=== PATIENT | female | born 1965 | race African-American/Black ===

== ENCOUNTER 2018-05-22 18:25 | Inpatient (IN) | payer OTHER ==
[2018-05-22] MEDS ORDERED: hydrALAZINE 20 MG/ML VIAL SLOW IVP SCH (19:15)
[2018-05-22] MEDS ORDERED: Ondansetron HCl/PF 4 MG/2 ML Vial IVP PRN (19:25)
[2018-05-22] MEDS ORDERED: PROVENTIL INHALER 6.7 G (200 INHALATIONS) INH PRN (19:29)
[2018-05-22] MEDS ORDERED: Sodium Bicarbonate 150 MEQ in Dextrose 5% in Water 1,000 ML IV SCH (19:30)
[2018-05-22] MEDS ORDERED: Carvedilol 6.25 MG TAB PO SCH (19:45)
[2018-05-22 20:06] LABS: Hemoglobin 4.9 g/dL (12.0-16.0); Mean Corpuscular HGB CONC 33.1 g/dL (32.0-36.0); Mean Corpuscular Hemoglobin 30.1 pg (27.0-31.0); Mean Corpuscular Volume 90.9 fL (78.0-98.0); Mean Platelet Volume 8.3 fL (7.4-10.4); Platelet Count 201 thou/uL (130-400); RBC Distribution Width 12.1 % (11.5-14.5); Red Blood Cell (RBC) Count 1.63 mill/uL (4.20-5.40); White Blood Cell (WBC) Count 13.4 thou/uL (4.8-10.8)
[2018-05-22] MEDS ORDERED: cloNIDine 0.1 MG TAB ONE (20:11)
[2018-05-22 20:16] LABS: Anion Gap 23 mmol/L (10-20); Calc. Creatinine Clearance 0 mL/min (70-130); Calcium 8.2 mg/dL (7.8-10.44); Carbon Dioxide 11 mmol/L (22-29); Chloride 111 mmol/L (98-107); Estimated GFR-MDRD 5; Glucose 93 mg/dL (70-105); Potassium 4.5 mmol/L (3.5-5.1); Sodium 140 mmol/L (136-145)
[2018-05-22 20:21] LABS: #Basophils 0.1 thou/uL (0.0-0.2); #Eosinphils 0.1 thou/uL (0.0-0.7); #Lymphocytes 2.4 thou/uL (1.20-3.40); #Monocytes 0.7 thou/uL (0.11-0.59); #Neutrophils 10.2 thou/uL (1.40-6.50); %Basophils 0.4 % (0.0-1.0); %Eosinophils 0.4 % (0.0-10.0); %Lymphocytes 17.6 % (21.0-51.0); %Monocytes 5.3 % (0.0-10.0); %Neutrophils 76.3 % (42.0-75.0); Anisocytosis SLIGHT = 6-15 cells (100X) (0-5/hpf); MDiff Complete? YES; PLT Morphology Comment Appears Adequate
[2018-05-22 20:24] LABS: CKMB 2.3 ng/mL (0-6.6)
[2018-05-22 20:27] LABS: BUN (Urea Nitrogen) 153 mg/dL (9.8-20.1)
[2018-05-22 20:32] LABS: Troponin I 0.303 ng/mL (< 0.028)
[2018-05-22] MEDS ORDERED: Dextrose 5% in Water 1,000 ML IV PRN (23:16)
[2018-05-22] MEDS ORDERED: HumaLOG 300 UNITS/3 ML VIAL SC PRN (23:16)
[2018-05-22] MEDS ORDERED: Dextrose 50% Abboject 50 ML SYRINGE SLOW IVP PRN (23:16)
--- NOTE | 2018-05-22 23:48 | HP ---
PRIMARY CARE PHYSICIAN: Dr. Ynes Jauregui. CODE STATUS: FULL CODE. TIME OF EVALUATION: 7:10 p.m. CHIEF COMPLAINT: Shortness of breath and severe weakness. HISTORY OF PRESENT ILLNESS: A 53 years old female patient with past medical history of chronic anemi a, also history of hypertension, diabetes who came to the hospital after having severe generalized we akness, associated with shortness of breath, no clear triggers, no alleviating factors. Symptoms hav e been present for few weeks now getting very severe today, patient also feels dry. REVIEW OF SYSTEMS: Constitutional: Generalized weakness, dysuria, no fever, no chills. Respiratory : No cough, sputum production or shortness of breath. Cardiovascular: No chest pain, palpitation. Gastrointestinal: The patient had nausea. No vomiting, diarrhea or abdominal pain. YARN DUMPER: No dizzi ness, headache or feeling lightheaded. Genitourinary: No burning with urination. Extremities: No leg swelling. All other systems were reviewed and negative except for the findings mentioned above. PAST MEDICAL HISTORY: As mentioned in the HPI. PAST SURGICAL HISTORY: Positive for cardiac stents x4, hysterectomy, cholecystectomy. PSYCHIATRIC HISTORY: Includes anxiety. FAMILY HISTORY: Father had malignant hypertension. KNOWN ALLERGIES: No known drug allergies. REPORTED MEDICATIONS: Amlodipine, ProAir, ramipril, carvedilol, hydralazine, atorvastatin, Zetia, as pirin, prednisone, levofloxacin, and clonidine. Medications were reconciled by myself. PHYSICAL EXAMINATION: VITAL SIGNS: On presentation, blood pressure 189/103, heart rate was 90, respiratory rate was 24, te mperature 98, oxygen saturation 100. GENERAL APPEARANCE: The patient is alert, oriented, not in any acute distress. HEENT: Eyes: Normal conjunctiva, dry oral mucosa, anicteric. NECK: No JVD. RESPIRATORY: Bilateral air entry. No rales, no wheezing. Symmetric expansion. CARDIOVASCULAR: Normal rate, regular rhythm. No murmurs, no gallop. No edema. ABDOMEN: Soft, normal bowel sounds. MUSCULOSKELETAL: Baseline range of motion and strength. No tenderness. SKIN: Pale, warm and intact. No redness. Peripheral pulses are present. Capillary refill seems to be intact. NEUROLOGIC: Baseline sensory. No evidence of any new focal weakness. Baseline speech. Cranial ner ves seem to be intact. PSYCHIATRIC: The patient is in good mood, no anxiety, oriented, optimal judgment. EKG was reviewed by myself, no acute specific findings were noted, normal sinus rhythm, no evidence o f any acute ischemic event. LABORATORY DATA: Reviewed. The patient has a white count of 13.4; hemoglobin 4 this is after one ID BC hemoglobin was 2; MCV 90; platelet count 201,000. Sodium 140, potassium 4.5, chloride 111, carbon dioxide was 11, anion gap 23, BUN 153, creatinine 9.6, GFR 5, glucose 93, calcium 9.2, troponi n 0.3. ASSESSMENT AND PLAN: The patient will be placed in the hospital with the following medical problems. 1. Severe anemia. The patient presented with hemoglobin 2.2 to [facility], the patient had received one PRBC and repeat hemoglobin here inhouse is 4.9. The patient will receive more blood tr ansfusion, we will monitor hemoglobin, we will adjust the treatment as needed, seems to be chronic. 2. Acute kidney injury that is severe, creatinine 9.62, the previous creatinine that we have on [address] for this patient it has been three years now is 1.0, we will consult Nephrology, will give hydrati on, patient also have severe metabolic acidosis, might need to put the patient on bicarbonate drip, C O2 was 11, we will follow Nephrology recommendations. 3. Severe anion gap metabolic acidosis likely secondary to acute kidney injury. We will treat under lying condition. The patient reported having a scant amount of urine. 4. Non ST elevation myocardial infarction, likely non ST elevation myocardial infarction type 2, tro ponin 0.3, will trend troponins, this is likely secondary to severe anemia. The patient had hemoglob in 2.2, also may be secondary to uncontrolled high blood pressure, patient presented with systolic of 200. We will trend troponins, we will treat underlying conditions. 5. Controlled diabetes type 2, reconcile home medications, place the patient on sliding scale. 6. Deep venous thrombosis prophylaxis.
[2018-05-22 23:52] LABS: Troponin I 0.413 ng/mL (< 0.028)
[2018-05-23] MEDS: cloNIDine 0.1 MG TAB PO SCH ×3 (00:16→16:00)
[2018-05-23] MEDS: hydrALAZINE 25 MG TAB PO SCH ×3 (00:16→16:01)
--- NOTE | 2018-05-23 01:31 | CON ---
DATE OF CONSULTATION: 05/22/2018 CONSULTING PHYSICIAN: Dr. Dinero from ER. REASON FOR CONSULTATION: Acute kidney injury. REASON FOR ADMISSION: Nausea, vomiting, not feeling well. HISTORY OF PRESENT ILLNESS: A 53-year-old female with history of hyperlipidemia, hypertension, diabe leonid, chronic kidney disease, came to the hospital with not feeling well and was found to have severel y anemic and elevated creatinine and Nephrology was consulted. The patient denies having any kidney problems in the past. The patient does have stuttering and she is a poor historian and no family mem bers are available. She denies any chest pain, fever or chills. No skin rash. PAST MEDICAL HISTORY: Positive for type 2 diabetes, hypertension, hyperlipidemia, coronary artery di sease, and possible seizure disorder. HOME MEDICATIONS: List not available. ALLERGIES: No known drug allergies. PAST SURGICAL HISTORY: Tubal ligation, hysterectomy. SOCIAL HISTORY: She used to smoke in the past. No alcohol or illicit drug abuse reported. FAMILY HISTORY: Positive for heart disease. REVIEW OF SYSTEMS: The following complete review of systems was negative, unless otherwise mentioned in the HPI or below: Constitutional: Weight loss or gain, ability to conduct usual activities. Ski n: Rash, itching. Eyes: Double vision, pain. ENT/Mouth: Nose bleeding, neck stiffness, pain, tend erness. Cardiovascular: Palpitations, dyspnea on exertion, orthopnea. Respiratory: Shortness of b reath, wheezing, cough, hemoptysis, fever or night sweats. Gastrointestinal: Poor appetite, abdomin al pain, heartburn, nausea, vomiting, constipation, or diarrhea. Genitourinary: Urgency, frequency, dysuria, nocturia. Musculoskeletal: Pain, swelling. Neurologic/Psychiatric: Anxiety, depression. Allergy/Immunologic: Skin rash, bleeding tendency. PHYSICAL EXAMINATION: GENERAL: This is a well-built female in no apparent distress. VITAL SIGNS: Temperature 98.1, pulse 80, respiratory rate 18, blood pressure 190/112. HEENT: Atraumatic, normocephalic. Oral mucosa is moist. NECK: Supple, no masses. CARDIOVASCULAR: S1, S2 heard. Rate and rhythm regular. RESPIRATORY: Clear. GASTROINTESTINAL: Abdomen is soft. MUSCULOSKELETAL: edema. DERMATOLOGIC: No skin rash. NEUROLOGIC: Alert, awake. PSYCHIATRIC: Mood and affect normal. LABORATORY DATA: Hemoglobin is 4.9, WBC is 13.4. Potassium is 4.5, BUN is 153, and creatinine is 9. 6. ASSESSMENT AND PLAN: 1. Acute kidney injury on chronic kidney disease versus chronic kidney disease. The plan is to hydr ate her and monitor renal function. Old labs not available from 2014 . Recommend doing a renal ultrasound. 2. Edema, controlled. 3. Hypertension, stable. 4. Anemia. Agree with transfusion and rule out any bleed. 5. Metabolic acidosis, supplement bicarbonate. No acute indication for dialysis. Continue hydration and we will follow. Avoid nephrotoxins. Thank you for the consult.
[2018-05-23 05:38] LABS: #Basophils 0.1 thou/uL (0.0-0.2); #Lymphocytes 1.8 thou/uL (1.20-3.40); #Monocytes 0.9 thou/uL (0.11-0.59); #Neutrophils 6.6 thou/uL (1.40-6.50); %Basophils 1.2 % (0.0-1.0); %Eosinophils 0.4 % (0.0-10.0); %Lymphocytes 19.3 % (21.0-51.0); %Monocytes 9.5 % (0.0-10.0); %Neutrophils 69.5 % (42.0-75.0); Hemoglobin 7.5 g/dL (12.0-16.0); Mean Corpuscular HGB CONC 34.1 g/dL (32.0-36.0); Mean Corpuscular Hemoglobin 30.7 pg (27.0-31.0); Mean Platelet Volume 8.6 fL (7.4-10.4); Platelet Count 145 thou/uL (130-400); RBC Distribution Width 11.9 % (11.5-14.5); Red Blood Cell (RBC) Count 2.43 mill/uL (4.20-5.40); White Blood Cell (WBC) Count 9.5 thou/uL (4.8-10.8)
[2018-05-23 05:47] LABS: Anion Gap 17 mmol/L (10-20); Calc. Creatinine Clearance 7 mL/min (70-130); Calcium 7.9 mg/dL (7.8-10.44); Carbon Dioxide 18 mmol/L (22-29); Chloride 106 mmol/L (98-107); Estimated GFR-MDRD 6; Glucose 139 mg/dL (70-105); Potassium 3.7 mmol/L (3.5-5.1); Sodium 137 mmol/L (136-145)
[2018-05-23 05:58] LABS: BUN (Urea Nitrogen) 138 mg/dL (9.8-20.1)
[2018-05-23] MEDS: cloNIDine 0.1 MG TAB PO PRN (06:22)
--- NOTE | 2018-05-23 08:30 | RAD ---
AP VIEW CHEST: Date: 05/23/18 INDICATION: Chest congestion. COMPARISON: Prior exam dated 05/22/18. FINDINGS: The heart size is upper limits of normal. No confluent air space opacity, pleural effusion, or pneumo thorax is evident. No acute osseous abnormality is evident. IMPRESSION: No definite acute cardiopulmonary abnormality. POS: [facility]
[2018-05-23] MEDS: Atorvastatin Calcium 40 MG TAB PO SCH (08:41)
[2018-05-23] MEDS: Amlodipine 10 MG TAB PO SCH (08:41)
[2018-05-23] MEDS: Carvedilol 6.25 MG TAB PO SCH ×2 (08:42→17:25)
[2018-05-23] MEDS: Ezetimibe 10 MG TAB PO SCH (08:42)
[2018-05-23] MEDS: Acetaminophen 325 MG TAB PO PRN (08:42)
[2018-05-23] MEDS: Sodium Bicarbonate 100 MEQ in Dextrose 5% in Water 1,000 ML IV SCH ×2 (09:58→21:33)
--- NOTE | 2018-05-23 11:02 | PDOC.PN ---
- Subjective Encounter Start Date: 05/23/18 Encounter Start Time: 10:00 Subjective: awake, not fully oriented but follows verbal stimuli -: no bleeding per rectum or hematemesis, says she had hysterectomy in 2010 -: no chest pain or sob - Objective Resuscitation Status: Resuscitation Status FULL:Full Resuscitation MAR Reviewed: Yes Vital Signs & Weight: Vital Signs (12 hours) Temp Pulse Pulse Resp BP BP BP 05/23/18 08:41 73 05/23/18 08:38 98.1 F 73 18 172/91 H 05/23/18 07:50 05/23/18 06:58 81 162/89 H 05/23/18 06:22 189/105 H 05/23/18 04:05 98.1 F 87 87 15 175/90 H 175/90 H 05/23/18 01:58 98.3 F 82 16 163/92 H 05/23/18 01:42 98.9 F 81 16 160/91 H 05/23/18 01:23 98.1 F 81 19 159/89 H 05/23/18 00:16 82 05/23/18 00:15 82 05/22/18 23:50 05/22/18 23:35 98.3 F 82 15 158/87 H 05/22/18 23:20 97.9 F 12 169/93 H Pulse Ox 05/23/18 08:41 05/23/18 08:38 98 05/23/18 07:50 100 05/23/18 06:58 05/23/18 06:22 05/23/18 04:05 100 05/23/18 01:58 100 05/23/18 01:42 100 05/23/18 01:23 99 05/23/18 00:16 05/23/18 00:15 05/22/18 23:50 100 05/22/18 23:35 100 05/22/18 23:20 100 Weight Admit Weight 128 lb 11.2 oz Weight 128 lb 11.2 oz I&O: 05/22/18 05/23/18 05/24/18 06:59 06:59 06:59 Intake Total 2006 Output Total 600 Balance 1406 Result Diagrams: 05/23/18 05:05 05/23/18 05:05 Additional Labs: Accuchecks 05/23/18 06:04 POC Glucose 143 H Phys Exam - Physical Examination HEENT: PERRLA, moist MMs Neck: no JVD, supple Respiratory: no wheezing, no rales Cardiovascular: RRR, no significant murmur Gastrointestinal: soft, non-tender, positive bowel sounds Musculoskeletal: pulses present, edema present Neurological: non-focal, moves all 4 limbs Dx/Plan (1) Acute renal failure Status: Acute Qualifiers: Acute renal failure type: unspecified Qualified Code(s): N17.9 - Acute kidney failure, unspecified (2) Metabolic acidosis Code(s): E87.2 - ACIDOSIS Status: Acute (3) Severe anemia Code(s): D64.9 - ANEMIA, UNSPECIFIED Status: Acute Comment: Hb 2.2g now 7.5g after 4 u prbc's (4) Demand ischemia of myocardium Code(s): I24.8 - OTHER FORMS OF ACUTE ISCHEMIC HEART DISEASE Status: Acute (5) CAD (coronary artery disease) Code(s): I25.10 - ATHSCL HEART DISEASE OF [place] CORONARY ARTERY W/O ANG PCTRS Status: Chronic Qualifiers: Coronary Disease-Associated Artery/Lesion type: [place] artery [place] vs. transplanted heart: [place] heart Associated angina: without angina Qualified Code(s): I25.10 - Atherosclerotic heart disease of [place] coronary artery without angina pectoris Comment: prior h/o 4 stents placed by (6) HTN (hypertension) Code(s): I10 - ESSENTIAL (PRIMARY) HYPERTENSION Status: Chronic Qualifiers: Hypertension type: essential hypertension Qualified Code(s): I10 - Essential (primary) hypertension (7) Dyslipidemia Code(s): E78.5 - HYPERLIPIDEMIA, UNSPECIFIED Status: Chronic (8) COPD (chronic obstructive pulmonary disease) Status: Suspected - Plan echo, ct stone protocol, h/h q6h, GI consult, guaic -: iv hydration with bicarb, watch for overload -: might end up on HD, had urine output of 600ml since admission -: is on norvasc, coreg, lipitor, clonidine and hydralazine -: prognosis guarded, unclear etiology for severe anemia * . Had hysterectomy for severe menometrorrhagia in 2010 requiring 6u prbc then. She does not recall previous Hb levels. PT to mobilize as tolerated. Review of Systems - Medications/Allergies Allergies/Adverse Reactions: Allergies Allergy/AdvReac Type Severity Reaction Status Date / Time No Known Allergies Allergy Verified 05/22/18 22:53 Medications: Current Medications Acetaminophen (Tylenol) 650 mg PO Q4H PRN PRN Reason: Headache/Fever or Pain Last Admin: 05/23/18 08:42 Dose: 650 mg Albuterol Sulfate (Proventil Hfa) 3 puff INH PRN PRN PRN Reason: Wheezing Amlodipine Besylate (Norvasc) 10 mg PO DAILY [facility] Last Admin: 05/23/18 08:41 Dose: 10 mg Atorvastatin Calcium (Lipitor) 40 mg PO DAILY [facility] Last Admin: 05/23/18 08:41 Dose: 40 mg Carvedilol (Coreg) 6.25 mg PO BID-[facility] Last Admin: 05/23/18 08:42 Dose: 6.25 mg Clonidine (Catapres) 0.1 mg PO Q4H PRN PRN Reason: BP>180/100 Last Admin: 05/23/18 06:22 Dose: 0.1 mg Clonidine (Catapres) 0.1 mg PO TID [facility] Last Admin: 05/23/18 08:42 Dose: 0.1 mg Dextrose/Water (Dextrose 50%) 25 gm SLOW IVP PRN PRN PRN Reason: Hypoglycemia Ezetimibe (Zetia) 10 mg PO DAILY [facility] Last Admin: 05/23/18 08:42 Dose: 10 mg Glucagon (Glucagon) 1 mg IM PRN PRN PRN Reason: Hypoglycemia Hydralazine HCl (Apresoline) 50 mg PO TID [facility] Last Admin: 05/23/18 08:41 Dose: 50 mg Dextrose/Water (D5w) 1,000 mls @ 0 mls/hr IV .Q0M PRN PRN Reason: Hypoglycemia Sodium Bicarbonate 100 meq/ (Dextrose/Water) 1,100 mls @ 100 mls/hr IV .Q11H [facility] Last Admin: 05/23/18 09:58 Dose: 1,100 mls Insulin Human Lispro (Humalog) 0 units SC .MILD SLIDING SCALE PRN PRN Reason: Mild Correctional Scale Ondansetron HCl (Zofran) 4 mg IVP Q6H PRN PRN Reason: Nausea/Vomiting
[2018-05-23 12:19] LABS: Hemoglobin 7.8 g/dL (12.0-16.0)
--- NOTE | 2018-05-23 14:09 | CT ---
CT OF THE ABDOMEN AND PELVIS WITHOUT IV CONTRAST: Date: 05/23/18 HISTORY: Renal failure and severe anemia. COMPARISON: CT abdomen and pelvis dated 08/31/14. FINDINGS: There are small bilateral pleural effusions and bibasilar atelectasis. Unopacified liver and spleen are unremarkable. The gallbladder is surgically absent. There is nonspecific perinephric stranding. There is a stable cyst within the right kidney. Unopacified pancreas and spleen are unremarkable. No hydronephrosis is grossly evident. The unopacified large and small bowel are grossly unremarkable. There is a small amount of fluid seen within the lower pelvis. There is worsening atherosclerotic calcification noted involving the abdominopelvic vasculature. There is nonspecific stranding within the subcutaneous tissues of the abdomen and pelvis. There is scattered degenerative and osteoarthritic change. IMPRESSION: 1. Small bilateral pleural effusions, ascites and mild anasarca. 2. Stable right renal cyst. No hydronephrosis demonstrated. 3. Nonspecific mild perinephric stranding. 4. Worsening atherosclerotic disease of the abdominopelvic vasculature. POS: [place]
[2018-05-23] MEDS ORDERED: Bisacodyl 10 MG SUPP PR SCH (15:00)
[2018-05-23 18:10] LABS: Hemoglobin 7.5 g/dL (12.0-16.0)
--- NOTE | 2018-05-23 20:27 | PRG ---
DATE OF SERVICE: 05/23/2018 SUBJECTIVE: Patient was seen and examined at bedside and overnight events noted. Patient denies any shortness of breath or chest pain or palpitation. No history of nausea or vomiting or diarrhea or f ever or chills or cramps. OBJECTIVE: GENERAL: This is a well-built female in no apparent distress. VITAL SIGNS: Temperature 98.5, pulse 84, respiratory rate 14, blood pressure 112/63. HEENT: Atraumatic, normocephalic. Oral mucosa is moist. NECK: Supple CARDIOVASCULAR: S1, S2 heard. Rate and rhythm regular. RESPIRATORY: Clear to auscultation. GASTROINTESTINAL: Abdomen is soft. MUSCULOSKELETAL: No tenderness, no edema. DERMATOLOGIC: No skin rash. NEUROLOGIC: Alert, awake, and oriented x3. No focal neurologic deficits. Moving all the extremitie s. PSYCHIATRIC: Mood and affect normal. LABORATORY DATA: Hemoglobin is 7.8, potassium is 3.7, BUN is , creatinine is 8.8. ASSESSMENT AND PLAN: 1. Acute kidney injury on chronic kidney disease, stage 3. Renal function with slight improvement. We will continue hydration. TTP is also a possibility. discussion with Dr. Branch and albaro chino is to check for hemolytic anemia. I will check LDH, haptoglobin, and Fabienne test. 2. Edema, controlled. 3. Hypertension, stable. 4. Anemia, status post transfusion and we will monitor. The patient and family concerned about HIV status. Also, we will check HIV. We will follow.
[2018-05-23 22:12] LABS: Bilirubin Negative (Negative); Blood, Urine Negative (Negative); Clarity CLEAR (Clear); Glucose, Urine (Dipstick) Negative (Negative); Leukocyte Negative (Negative); Nitrite Negative (Negative); Protein, Urine (Dipstick) 100 mg/dL (Neg-Trace); Specific Gravity, Urine 1.009 (1.002-1.036); Urobilinogen 0.2 mg/dL (0.2-1.0); pH, Urine 6.5 (5.0-9.0)
[2018-05-23 22:14] LABS: Bacteria/HPF None Seen HPF (None Seen); Hyaline Casts/LPF 0-3 HYALINE CAST LPF (0-3 Hyaline); Pathc Cast-AUWi Flag 0.14 (0-2.49); Squamous Epithelial 0-3 HPF (0-3); WBC/HPF 0-3 HPF (0-3)
[2018-05-23 23:07] LABS: Hemoglobin 8.8 g/dL (12.0-16.0)
[2018-05-23 23:16] LABS: Creatinine, Urine 47.14 mg/dL (47-110)
--- NOTE | 2018-05-24 00:59 | CON ---
DATE OF CONSULTATION: 05/23/2018 GASTROENTEROLOGY CONSULTATION CHIEF COMPLAINT: Weakness and shortness of breath. HISTORY OF PRESENT ILLNESS: Ms. Peacock is a 53-year-old woman who came to the emergency room with w eakness and shortness of breath. She was found to have a hemoglobin of 2.2 in [place] and received a unit of blood and was transferred to [place] at which point, repeat CBC showed a hemoglobin of 4.9. She received 3 more units of transfusion and her hemoglobin has improved to 7.8. She reports nausea for the last 6 months and loss of appetite. She has lost 40 pounds over the last 6 months. She has chronic back pain and takes naproxen daily and takes ibuprofen intermittently around once per week. She states that she has a bowel movement once per month at most. She has had no visible blood in th e stool, but then had not had a bowel movement for over a month. She does feel better after transfus ion, but still feels weak. She had an upper endoscopy in 10/[address] Wick that was unremarkable. Biopsies from the stomach were negative for H. pylori. She had colonoscopy in 2014 with multiple h yperplastic polyps removed. She had repeat colonoscopy in 10/2015, again with multiple hyperplastic polyps removed. She was found to have acute renal failure. Her baseline creatinine is not really kn own. She had not seen a doctor in close to a year. PAST MEDICAL HISTORY: Diabetes mellitus, hypertension and coronary artery disease. It has been a ye ar since her last coronary stent. PAST SURGICAL HISTORY: Cholecystectomy, hysterectomy, coronary stents. FAMILY HISTORY: She thinks her father might have had colon cancer. There was a remote history of tu berculosis according to the office chart and the patient. SOCIAL HISTORY: Last smoked marijuana in the last month. No other smoking, no alcohol and no histor y of IV drugs. ALLERGIES: No known drug allergies. MEDICATIONS PRIOR TO ADMISSION: Hydralazine, clonidine, ramipril, pantoprazole, naproxen, hydrocodon e with acetaminophen 10/325, gabapentin , Plavix, carvedilol, baclofen, atorvastatin, aspirin, a mlodipine, albuterol. REVIEW OF SYSTEMS: Negative x10 systems reviewed except as stated in the history of present illness. PHYSICAL EXAMINATION: VITAL SIGNS: Temperature 98.1, pulse 73, blood pressure 172/91. GENERAL: She is in no acute distress. She is awake and alert. HEENT: Eyes have no scleral icterus. Oropharynx is clear without lesions. NECK: No cervical or supraclavicular lymphadenopathy. LUNGS: Clear to auscultation bilaterally. HEART: Regular rate and rhythm with a 2/6 systolic murmur at the apex. ABDOMEN: Soft, nontender, nondistended. Bowel sounds are present. EXTREMITIES: No lower extremity edema. LABORATORY DATA: INR 1.0, PTT 29.6. Hemoglobin in [place] was 2.2. After 1 unit, hemoglobin went up to 4.9 here and then after 3 more units, hemoglobin went up to 7.8. Most recent LFTs were from [facility] outside facility in [place]. Her creatinine was 10.0. Her bilirubin was 0.5, alkaline phosphat ase 35, AST 14, ALT 41, albumin 2.7. White blood cell count 12.96. White blood cell count repeat to day is 9.5. Platelets 145,000. Repeat creatinine after transfusion and fluids is 8.8. BNP was 1900 . Urine was positive for cannabinoids and opioids. IMAGING: She had a CT scan of the abdomen and pelvis without contrast that showed some anasarca and mild ascites in the pelvis. Atherosclerotic disease of the abdomen vasculature was also noted. IMPRESSION: 1. Severe normocytic anemia. This is likely multifactorial. She has been on aspirin and naproxen a nd ibuprofen and Plavix and certainly could have a peptic ulcer with bleeding. There is no acute ble eding now and rectal exam reveals brown stool in the rectal vault. She has also been on a proton pum p inhibitor daily already as an outpatient and the anemia is likely also significantly worsened by th e renal failure. Noncontrast CT did not show any signs of retroperitoneal bleeding. 2. Chronic nausea and loss of appetite with a 40-pound weight loss over the last 6 months per the cheryl ortiz. 3. Elevated troponin and likely high output heart failure from the severe anemia. Symptomatically, she has improved after transfusion. 4. Acute versus acute on chronic renal failure. 5. Coronary artery disease on aspirin and Plavix with multiple stents placed in the past. RECOMMENDATIONS: 1. Proton pump inhibitor. 2. She will require EGD to evaluate the chronic nausea and loss of appetite and evaluate for peptic ulcers or other bleeding source in the stomach. She does have a colonoscopy in 2016 that only showed hyperplastic polyps and she should not require repeat colonoscopy at this time. 3. Check iron studies, B12, folate and reticulocyte count. 4. Await hepatitis panel. Would transfuse 1 more unit of blood.
[2018-05-24] MEDS: Sodium Bicarbonate 100 MEQ in Dextrose 5% in Water 1,000 ML IV SCH ×2 (03:40→17:59)
[2018-05-24 06:17] LABS: Iron 24 ug/dL (50-170); Iron Binding Capacity, Total 278 mcg/dL (265-497)
[2018-05-24 06:34] LABS: Hep B Surf Ag Non-Reactive S/CO (NonReactive)
[2018-05-24 06:35] LABS: HBSAg Index 0.24 S/CO (0-0.99); Hep C IgG Ab Non-Reactive (NonReactive)
[2018-05-24 06:36] LABS: Hep A IgM AB Non-Reactive (NonReactive); Hep A IgM S/CO 0.07 S/CO (0-0.79); Hep C Index 0.03 S/CO (0-0.79)
[2018-05-24 06:39] LABS: HBCM Index 0.06 S/CO (0-0.79); Hepatitis B Core IGM Abs Non-Reactive (NonReactive)
[2018-05-24] MEDS: Amlodipine 10 MG TAB PO SCH (07:41)
[2018-05-24 07:42] LABS: Ferritin 36.87 ng/mL (10-291)
[2018-05-24] MEDS: Carvedilol 6.25 MG TAB PO SCH ×2 (07:42→17:58)
[2018-05-24] MEDS: hydrALAZINE 25 MG TAB PO SCH ×3 (07:42→20:30)
[2018-05-24] MEDS: Atorvastatin Calcium 40 MG TAB PO SCH (07:42)
[2018-05-24] MEDS: Ezetimibe 10 MG TAB PO SCH (07:42)
[2018-05-24 07:47] LABS: Folate (Folic Acid) 10.5 ng/mL (7.0-31.4)
[2018-05-24 07:49] LABS: Albumin 2.7 g/dL (3.5-5.0); Anion Gap 15 mmol/L (10-20); Calc. Creatinine Clearance 8 mL/min (70-130); Calcium 8.2 mg/dL (7.8-10.44); Carbon Dioxide 24 mmol/L (22-29); Chloride 100 mmol/L (98-107); Estimated GFR-MDRD 6; Glucose 110 mg/dL (70-105); Phosphorus 4.7 mg/dL (2.3-4.7); Potassium 3.5 mmol/L (3.5-5.1); Sodium 135 mmol/L (136-145)
[2018-05-24 08:01] LABS: BUN (Urea Nitrogen) 115 mg/dL (9.8-20.1); BUN/Creatinine Ratio 13.82
[2018-05-24] MEDS ORDERED: Pantoprazole 40 MG VIAL IVP SCH (09:00)
--- NOTE | 2018-05-24 11:02 | PDOC.PN ---
- Subjective Encounter Start Date: 05/24/18 Encounter Start Time: 09:30 Subjective: no sob or chest pain -: is npo for egd -: no johnny bleeding, weakness or nausea/vomiting - Objective Resuscitation Status: Resuscitation Status FULL:Full Resuscitation MAR Reviewed: Yes Vital Signs & Weight: Vital Signs (12 hours) Temp Pulse Resp BP BP Pulse Ox 05/24/18 07:42 77 180/100 H 05/24/18 07:41 77 180/100 H 05/24/18 07:10 98.8 F 77 18 180/100 H 96 05/24/18 04:00 98.5 F 75 16 170/99 H 95 05/24/18 00:00 80 135/92 H Weight Admit Weight 128 lb 11.2 oz Weight 137 lb I&O: 05/23/18 05/24/18 05/25/18 06:59 06:59 06:59 Intake Total 2005 1290 Output Total 600 1100 Balance 1406 190 Result Diagrams: 05/23/18 22:56 05/24/18 05:19 Additional Labs: Accuchecks 05/24/18 05/23/18 05/23/18 05:19 20:26 16:45 POC Glucose 123 H 109 178 H 05/23/18 11:10 POC Glucose 142 H Phys Exam - Physical Examination HEENT: PERRLA, moist MMs Neck: no JVD, supple Respiratory: no wheezing, no rales Cardiovascular: RRR, no significant murmur Gastrointestinal: soft, non-tender, no distention, positive bowel sounds Musculoskeletal: no edema, pulses present Neurological: non-focal, moves all 4 limbs Dx/Plan (1) Acute renal failure Status: Acute Qualifiers: Acute renal failure type: unspecified Qualified Code(s): N17.9 - Acute kidney failure, unspecified (2) Metabolic acidosis Code(s): E87.2 - ACIDOSIS Status: Acute Comment: resolving (3) Severe anemia Code(s): D64.9 - ANEMIA, UNSPECIFIED Status: Acute Comment: initial Hb 2.2g , s/p 4 u prbc's (4) Demand ischemia of myocardium Code(s): I24.8 - OTHER FORMS OF ACUTE ISCHEMIC HEART DISEASE Status: Acute (5) CAD (coronary artery disease) Code(s): I25.10 - ATHSCL HEART DISEASE OF [place] CORONARY ARTERY W/O ANG PCTRS Status: Chronic Qualifiers: Coronary Disease-Associated Artery/Lesion type: [place] artery [place] vs. transplanted heart: [place] heart Associated angina: without angina Qualified Code(s): I25.10 - Atherosclerotic heart disease of [place] coronary artery without angina pectoris Comment: prior h/o 4 stents placed by (6) HTN (hypertension) Code(s): I10 - ESSENTIAL (PRIMARY) HYPERTENSION Status: Chronic Qualifiers: Hypertension type: essential hypertension Qualified Code(s): I10 - Essential (primary) hypertension (7) Dyslipidemia Code(s): E78.5 - HYPERLIPIDEMIA, UNSPECIFIED Status: Chronic (8) COPD (chronic obstructive pulmonary disease) Status: Suspected - Plan for EGD today -: h/h stable, not much improvement with creatinine but hco3 is closing -: urine output of 1100ml/last 24hrs, occult blood was +ve -: htn labile, would prefer to be higher for renal perfusion -: on coreg, hydralazine, lipitor and zetia * . PT/OT to mobilize as tolerated. Likely will need to start HD, still making urine, watch for vol overload is on D5W with 100meq hco3 @100mls/hr, may dc hco3 in fluid if ok with . Review of Systems - Medications/Allergies Allergies/Adverse Reactions: Allergies Allergy/AdvReac Type Severity Reaction Status Date / Time No Known Allergies Allergy Verified 05/22/18 22:53 Medications: Current Medications Acetaminophen (Tylenol) 650 mg PO Q4H PRN PRN Reason: Headache/Fever or Pain Last Admin: 05/23/18 08:42 Dose: 650 mg Albuterol Sulfate (Proventil Hfa) 3 puff INH PRN PRN PRN Reason: Wheezing Amlodipine Besylate (Norvasc) 10 mg PO DAILY [facility] Last Admin: 05/24/18 07:41 Dose: 10 mg Atorvastatin Calcium (Lipitor) 40 mg PO DAILY [facility] Last Admin: 05/24/18 07:42 Dose: 40 mg Carvedilol (Coreg) 6.25 mg PO BID-[facility] Last Admin: 05/24/18 07:42 Dose: 6.25 mg Clonidine (Catapres) 0.1 mg PO Q4H PRN PRN Reason: BP>180/100 Last Admin: 05/23/18 06:22 Dose: 0.1 mg Dextrose/Water (Dextrose 50%) 25 gm SLOW IVP PRN PRN PRN Reason: Hypoglycemia Ezetimibe (Zetia) 10 mg PO DAILY [facility] Last Admin: 05/24/18 07:42 Dose: 10 mg Ferrous Gluconate (Fergon) 324 mg PO QAM-WM [facility] Glucagon (Glucagon) 1 mg IM PRN PRN PRN Reason: Hypoglycemia Hydralazine HCl (Apresoline) 25 mg PO TID [facility] Last Admin: 05/24/18 07:42 Dose: 25 mg Dextrose/Water (D5w) 1,000 mls @ 0 mls/hr IV .Q0M PRN PRN Reason: Hypoglycemia Sodium Bicarbonate 100 meq/ (Dextrose/Water) 1,100 mls @ 100 mls/hr IV .Q11H [facility] Last Admin: 05/24/18 03:40 Dose: 1,100 mls Insulin Human Lispro (Humalog) 0 units SC .MILD SLIDING SCALE PRN PRN Reason: Mild Correctional Scale Ondansetron HCl (Zofran) 4 mg IVP Q6H PRN PRN Reason: Nausea/Vomiting Pantoprazole Sodium (Protonix) 40 mg IVP Q12HR [facility] Last Admin: 05/24/18 07:41 Dose: 40 mg Sodium Chloride (Flush - Normal Saline) 10 ml IVF Q12HR [facility] Sodium Chloride (Flush - Normal Saline) 10 ml IVF PRN PRN PRN Reason: Saline Flush
--- NOTE | 2018-05-24 11:17 | OP ---
DATE OF PROCEDURE: 05/24/2018 SURGEON: Dr. Tuan Calvillo PREOPERATIVE DIAGNOSIS: Anemia secondary to gastrointestinal blood loss. OPERATIVE NOTE: After informed consent was obtained, the patient placed in the left lateral decubitu s position. Anesthesia was administered per the Anesthesia Department. Forward-viewing endoscope wa s inserted into esophagus under direct visualization with ease and passed to the second portion of th e duodenum with ease. Second portion of the duodenum was normal. Random biopsies were taken from th e second portion of the duodenum. Duodenal bulb was normal. The pylorus, antrum, body, fundus, and cardia were normal except for some mild erosive gastritis in the antrum. Biopsies were taken. Retro flexion in the stomach was normal. The esophagus was normal throughout. ASSESSMENT: 1. Mild erosive antritis - status post biopsy. 2. Otherwise, normal esophagogastroduodenoscopy - anemia, most likely secondary to anemia of chronic disease. RECOMMENDATIONS: 1. Await histopathology. 2. PPI. 3. Trial of iron.
[2018-05-24] MEDS ORDERED: PROPOFOL 200 MG/20 ML VIAL ONE (13:25)
--- NOTE | 2018-05-24 18:58 | PRG ---
DATE OF SERVICE: 05/24/2018 SUBJECTIVE: Patient was seen and examined at bedside and overnight events noted. Patient denies any shortness of breath or chest pain or palpitation. No history of nausea or vomitin g or diarrhea or fever or chills or cramps. OBJECTIVE: GENERAL: This is a well-built female, in no apparent distress. VITAL SIGNS: Temperature 98.7, pulse 74, respiratory rate 18, blood pressure 174/94. HEENT: Atraumatic, normocephalic. Oral mucosa is moist. NECK: Supple. CARDIOVASCULAR: S1 and S2 heard. Rate and rhythm regular. RESPIRATORY: Clear to auscultation. GASTROINTESTINAL: Abdomen is soft. MUSCULOSKELETAL: No tenderness. No edema. DERMATOLOGIC: No skin rash. NEUROLOGIC: Alert and awake and oriented x3. No focal neurologic deficits. Moving all the extremit ies. PSYCHIATRIC: Mood and affect normal. LABORATORY DATA: Potassium is 3.5, BUN 115, creatinine is 8.3. ASSESSMENT AND PLAN: 1. Acute kidney injury on chronic kidney disease. Renal function with slow improvement. 2. Edema, controlled. 3. Hypertension, stable. 4. Anemia, status post transfusion. 5. Proteinuria. Immunologic workup pending. We will follow.
[2018-05-24] MEDS: Acetaminophen 325 MG TAB PO PRN (19:43)
[2018-05-25] MEDS: Sodium Bicarbonate 100 MEQ in Dextrose 5% in Water 1,000 ML IV SCH (00:07)
[2018-05-25 05:37] LABS: Albumin 2.7 g/dL (3.5-5.0); Anion Gap 13 mmol/L (10-20); BUN (Urea Nitrogen) 111 mg/dL (9.8-20.1); BUN/Creatinine Ratio 14.21; Calc. Creatinine Clearance 8 mL/min (70-130); Calcium 8.1 mg/dL (7.8-10.44); Carbon Dioxide 25 mmol/L (22-29); Chloride 100 mmol/L (98-107); Estimated GFR-MDRD 7; Glucose 88 mg/dL (70-105); Phosphorus 5.1 mg/dL (2.3-4.7); Potassium 3.4 mmol/L (3.5-5.1); Sodium 135 mmol/L (136-145)
[2018-05-25 05:44] LABS: #Eosinphils 0.2 thou/uL (0.0-0.7); #Neutrophils 7.9 thou/uL (1.40-6.50); %Basophils 0.2 % (0.0-1.0); %Eosinophils 2.1 % (0.0-10.0); %Lymphocytes 17.9 % (21.0-51.0); %Monocytes 8.5 % (0.0-10.0); %Neutrophils 71.3 % (42.0-75.0); Hemoglobin 8.4 g/dL (12.0-16.0); Mean Corpuscular HGB CONC 34.3 g/dL (32.0-36.0); Mean Corpuscular Hemoglobin 30.9 pg (27.0-31.0); Mean Corpuscular Volume 90.2 fL (78.0-98.0); Mean Platelet Volume 8.2 fL (7.4-10.4); Platelet Count 167 thou/uL (130-400); RBC Distribution Width 12.3 % (11.5-14.5); Red Blood Cell (RBC) Count 2.71 mill/uL (4.20-5.40); White Blood Cell (WBC) Count 11.1 thou/uL (4.8-10.8)
[2018-05-25 05:55] LABS: HIV (1/2) Antibody/Antigen Non-Reactive (NonReactive); HIV 1/2 INDEX 0.17 S/CO (<1.00)
[2018-05-25] MEDS: cloNIDine 0.1 MG TAB PO PRN (06:08)
[2018-05-25] MEDS ORDERED: hydrALAZINE 25 MG TAB PO SCH (07:18)
[2018-05-25] MEDS: Carvedilol 6.25 MG TAB PO SCH ×2 (09:40→17:33)
[2018-05-25] MEDS: NIFEdipine XL 60 MG TAB PO SCH (09:40)
[2018-05-25] MEDS: hydrALAZINE 25 MG TAB PO SCH ×3 (09:41→20:48)
[2018-05-25] MEDS: Atorvastatin Calcium 40 MG TAB PO SCH (09:41)
[2018-05-25] MEDS: Ezetimibe 10 MG TAB PO SCH (09:41)
[2018-05-25] MEDS: Ferrous Gluconate 324 MG TAB PO SCH (09:41)
[2018-05-25] MEDS: Lactated Ringer's 1,000 ML IV SCH ×2 (09:59→23:41)
--- NOTE | 2018-05-25 11:26 | PDOC.PN ---
- Subjective Encounter Start Date: 05/25/18 Encounter Start Time: 10:45 Subjective: no sob or chest pain -: no diarrhea or abd pain -: is amb to restroom but is a bit shaky and weak - Objective Resuscitation Status: Resuscitation Status FULL:Full Resuscitation MAR Reviewed: Yes Vital Signs & Weight: Vital Signs (12 hours) Temp Pulse Resp BP BP Pulse Ox 05/25/18 09:41 75 05/25/18 09:40 75 05/25/18 07:10 97.7 F 75 18 167/98 H 97 05/25/18 06:50 167/98 H 05/25/18 06:08 196/105 H 05/25/18 04:40 98.6 F 79 16 175/105 H Weight Admit Weight 128 lb 11.2 oz Weight 137 lb I&O: 05/24/18 05/25/18 05/26/18 06:59 06:59 06:59 Intake Total 1290 480 900 Output Total 1100 600 Balance 190 480 300 Result Diagrams: 05/25/18 04:55 05/25/18 04:55 Additional Labs: Accuchecks 05/25/18 05/25/18 05/24/18 11:05 06:03 20:34 POC Glucose 146 H 102 149 H 05/24/18 05/24/18 16:54 13:37 POC Glucose 141 H 131 H Phys Exam - Physical Examination HEENT: PERRLA, moist MMs Neck: no JVD, supple Respiratory: no wheezing, no rales Cardiovascular: RRR, no significant murmur Gastrointestinal: soft, non-tender, positive bowel sounds Musculoskeletal: no edema, pulses present Neurological: non-focal, moves all 4 limbs Psychiatric: normal affect, A&O x 3 Dx/Plan (1) Acute renal failure Status: Acute Qualifiers: Acute renal failure type: unspecified Qualified Code(s): N17.9 - Acute kidney failure, unspecified (2) Metabolic acidosis Code(s): E87.2 - ACIDOSIS Status: Acute Comment: resolving (3) Severe anemia Code(s): D64.9 - ANEMIA, UNSPECIFIED Status: Acute Comment: initial Hb 2.2g , s/p 4 u prbc's (4) Demand ischemia of myocardium Code(s): I24.8 - OTHER FORMS OF ACUTE ISCHEMIC HEART DISEASE Status: Acute (5) CAD (coronary artery disease) Code(s): I25.10 - ATHSCL HEART DISEASE OF [place] CORONARY ARTERY W/O ANG PCTRS Status: Chronic Qualifiers: Coronary Disease-Associated Artery/Lesion type: [place] artery [place] vs. transplanted heart: [place] heart Associated angina: without angina Qualified Code(s): I25.10 - Atherosclerotic heart disease of [place] coronary artery without angina pectoris Comment: prior h/o 4 stents placed by (6) HTN (hypertension) Code(s): I10 - ESSENTIAL (PRIMARY) HYPERTENSION Status: Chronic Qualifiers: Hypertension type: essential hypertension Qualified Code(s): I10 - Essential (primary) hypertension (7) Dyslipidemia Code(s): E78.5 - HYPERLIPIDEMIA, UNSPECIFIED Status: Chronic (8) COPD (chronic obstructive pulmonary disease) Status: Suspected - Plan creatinine around 7.8 down from 9.6 on admit -: very slow improvement in renal function, no vol overload with fluid resusci -: egd showed mild erosive gastritis, on protonix -: increase coreg to 12.5 bid, hydralazine to 50mg tid -: change norvasc to procardia xl, dc iv hco3 * . ARF mgmt per nephrology adv Review of Systems - Medications/Allergies Allergies/Adverse Reactions: Allergies Allergy/AdvReac Type Severity Reaction Status Date / Time No Known Allergies Allergy Verified 05/22/18 22:53 Medications: Current Medications Acetaminophen (Tylenol) 650 mg PO Q4H PRN PRN Reason: Headache/Fever or Pain Last Admin: 05/24/18 19:43 Dose: 650 mg Albuterol Sulfate (Proventil Hfa) 3 puff INH PRN PRN PRN Reason: Wheezing Atorvastatin Calcium (Lipitor) 40 mg PO DAILY [facility] Last Admin: 05/25/18 09:41 Dose: 40 mg Carvedilol (Coreg) 12.5 mg PO BID-WM [facility] Last Admin: 05/25/18 09:40 Dose: 12.5 mg Clonidine (Catapres) 0.1 mg PO Q4H PRN PRN Reason: BP>180/100 Last Admin: 05/25/18 06:08 Dose: 0.1 mg Dextrose/Water (Dextrose 50%) 25 gm SLOW IVP PRN PRN PRN Reason: Hypoglycemia Ezetimibe (Zetia) 10 mg PO DAILY [facility] Last Admin: 05/25/18 09:41 Dose: 10 mg Ferrous Gluconate (Fergon) 324 mg PO QAM-WM [facility] Last Admin: 05/25/18 09:41 Dose: 324 mg Glucagon (Glucagon) 1 mg IM PRN PRN PRN Reason: Hypoglycemia Hydralazine HCl (Apresoline) 50 mg PO TID [facility] Last Admin: 05/25/18 09:41 Dose: 50 mg Dextrose/Water (D5w) 1,000 mls @ 0 mls/hr IV .Q0M PRN PRN Reason: Hypoglycemia Lactated Ringer's (Lactated Ringer's) 1,000 mls @ 75 mls/hr IV .[id number] [facility] Last Admin: 05/25/18 09:59 Dose: 1,000 mls Insulin Human Lispro (Humalog) 0 units SC .MILD SLIDING SCALE PRN PRN Reason: Mild Correctional Scale Nifedipine (Procardia Xl) 60 mg PO DAILY [facility] Last Admin: 05/25/18 09:40 Dose: 60 mg Ondansetron HCl (Zofran) 4 mg IVP Q6H PRN PRN Reason: Nausea/Vomiting Pantoprazole Sodium (Protonix) 40 mg PO DAILY [facility] Last Admin: 05/25/18 09:41 Dose: 40 mg Sodium Chloride (Flush - Normal Saline) 10 ml IVF Q12HR [facility] Last Admin: 05/25/18 09:40 Dose: 10 ml Sodium Chloride (Flush - Normal Saline) 10 ml IVF PRN PRN PRN Reason: Saline Flush
--- NOTE | 2018-05-25 14:13 | PQF ---
CLINICAL DOCUMENTATION IMPROVEMENT CLARIFICATION FORM: ICD-10 Updated PLEASE DO AN ADDENDUM TO THE PROGRESS NOTE WITH ANY DOCUMENTATION UPDATES OR ADDITIONS AND CARRY THROUGH TO DC SUMMARY. THANK YOU. DATE: 05/25 ATTN: DR. Liborio HORTON Please exercise your independent, professional judgment in responding to the clarification form. Clinical indicators are provided on the bottom of this form for your review. Please check appropriate box(s): MD TYPE: [ ] NSTEMI (W/CAD) [ ] MD Type II [ x ] Demand Ischemia [ ] Other diagnosis [ ] Unable to determine CLINICAL INDICATORS - SIGNS / SYMPTOMS / LABS TROPONIN I: 0.303, 0.413 (ON ADMIT, 05/22) PHYSICIAN H&P DOCUMENTATION 05/22 (JO): PAST SURGICAL HX: POSITIVE FOR CARDIAC STENTS X4. ASSESSMENT & PLAN: 1) SEVERE ANEMIA. PT PRESENT WITH HEMOGLOBIN 2.2 TO [facility], REC'D 1U PRBC & REPEAT HEMOGLOBIN HERE INHOUSE IS 4.9.; 4) NSTEMI, LIKELY NSTEMI TYPE 2, THIS IS LIKELY 2/2 SEVERE ANEMIA PN 05/23 - 3 (CLIFFORD): DX/PLAN: 3) SEVERE ANEMIA, ACUTE, HB 2.2 NOW 7.5 AFTER 4U PRBC'S; 4) DEMAND ISCHEMIA OF THE MYOCARDIUM, ACUTE; 5) CAD W/PRIOR H/ O 4 STENTS RISKS: SEVERE ANEMIA ON PRESENTATION CAD W/STENTS HTN DM II TREATMENTS: ECHO CARDIAC ENZYMES X2 (05/22) TRANSFUSION 4U PRBC (05/22 - 05/23) TELEMETRY MONITORING GI CONSULT THANK YOU! Ann (This form is maintained as a part of the permanent medical record) 2014 [employer]. All Rights Reserved Ann Tim, RN, BSN [email or web address] Office: [phone] [facility]
--- NOTE | 2018-05-25 14:23 | PQF ---
CLINICAL DOCUMENTATION IMPROVEMENT CLARIFICATION FORM: ICD-10 Updated PLEASE DO AN ADDENDUM TO THE PROGRESS NOTE WITH ANY DOCUMENTATION UPDATES OR ADDITIONS AND CARRY THROUGH TO DC SUMMARY. THANK YOU. Date: 05/25 ATTN: DR. Liborio HORTON Please exercise your independent, professional judgment in responding to the clarification form. Clinical indicators are provided on the bottom of this form for your review. Please check appropriate box(s): [ ] Protein Calorie Malnutrition: [ ] Mild [ ] Moderate [ ] Severe [ ] Other Malnutrition (please specify) __ [ ] Underweight without malnutrition [ ] Cachexia [ ] Other diagnosis [ x] Unable to determine CLINICAL INDICATORS - SIGNS / SYMPTOMS / LABS BMI: 20.8 BEE FARMER ASSESSMENT 05/23: SUBJ ASSESSMENT: PT REPORTS FEELING POORLY FOR THE LAST YEAR, "CAN'T EAT" DESPITE FEELING HUNGRY. SHE STATES THAT WHEN FOOD IS PUT IN FRONT OF HER, SHE MAY BE ABLE TO TAKE A FEW BITES BUT THEN LOSES HER APPETITE AND/OR BECOME NAUSEOUS. REPORTS USUAL BODY WEIGHT AROUND 160 LBS A YEAR AGO. OBJECTIVE ASSESSMENT: -19.6% WEIGHT CHANGE IN 1 YEAR NUTRITION DIAGNOSIS: MALNUTRITION EVIDENCED BY LIMITED PO INTAKE X1 YEAR, 19.6% WEIGHT LOSS IN 1 YEAR RISK FACTORS: DECREASED PO INTAKE X1 YEAR DM II CKD TREATMENT: BEE FARMER ASSESSMENT NUTRITIONAL SUPPLEMENT (SUPLENA TID) Moderate Malnutrition (in acute illness) Energy Intake: <75% of estimated energy requirement for > 7 days Weight Loss: 1-2%/1 week; 5%/ 1 month; 7.5%/3 months Other: mild body fat loss; mild muscle mass loss; mild fluid accumulation; Severe Malnutrition (in acute illness) Energy Intake: < 50% of estimated energy requirement for > 5 days Weight Loss: >1-2%/1 week; >5%/1 month; >7.5%/3 months Other: moderate body fat loss; moderate muscle mass loss; moderate- severe fluid accumulation; measurably reduced bail attacher strength Moderate Malnutrition (in chronic illness) Energy Intake: <75% of estimated energy requirement for >1 month Weight Loss: 5%/1 month; 7.5%/3 months; 10%/6 months; 20%/1 year Other: mild body fat loss; mild muscle mass loss; mild fluid accumulation Severe Malnutrition (in chronic illness) Energy Intake: <75% of estimated energy requirement for >1 month Weight Loss: >5%/1 month; >7.5%/3 months; >10%/6 months; >20%/1 year Other: severe body fat loss; severe muscle mass loss; severe fluid accumulation; measurably reduced bail attacher strength THANK YOU! Ann (This form is maintained as a part of the permanent medical record) 2014 [employer]. All Rights Reserved Ann Tim RN, BSN [email or web address] Office: [phone] [facility]ENTER[facility]
--- NOTE | 2018-05-25 14:55 | PQF ---
CLINICAL DOCUMENTATION IMPROVEMENT CLARIFICATION FORM: ICD-10 Updated PLEASE DO AN ADDENDUM TO THE PROGRESS NOTE WITH ANY DOCUMENTATION UPDATES OR ADDITIONS AND CARRY THROUGH TO DC SUMMARY. THANK YOU. DATE: 05/25 ATTN: DR. Liborio HORTON Please exercise your independent, professional judgment in responding to the clarification form. Clinical indicators are provided on the bottom of this form for your review. Please check appropriate box(s): [ x ] Acute Renal Failure (ARF) / Acute Kidney Failure (RAJEEV) (Please specify associated condition, if applicable) [ ] Acute Tubular Necrosis (ATN) [ x ] Other Etiology or underlying conditions related to the diagnosis of ARF / RAJEEV:Please ask nephrology for expert opinion ] Other diagnosis [ ] Unable to determine For continuity of documentation, please document condition throughout progress notes and discharge summary. Thank You. CLINICAL INDICATORS - SIGNS / SYMPTOMS / LABS BUN: 153 CR: 9.62 GFR: 5 (05/22) 138 8.80 6 (05/23) 115 8.32 6 (05/24) 111 7.81 7 (05/25) H&P DOCUMENTATION 05/22 (JO): ASSESSMENT & PLAN: 1) SEVERE ANEMIA W/ HEMOGLOBIN 2.2 AT [facility], TRANSFUSED 1U PRBC, REPEAT HEMOGLOBIN HERE INHOUSE 4.9; 2) ACUTE KIDNEY INJURY THAT IS SEVERE, CR 9.62, THE PREVIOUS CR THAT WE HAVE ON RECORD HAS BEEN 3 YRS NOW IS 1.0; 3) SEVERE ANION GAP METABOLIC ACIDOSIS LIKELY 2/2 RAJEEV. THE PATIENT REPORTED HAVING A SCANT AMOUNT OF URINE. NEPHROLOGY CONSULT 05/22: ASSESSMENT & PLAN: 1) ACUTE KIDNEY INJURY ON CKD VS CKD. THE PLAN IS TO HYDRATE HER & MONITOR RENAL FUNCTION NEPHROLOGY PN 05/23: RAJEEV ON CKD 3, RENAL FUNCTION W/SLIGHT IMPROVEMENT NEPHROLOGY PN 05/24: RAJEEV ON CKD. RENAL FUNCTION W/SLOW IMPROVEMENT; PROTEINURIA PN 05/23 (CLIFFORD): 1) ACUTE RENAL FAILURE (NOTE: HAD URINE OUTPUT OF 600 ML SINCE ADMISSION) PN 05/24 (CLIFFORD): PLAN: NOT MUCH IMPROVEMENT W/CR BUT HCO3 IS CLOSING; URINE OUTPUT OF 1100 ML/LAST WR HRS, HTN LABILE, WOULD PERFER TO BE HIGHER FOR RENAL PERFUSION; LIKELY WILL NEED TO START HD, STILL MAKING URINE PN 05/25 (CLIFFORD): PLAN: VERY SLOW IMPROVEMENT IN RENAL FUNCTION RISK FACTORS: SEVERE ANEMIA ON ADMIT USE OF NSAIDS DAILY (GI CONSULT 05/23) CKD 3 TREATMENTS: TRANSFUSION 4U PRBC'S (05/22 - 05/23) NEPHROLOGY CONSULT BICARB GTT (05/22 - 05/24) THANK YOU! Ann (This form is maintained as a part of the permanent medical record) 2014 [employer]. All Rights Reserved Ann Tim RN, BSN [email or web address] Office: [phone] [facility]
[2018-05-25 15:53] LABS: ANA Symphony (Qualitative) Negative (Negative); ANA Symphony (Quantitative) Less than 0.07 Ratio (<0.7 Negative); EliA Vaculitis New Method **** NEW METHOD ****; Glomerular Basemt Membrane Ab Less than 1.9 EliAU/mL (<7 Negative); dsDNA IgG Antibody Less than 0.5 IU/mL (<10 Negative)
--- NOTE | 2018-05-25 18:21 | PRG ---
DATE OF SERVICE 05/25/2018 SUBJECTIVE: Patient was seen and examined at bedside and overnight events noted. Patient denies any shortness of breath or chest pain or palpitation. No history of nausea or vomiting or diarrhea or f ever or chills or cramps. OBJECTIVE: GENERAL: This is a well-built female in no apparent distress. VITAL SIGNS: Temperature 98.3, pulse 70, respiratory rate 18, blood pressure 169/78. HEENT: Atraumatic, normocephalic. Oral mucosa is moist. NECK: Supple. CARDIOVASCULAR: S1, S2 heard. Rate and rhythm regular. RESPIRATORY: Clear to auscultation. GASTROINTESTINAL: Abdomen is soft. MUSCULOSKELETAL: No tenderness. No edema. DERMATOLOGIC: No skin rash. NEUROLOGIC: Alert and awake and oriented x3. No focal neurologic deficits. Moving all the extremiti es. PSYCHIATRIC: Mood and affect normal. LABORATORY DATA: Potassium 3.4, BUN 111, creatinine 7.8. ASSESSMENT AND PLAN: 1. Acute kidney injury on chronic kidney disease stage 3. Renal function with slow improvement. Av oid nephrotoxins and we will follow. 2. Edema, controlled. 3. Proteinuria. 4. Hypertension. 5. Anemia, status post-transfusion, chronic anemia. 6. Immunology workup negative. No acute indication for dialysis. We will follow.
--- NOTE | 2018-05-25 19:39 | PRG ---
DATE OF SERVICE: 05/25/2018 SUBJECTIVE: Ms. Peacock has no abdominal pain or nausea. She is tolerating her diet. She has had n o melena or hematochezia. OBJECTIVE: ABDOMEN: Soft, nontender, nondistended. Bowel sounds are present. Her hemoglobin is stable. IMPRESSION: Severe normocytic anemia likely secondary to acute/chronic renal failure and chronic dise ase. RECOMMENDATIONS: Biopsies from the duodenum and stomach were normal. I will sign off for now. Plea se call if GI can be of assistance.
[2018-05-25] MEDS: Artificial Tears 18 DROP/0.9 ML EA EYE PRN (22:19)
[2018-05-26 05:31] LABS: #Eosinphils 0.3 thou/uL (0.0-0.7); #Lymphocytes 1.4 thou/uL (1.20-3.40); #Neutrophils 8.4 thou/uL (1.40-6.50); %Basophils 0.1 % (0.0-1.0); %Eosinophils 2.4 % (0.0-10.0); %Lymphocytes 12.4 % (21.0-51.0); %Monocytes 8.8 % (0.0-10.0); %Neutrophils 76.3 % (42.0-75.0); Hemoglobin 8.8 g/dL (12.0-16.0); Mean Corpuscular HGB CONC 33.5 g/dL (32.0-36.0); Mean Corpuscular Hemoglobin 30.5 pg (27.0-31.0); Mean Corpuscular Volume 91.2 fL (78.0-98.0); Mean Platelet Volume 8.1 fL (7.4-10.4); Platelet Count 196 thou/uL (130-400); RBC Distribution Width 12.2 % (11.5-14.5); Red Blood Cell (RBC) Count 2.89 mill/uL (4.20-5.40)
[2018-05-26 05:46] LABS: Albumin 2.8 g/dL (3.5-5.0); Anion Gap 15 mmol/L (10-20); BUN (Urea Nitrogen) 94 mg/dL (9.8-20.1); BUN/Creatinine Ratio 11.82; Calc. Creatinine Clearance 8 mL/min (70-130); Calcium 8.4 mg/dL (7.8-10.44); Carbon Dioxide 22 mmol/L (22-29); Chloride 100 mmol/L (98-107); Estimated GFR-MDRD 6; Glucose 93 mg/dL (70-105); Phosphorus 5.4 mg/dL (2.3-4.7); Potassium 3.5 mmol/L (3.5-5.1); Sodium 133 mmol/L (136-145)
--- NOTE | 2018-05-26 07:40 | ULT ---
RENAL ULTRASOUND: CLINICAL HISTORY: Renal cyst with a history of renal failure and anemia. FINDINGS: As was depicted on the preceding CT exam 05/23/18, there is evidence of a right renal cyst, which by s onographic imaging corresponds to prior CT hypodensity, and measures approximately 2.4 cm in diameter . There is no overt hydronephrosis involving the kidneys. Each kidney demonstrates echogenicity which may be on the basis of chronic, medical renal disease. There is free fluid of the pelvis of indeterminate etiology and there is also minimal right perinephr ic fluid. IMPRESSION: 1. Right renal cyst. 2. No hydronephrosis. 3. Free fluid of the abdomen and pelvis. Correlate clinically. 4. Increased echogenicity of the kidneys which may be on the basis of medical renal disease. POS: [place]
[2018-05-26] MEDS: hydrALAZINE 25 MG TAB PO SCH ×3 (08:24→21:07)
[2018-05-26] MEDS: NIFEdipine XL 60 MG TAB PO SCH (08:24)
[2018-05-26] MEDS: Ferrous Gluconate 324 MG TAB PO SCH (08:24)
[2018-05-26] MEDS: Acetaminophen 325 MG TAB PO PRN (08:24)
[2018-05-26] MEDS: Ezetimibe 10 MG TAB PO SCH (08:24)
[2018-05-26] MEDS: Atorvastatin Calcium 40 MG TAB PO SCH (08:24)
[2018-05-26] MEDS: Carvedilol 6.25 MG TAB PO SCH ×2 (08:25→17:41)
[2018-05-26] MEDS ORDERED: Heparin 10,000 UNITS/ 10 ML VIAL ONE (09:00)
[2018-05-26 09:48] LABS: INR-International Normal Ratio 1.1; PTT 30.6 SEC (22.9-36.1)
[2018-05-26 09:51] LABS: BHCG - Serum Negative (NEGATIVE); Pregs Control Background? CLEAR/WHITE (CLR/WHITE); Pregs Control Bar Appear? YES (CONTROL BAR)
[2018-05-26 10:04] LABS: CKMB 0.6 ng/mL (0-6.6); Troponin I 0.192 ng/mL (< 0.028)
[2018-05-26] MEDS ORDERED: Naloxone HCl 0.4 mg/ml Vial ONE ×2 (10:46→10:56)
[2018-05-26] MEDS ORDERED: Naloxone HCl 0.4 mg/ml Vial IV PRN (11:09)
--- NOTE | 2018-05-26 11:49 | MRI ---
MRI BRAIN WITHOUT CONTRAST: Date: 05/26/18 HISTORY: Stroke. FINDINGS: No restricted diffusion is seen. No evidence of infarct, hemorrhage, midline shift, or abnormal extra -axial fluid collections are seen. Multiple foci of T2 prolongation in the periventricular white óscar er are consistent with chronic small vessel ischemic disease. There is mild mucosal disease in the pa ranasal sinuses. There is a small amount of fluid in the mastoid air cells. IMPRESSION: 1. No evidence of acute intracranial process. 2. Chronic small vessel ischemic disease. POS: [facility]
[2018-05-26 12:17] LABS: Acetaminophen Less than 6.0 mcg/mL (10.0-30.0); Alcohol Less than 10 mg/dL (Less than 10); Salicylate Less than 8.0 mg/dL (15.0-30.0)
--- NOTE | 2018-05-26 12:29 | PDOC.PN ---
- Subjective Encounter Start Date: 05/26/18 Encounter Start Time: 11:00 Subjective: herbert doe was called this am around 9.15am for unresponsiveness -: awake but does not respond to verbal stimuli initially -: is moving all extremities although sluggishly - Objective Resuscitation Status: Resuscitation Status FULL:Full Resuscitation MAR Reviewed: Yes Vital Signs & Weight: Vital Signs (12 hours) Temp Pulse Resp BP Pulse Ox 05/26/18 07:00 98.8 F 86 17 154/81 H 95 05/26/18 04:00 98.5 F 83 16 159/88 H 95 Weight Admit Weight 128 lb 11.2 oz Weight 136 lb 4.8 oz I&O: 05/25/18 05/26/18 05/27/18 06:59 06:59 06:59 Intake Total 480 3810 Output Total 700 Balance 480 3110 Result Diagrams: 05/26/18 04:49 05/26/18 04:49 Additional Labs: Accuchecks 05/26/18 05/26/18 05/25/18 09:24 05:53 20:37 POC Glucose 132 H 115 H 136 H 05/25/18 16:17 POC Glucose 130 H Phys Exam - Physical Examination HEENT: sclera anicteric pupils are 3 mm and sluggish, dry mucosa, no food or meds in mouth Neck: no JVD, supple Respiratory: no wheezing, no rales Cardiovascular: RRR, no significant murmur Gastrointestinal: soft, non-tender, positive bowel sounds Musculoskeletal: no edema, pulses present Neurological: non-focal, moves all 4 limbs encephalopathic, hyperreflexia++, down going plantars, no clonus Dx/Plan (1) Acute metabolic encephalopathy Code(s): G93.41 - METABOLIC ENCEPHALOPATHY Status: Acute (2) Overdose Code(s): T50.901A - POISONING BY UNSP DRUG/MEDS/BIOL SUBST, ACCIDENTAL, INIT Status: Acute Comment: suspected hydrocodone OD (3) Acute renal failure Status: Acute Qualifiers: Acute renal failure type: unspecified Qualified Code(s): N17.9 - Acute kidney failure, unspecified (4) Metabolic acidosis Code(s): E87.2 - ACIDOSIS Status: Acute Comment: resolving (5) Severe anemia Code(s): D64.9 - ANEMIA, UNSPECIFIED Status: Acute Comment: initial Hb 2.2g , s/p 4 u prbc's (6) Demand ischemia of myocardium Code(s): I24.8 - OTHER FORMS OF ACUTE ISCHEMIC HEART DISEASE Status: Acute (7) CAD (coronary artery disease) Code(s): I25.10 - ATHSCL HEART DISEASE OF [place] CORONARY ARTERY W/O ANG PCTRS Status: Chronic Qualifiers: Coronary Disease-Associated Artery/Lesion type: [place] artery [place] vs. transplanted heart: [place] heart Associated angina: without angina Qualified Code(s): I25.10 - Atherosclerotic heart disease of [place] coronary artery without angina pectoris Comment: prior h/o 4 stents placed by (8) HTN (hypertension) Code(s): I10 - ESSENTIAL (PRIMARY) HYPERTENSION Status: Chronic Qualifiers: Hypertension type: essential hypertension Qualified Code(s): I10 - Essential (primary) hypertension (9) Dyslipidemia Code(s): E78.5 - HYPERLIPIDEMIA, UNSPECIFIED Status: Chronic (10) COPD (chronic obstructive pulmonary disease) Status: Suspected - Plan MRI results noted no cva -: had response to narcan x2 doses with patient becoming more awake and respon -: -ding to verbal stimuli a bit, she is seen moving all extremities -: d/w , ng tube, suction out stomach contents, give 50g act charcoal -: d/w Vasudev, will start HD today * . Hydrocodone and tylenol have minimal clearance with HD Again its unclear how many tabs did pt swallow, she is still encephalopathic/ groggy At baseline pt has stuttering speech. Floor of mouth was swept with my fingers, no obvious meds or food stuck in oropharynx. Not sure if she is postictal, ?hyperreflexia sec to uremia. Will update son later today. May use ng tube for htn meds, no suction needed after initial stomach content evacuation. Likely has hypertensive nephrosclerosis, autoimmune disease is r/o with labs. Will f/u. Had MRA done without gadolinium using hydrogen ion dispersion, will f/u results. Review of Systems - Medications/Allergies Allergies/Adverse Reactions: Allergies Allergy/AdvReac Type Severity Reaction Status Date / Time No Known Allergies Allergy Verified 05/22/18 22:53 Medications: Current Medications Acetaminophen (Tylenol) 650 mg PO Q4H PRN PRN Reason: Headache/Fever or Pain Last Admin: 05/26/18 08:24 Dose: 650 mg Albuterol Sulfate (Proventil Hfa) 3 puff INH PRN PRN PRN Reason: Wheezing Artificial Tears (Tears Naturale) 1 drop EA EYE PRN PRN PRN Reason: DRY EYES Last Admin: 05/25/18 22:19 Dose: 1 drop Atorvastatin Calcium (Lipitor) 40 mg PO DAILY [facility] Last Admin: 05/26/18 08:24 Dose: 40 mg Carvedilol (Coreg) 12.5 mg PO BID-[facility] Last Admin: 05/26/18 08:25 Dose: 12.5 mg Charcoal (Actidose-Aqua) 50 gm PO ONE STA Stop: 05/26/18 12:26 Clonidine (Catapres) 0.1 mg PO Q4H PRN PRN Reason: BP>180/100 Last Admin: 05/25/18 06:08 Dose: 0.1 mg Dextrose/Water (Dextrose 50%) 25 gm SLOW IVP PRN PRN PRN Reason: Hypoglycemia Ezetimibe (Zetia) 10 mg PO DAILY [facility] Last Admin: 05/26/18 08:24 Dose: 10 mg Ferrous Gluconate (Fergon) 324 mg PO QAM-[facility] Last Admin: 05/26/18 08:24 Dose: 324 mg Glucagon (Glucagon) 1 mg IM PRN PRN PRN Reason: Hypoglycemia Hydralazine HCl (Apresoline) 50 mg PO TID [facility] Last Admin: 05/26/18 08:24 Dose: 50 mg Dextrose/Water (D5w) 1,000 mls @ 0 mls/hr IV .Q0M PRN PRN Reason: Hypoglycemia Lactated Ringer's (Lactated Ringer's) 1,000 mls @ 75 mls/hr IV .[id number] [facility] Last Admin: 05/25/18 23:41 Dose: 1,000 mls Naloxone HCl 2 mg/Miscellaneous Medication 1 each/ Sodium Chloride 505 mls @ 0 mls/hr IV INF PRN; Protocol PRN Reason: OVER SEDATION Insulin Human Lispro (Humalog) 0 units SC .MILD SLIDING SCALE PRN PRN Reason: Mild Correctional Scale Naloxone HCl (Narcan) 0.4 mg IV PRN PRN PRN Reason: respiratory depression Nifedipine (Procardia Xl) 60 mg PO DAILY [facility] Last Admin: 05/26/18 08:24 Dose: 60 mg Ondansetron HCl (Zofran) 4 mg IVP Q6H PRN PRN Reason: Nausea/Vomiting Pantoprazole Sodium (Protonix) 40 mg PO DAILY [facility] Last Admin: 05/26/18 08:24 Dose: 40 mg Sodium Chloride (Flush - Normal Saline) 10 ml IVF Q12HR [facility] Last Admin: 05/26/18 08:25 Dose: Not Given Sodium Chloride (Flush - Normal Saline) 10 ml IVF PRN PRN PRN Reason: Saline Flush
[2018-05-26] MEDS: Naloxone HCl 2 MG, Admixture Fee 1 EACH in Sodium Chloride 0.9% 500 ML IV PRN ×3 (12:41→22:30)
--- NOTE | 2018-05-26 13:19 | MRI ---
MR ANGIOGRAM OF REJI: Date: 05/26/18 HISTORY: Code Green. COMPARISON: None. TECHNIQUE: MR angiogram of the [place] is performed in the axial plane. Three-dimensional reformatted i mages are submitted for interpretation. FINDINGS: There is symmetric flow-related signal in the distal cervical and intracranial internal carotid arter ies. Anterior Circulation: Symmetric flow-related signal in the A1 and M1 segments. Proximal A2 segments and proximal MCA branches have appropriate flow-related signal. Posterior Circulation: Both distal cervical and intracranial vertebral arteries have appropriate thelma w-related signal. The left and right PICA artery origins are unremarkable. Both PICA arteries supply a normal appearing basilar artery. There is appropriate flow-related signal. The left and right P1 se gments have symmetric flow-related signal. IMPRESSION: Unremarkable MR angiogram of the [place]. POS: [place]
--- NOTE | 2018-05-26 14:06 | OP ---
DATE OF OPERATION: 05/26/2018 PREOPERATIVE DIAGNOSES: End-stage renal disease. Self-medication home medication overdose this morn ing. NG tube for activated charcoal, severe anemia, corrected with transfusions, noncompliance on me dications. PROCEDURE: Placement of right femoral vein Trialysis catheter. Ultrasound directed placement of lef t IJ triple lumen catheter. SURGEON: Dr. Balaji Estevez. ANESTHESIA: 1% Xylocaine. FINDINGS: The right femoral vein dialysis catheter would not thread all the way in, but seemed to block ve good flow. It was sutured with approximately 4 inches of the catheter out. PROCEDURE: At the patient bedside, the patient's right groin was prepared with ChloraPrep, draped in routine fashion. 1% Xylocaine infiltrated into skin and subcutaneous tissue. Trocar catheter cannu lated the femoral vein. J-wire threaded. Trocar catheter removed. Skin incised and enlarged sharpl y. Smaller and medium sized dilators placed over the J-wire into the femoral vein removed. Distal p ort of the triple-lumen placed, but it would not thread all the way in, thus it was sutured at a poin t where it had good blood flow and sterile dressing was applied. Each port aspirated blood and flush ed with saline solution and Dialysis called. Left side of the neck prepared with ChloraPrep, draped in routine fashion. Local anesthetic infiltra rm into skin and subcutaneous tissue. Sterile technique used to cannulate the left internal jugular vein using ultrasound guidance and J-wire threaded. Trocar catheter removed. Skin incised and enla rged sharply. Seldinger technique used to place a triple lumen catheter securing it with 3-0 silk brice tures. Sterile dressing applied. J-wire removed. Each port aspirated blood and flushed with saline solution. X-ray called for and noted the line to be in good position.
[2018-05-26] MEDS: Lactated Ringer's 1,000 ML IV SCH (14:32)
--- NOTE | 2018-05-26 14:34 | HP ---
Jyoti Peacock is a 53-year-old black female with diabetes, hypertension, coronary artery disease, admitted on 05/23/2018, noted to have a hemoglobin of 2, transfused blood. Dr. Silvino Tong saw he r in consultation. She was admitted for dyspnea, malaise. Dr. Tuan Calvillo on 05/24/2018 performed EG D noting mild erosive enteritis. No esophagogastroduodenoscopy otherwise. Patient's hemoglobin is n ow 8.8. She has a GFR of 6. I have been asked by Dr. Toussaint to place a cuffed tunnel dialysis cath eter and a fistula. The patient is noted to have chronic kidney disease since records have been avai lable at this facility. Patient this morning, took an abundance of her home medications and has had NG tube placed for activated charcoal, has been given Narcan and mental status has improved. It is s uspected that she took narcotic analgesics. ALLERGIES: None known. TOBACCO: None. ALCOHOL: None. OUTPATIENT MEDICATIONS: Hydralazine 50 t.i.d., clonidine 0.2 mg at bedtime, ramipril 7 mg daily, Pro tonix 40 mg daily, naproxen 375 mg daily, hydrocodone 10/325 as needed for pain, gabapentin 400 mg da juan miguel, ezetimibe 40 mg daily, Plavix 75 mg daily, Coreg 25 mg b.i.d., baclofen 20 mg daily, atorvastati n 80 mg daily, aspirin 81 mg daily, amlodipine 10 mg daily, Albuterol inhalers as needed. PAST SURGICAL HISTORY: I performed laparoscopic cholecystectomy last year for cholecystitis and chol elithiasis, ectopic , hysterectomy, cardiac catheterization in 2009. Cardiac stents placed. Dr. Dos Santos saw her on 09/13/2014. She was noted during his evaluation, information 2009, myocard ial infarction, life flighted to [facility] and had a stent placed for total occlusi on per her records, but Dr. Dos Santos reviewed the true records and found that she had a 50% lesion in the obtuse marginal branch, but no other significant coronary artery disease. She had a hyperdynami c LV with ejection fraction of greater than 70% on March 2010. It was felt that she had severe hype rtension with LVH, hypercholesterolemia as well as renal insufficiency. She is seen again in 2011 in [place], possibly had a cardiac event and she was transferred life flight to [facility]. DC wa s ruled out. Lexiscan testing was negative for ischemia. The patient had Lexiscan repeated again. Cardiolite revealed mild inferior lateral ischemia, proximal distal inferior wall hypokinesis, decrea sed myocardial thickening, catheterization was repeated. Cardiac clearance obtained, and laparoscopi c cholecystectomy subsequently performed after a period of time to have better control of her blood p ressure. She did well after the operation. In this hospitalization, the patient also underwent abdo shalini pelvic CAT scan on 05/23/2018. She was found to have mild anasarca, mild ascites, stable right renal cyst. No other remarkable findings. PHYSICAL EXAMINATION: VITAL SIGNS: 5 feet 8 inches, 136 pounds, 28 BMI. The patient has an NG tube in place. GENERAL: S he is conversive and appropriately oriented, 98 degrees, 86, 154/81. Head, Eyes, Ears, Nose, and Throat: Unremarkable. LUNGS: Clear to auscultation. CARDIAC: Regular rate and rhythm without murmur or gallop. ABDOMEN: Soft, nontender. EXTREMITIES: Unremarkable. The patient has IVs in both mid forearms. ASSESSMENT AND PLAN: 1. End-stage renal disease, chronic kidney disease. Plan placement of a trialysis catheter today to enable dialysis today in the morning and plan placement of a cuffed tunnel hemodialysis catheter rob orrow. In addition, we will obtain ultrasound and vein mapping in both arms. I have removed her IVs . We will plan placement of central line. In addition, left IJ. We will protect her veins and plan a primary AV fistula tomorrow, left or right arm pending vein mapping. 2. Hypertension. 3. Diabetes mellitus. 4. Severe hypertension. 5. No history of coronary stents, followed by Dr. Dos Santos. Problems have been mainly related to se jaja hypertension.
[2018-05-26 15:09] LABS: Amphetamine Not Detected (NotDetected); Barbiturates Screen Not Detected (NotDetected); Benzodiazepine Screen Not Detected (NotDetected); Cocaine Metabolite Screen Not Detected (NotDetected); Medtox Control Line Valid? VALID (VALID); Medtox Reader # READER 1; Methadone Not Detected (NotDetected); Methamphetamine Not Detected (NotDetected); Opiate Screen Not Detected (NotDetected); Oxycodone Screen Not Detected (NotDetected); Phencyclidine (PCP) Not Detected (NotDetected); THC/Cannabinoid Screen Not Detected (NotDetected); Tricyclic Screen Not Detected (NotDetected)
[2018-05-26] MEDS ORDERED: Tuberculin PPD 0.1 ML VIAL I-DERMAL SCH (17:00)
--- NOTE | 2018-05-26 17:09 | RAD ---
CHEST ONE VIEW: 05/26/18 HISTORY: Chest congestion. Central line placement. COMPARISON: 05/23/18. FINDINGS: Nasogastric tube extends beyond the diaphragm. Distal tip is not seen. Left sided internal jugular ce ntral venous catheter terminates in the right atrium. No pneumothorax. Enlarged cardiac silhouette. The pulmonary vessels are slightly prominent. Patchy reticulonodular opa cities. No consolidation in the right lung. There is obscuration of the left hemidiaphragm and descen ding thoracic aorta. Left lower lobe infiltrate is suspected. IMPRESSION: 1. Left lower lobe infiltrate. 2. Cardiomegaly with pulmonary vascular predominance and reticulonodular opacities. Correlate fo r volume overload. 3. Left sided central venous catheter with the distal tip projecting over the right atrium. No pneumothorax. POS: [facility]
--- NOTE | 2018-05-26 18:03 | PRG ---
DATE OF SERVICE: 05/26/2018 SUBJECTIVE: Patient was seen and examined at bedside and overnight events noted. Patient denies any shortness of breath or chest pain or palpitation. No history of nausea or vomiting or diarrhea or f ever or chills or cramps. The patient had an eventful morning. This morning, she had a stroke alert and she has had MRI and also is concerned to have a narcotic overdose and we treated. She was trans ferred to ICU and she is not responsive very well this morning. OBJECTIVE: GENERAL: This is a well-built -Portuguese female in moderate distress. VITAL SIGNS: Temperature 98, pulse , blood pressure 154/81. HEENT: Atraumatic, normocephalic. Oral mucosa is moist. NECK: Supple. CARDIOVASCULAR: S1, S2 heard. Rate and rhythm regular. RESPIRATORY: Clear. GASTROINTESTINAL: Abdomen is soft. MUSCULOSKELETAL: 1+ edema. DERMATOLOGIC: No skin rash. NEUROLOGIC: Alert and awake. Not really responsive. PSYCHIATRIC: Mood and affect normal. LABORATORY DATA: Hemoglobin is 8.8, potassium is 3.5, BUN 94 and creatinine 7.9. ASSESSMENT AND PLAN: 1. End-stage renal disease. Renal function not getting better. Renal ultrasound with chronic kidne y disease, most likely end-stage renal disease. We will plan to start on dialysis. Family and patie nt is agreeable. We will consult surgery for access placement and will consult case management for o utpatient dialysis. 2. Edema, controlled. 3. Proteinuria, most likely from hypertension. 4. Hypertension, getting better. 5. Anemia. We will add Epogen with dialysis. 6. We will start on dialysis. Follow case management for outpatient placement.
[2018-05-26 18:18] LABS: Acetaminophen Less than 6.0 mcg/mL (10.0-30.0)
--- NOTE | 2018-05-26 18:31 | ULT ---
VEIN MAPPING OF UPPER EXTREMITIES FOR DIALYSIS ACCESS: 05/26/18 HISTORY: End-stage renal disease. COMPARISON: None. TECHNIQUE: Calvillo scale, color flow, doppler imaging and spectral waveform analysis performed of the upper extremi ty arterial venous system. RIGHT UPPER EXTREMITY BRACHIAL ARTERY: 5.1 mm RADIAL ARTERY: 2.9 mm ULNAR ARTERY: 1.7 mm CEPHALIC VEIN Proximal Humerus: 0.4 mm Mid Humerus: 0.4 mm Distal Humerus: 0.5 mm Antecubital Fossa: 1.2 mm Proximal Forearm: 1.1 mm Mid Forearm: 0.5 mm Distal Forearm: 0.6 mm BASILIC VEIN Proximal Humerus: 1.0 mm Mid Humerus: 1.5 mm Distal Humerus: 1.3 mm Antecubital Fossa: 1.8 mm Proximal Forearm: 1.4 mm Mid Forearm: 1.1 mm Distal Forearm: 1.0 mm LEFT UPPER EXTREMITY BRACHIAL ARTERY: 4.8 mm RADIAL ARTERY: 2.9 mm ULNAR ARTERY: 1.4 mm CEPHALIC VEIN Proximal Humerus: 0.6 mm Mid Humerus: 0.8 mm Distal Humerus: 1.0 mm Antecubital Fossa: 1.4 mm Proximal Forearm: 0.6 mm Mid Forearm: 0.7 mm Distal Forearm: 0.5 mm BASILIC VEIN Proximal Humerus: 1.6 mm Mid Humerus: 1.1 mm Distal Humerus: 0.8 mm Antecubital Fossa: 1.1 mm Proximal Forearm: 1.0 mm Mid Forearm: 0.5 mm Distal Forearm: 0.5 mm IMPRESSION: Venous mapping as above. POS: [facility]
[2018-05-26] MEDS ORDERED: hydrALAZINE 20 MG/ML VIAL SLOW IVP PRN (18:36)
[2018-05-26] MEDS ORDERED: Nitroglycerin 2% Ointment 1 INCH/1 GM Packet TOP SCH (18:45)
[2018-05-26] MEDS ORDERED: cloNIDine 0.2mg/24 Hour PATCH TD SCH (20:00)
[2018-05-26] MEDS: Nitroglycerin 2% Ointment 1 INCH/1 GM Packet TOP SCH (21:07)
[2018-05-27 01:16] LABS: #Eosinphils 0.1 thou/uL (0.0-0.7); #Neutrophils 8.8 thou/uL (1.40-6.50); %Basophils 0.3 % (0.0-1.0); %Eosinophils 1.3 % (0.0-10.0); %Lymphocytes 8.7 % (21.0-51.0); %Monocytes 9.4 % (0.0-10.0); %Neutrophils 80.4 % (42.0-75.0); Hemoglobin 8.4 g/dL (12.0-16.0); Mean Corpuscular HGB CONC 33.2 g/dL (32.0-36.0); Mean Corpuscular Hemoglobin 30.6 pg (27.0-31.0); Mean Corpuscular Volume 91.9 fL (78.0-98.0); Mean Platelet Volume 7.5 fL (7.4-10.4); Platelet Count 198 thou/uL (130-400); RBC Distribution Width 12.4 % (11.5-14.5); Red Blood Cell (RBC) Count 2.75 mill/uL (4.20-5.40)
[2018-05-27 01:30] LABS: Acetaminophen Less than 6.0 mcg/mL (10.0-30.0)
[2018-05-27 01:38] LABS: Albumin 2.6 g/dL (3.5-5.0); Anion Gap 15 mmol/L (10-20); BUN (Urea Nitrogen) 57 mg/dL (9.8-20.1); BUN/Creatinine Ratio 10.54; Calc. Creatinine Clearance 12 mL/min (70-130); Carbon Dioxide 22 mmol/L (22-29); Chloride 106 mmol/L (98-107); Estimated GFR-MDRD 10; Glucose 94 mg/dL (70-105); Phosphorus 4.2 mg/dL (2.3-4.7); Potassium 3.5 mmol/L (3.5-5.1); Sodium 139 mmol/L (136-145)
--- NOTE | 2018-05-27 02:40 | CON ---
DATE OF CONSULTATION: 05/26/2018 HISTORY OF PRESENT ILLNESS: Ms. Peacock is a 53-year-old female that has been here for several days. Apparently, this morning she became unresponsive. She was transferred to the IMU and then transferred to the Critical Care Unit after a brain MRA. She apparently received Narcan for unresponsiveness and pinpoint [id number] and awaken. She apparently had opiates in her purse and the bottle was empty and it is felt that she took a large quantity of these. She has been transferred to the unit and NG tube was placed to suction and she was placed on a Narcan drip. She is much more alert. Her drug screen; however, done at 1300 hours was negative. PAST MEDICAL HISTORY: 1. Diabetes. 2. Hypertension. 3. Coronary artery disease. PAST SURGICAL HISTORY: 1. Coronary stenting. 2. History of cholecystectomy. 3. History of hysterectomy. FAMILY HISTORY: Family history of cancer and tuberculosis. SOCIAL HISTORY: She smokes marijuana. She is not a smoker of tobacco or a drinker. ALLERGIES: She has no drug allergies. REVIEW OF SYSTEMS: Ten-point review of system completed, unreliable. PHYSICAL EXAMINATION: GENERAL: She is afebrile, VITALS: heart rate 88, blood pressure is 169/70, she is 97% on room air. HEENT: Pupils are equal, but small. Sclerae is anicteric. NECK: Supple. LUNGS: Clear. HEART: Regular rhythm. ABDOMEN: Soft and nontender. EXTREMITIES: Without clubbing, cyanosis or edema. IMPRESSION: Transient encephalopathy of unclear etiology. Electrolytes are unremarkable. CBC is unremarkable and unchanged compared to yesterday. MRA showed nothing. MRI of her brain showed small vessel ischemic changes. With her response to Narcan, it would appear that she had an opiate ingestion, but then a negative drug screen, makes that questionable. Drug screens are not perfect just like any test and medicine there is not an absolute 100% positive predictive value or negative predictive value. We will continue to treat her for an inadvertent self-inflicted opiate overdose. She eventually did tell one of the nurses that she took pills out of her purse. She appears to be stable throughout the afternoon. Critical care time was 30 minutes. [facility]USGhazal
[2018-05-27] MEDS: Nitroglycerin 2% Ointment 1 INCH/1 GM Packet TOP SCH ×2 (05:29→12:04)
[2018-05-27] MEDS: Carvedilol 6.25 MG TAB PO SCH ×2 (08:00→16:16)
[2018-05-27] MEDS: Ferrous Gluconate 324 MG TAB PO SCH (08:00)
[2018-05-27] MEDS: cloNIDine 0.1 MG TAB PO PRN (08:01)
[2018-05-27] MEDS: hydrALAZINE 25 MG TAB PO SCH ×3 (08:01→21:47)
[2018-05-27] MEDS: NIFEdipine XL 60 MG TAB PO SCH (08:01)
[2018-05-27 08:02] LABS: Acetaminophen Less than 6.0 mcg/mL (10.0-30.0)
[2018-05-27] MEDS ORDERED: Epoetin (NON-ESRD) 10,000 UNITS/ML VIAL IVP SCH (09:00)
[2018-05-27] MEDS: Atorvastatin Calcium 40 MG TAB PO SCH (10:13)
[2018-05-27] MEDS: Ezetimibe 10 MG TAB PO SCH (10:14)
--- NOTE | 2018-05-27 10:47 | PRG ---
DATE OF SERVICE: 05/27/2018 Ms. Peacock is much more alert today. PHYSICAL EXAMINATION: VITAL SIGNS: Blood pressure 164/92, heart rate 88, respiratory rate 16, oximetry 99. She is off Steven can drip last night. LUNGS: Lungs are clear. HEART: Regular rhythm. ABDOMEN: Soft. LABORATORY DATA: White count is 11, hemoglobin 8.4, platelets 198. Creatinine is down to 5.4. Potassium is 3.5. Intake and output is positive 678. She had 950 mL of urine out apparently. She is tentatively on the schedule for a dialysis catheter. She appears to be medically stable. It appears that her renal function is improving. We will continue to follow her while she is in the ICU .
[2018-05-27 12:17] LABS: Acetaminophen Less than 6.0 mcg/mL (10.0-30.0)
--- NOTE | 2018-05-27 13:14 | PDOC.PN ---
- Subjective Encounter Start Date: 05/27/18 Encounter Start Time: 11:50 Subjective: awake, moves all extremities -: can see well, follows verbal stimuli -: is npo for likely fistula/HD access today - Objective Resuscitation Status: Resuscitation Status FULL:Full Resuscitation MAR Reviewed: Yes Vital Signs & Weight: Vital Signs (12 hours) Temp Pulse BP Pulse Ox 05/27/18 11:00 98 05/27/18 08:01 94 170/91 H 05/27/18 08:00 99.4 F 170/91 H 05/27/18 05:28 94 170/91 H 05/27/18 04:00 99.0 F Weight Admit Weight 128 lb 11.2 oz Weight 145 lb 11.609 oz Most Recent Monitor Data Heart Rate from ECG 88 NIBP 164/92 NIBP BP-Mean 107 Respiration from ECG 16 SpO2 99 I&O: 05/26/18 05/27/18 05/28/18 06:59 06:59 06:59 Intake Total 3810 2813 50 Output Total 700 2135 350 Balance 3110 678 -300 Result Diagrams: 05/27/18 01:05 05/27/18 01:05 Additional Labs: Accuchecks 05/27/18 05/27/18 05/26/18 08:15 00:59 17:26 POC Glucose 95 100 105 Phys Exam - Physical Examination HEENT: moist MMs pupils are 1mm but reacting with no visual disturbances Neck: no JVD, supple Respiratory: no wheezing, no rales Cardiovascular: RRR, no significant murmur Gastrointestinal: soft, non-tender, positive bowel sounds Musculoskeletal: no edema, pulses present femoral trialysis cath+ Neurological: non-focal, moves all 4 limbs Psychiatric: A&O x 3 Dx/Plan (1) Acute metabolic encephalopathy Code(s): G93.41 - METABOLIC ENCEPHALOPATHY Status: Resolved (2) Overdose Code(s): T50.901A - POISONING BY UNSP DRUG/MEDS/BIOL SUBST, ACCIDENTAL, INIT Status: Suspected Comment: suspected hydrocodone OD (3) Acute renal failure Status: Acute Qualifiers: Acute renal failure type: unspecified Qualified Code(s): N17.9 - Acute kidney failure, unspecified (4) Metabolic acidosis Code(s): E87.2 - ACIDOSIS Status: Acute Comment: resolving (5) Severe anemia Code(s): D64.9 - ANEMIA, UNSPECIFIED Status: Acute Comment: initial Hb 2.2g , s/p 4 u prbc's (6) Demand ischemia of myocardium Code(s): I24.8 - OTHER FORMS OF ACUTE ISCHEMIC HEART DISEASE Status: Acute (7) CAD (coronary artery disease) Code(s): I25.10 - ATHSCL HEART DISEASE OF [place] CORONARY ARTERY W/O ANG PCTRS Status: Chronic Qualifiers: Coronary Disease-Associated Artery/Lesion type: [place] artery [place] vs. transplanted heart: [place] heart Associated angina: without angina Qualified Code(s): I25.10 - Atherosclerotic heart disease of [place] coronary artery without angina pectoris Comment: prior h/o 4 stents placed by (8) HTN (hypertension) Code(s): I10 - ESSENTIAL (PRIMARY) HYPERTENSION Status: Chronic Qualifiers: Hypertension type: essential hypertension Qualified Code(s): I10 - Essential (primary) hypertension (9) Dyslipidemia Code(s): E78.5 - HYPERLIPIDEMIA, UNSPECIFIED Status: Chronic (10) COPD (chronic obstructive pulmonary disease) Status: Chronic - Plan will add aspirin to current meds -: on procardia, coreg, hydralazine, clonidine prn -: htn is stable with sbp around 130-160's at times -: may tx to telemetry -: PT to ambulate as tolerated, will need placement * . Review of Systems - Medications/Allergies Allergies/Adverse Reactions: Allergies Allergy/AdvReac Type Severity Reaction Status Date / Time No Known Allergies Allergy Verified 05/22/18 22:53 Medications: Current Medications Acetaminophen (Tylenol) 650 mg PO Q4H PRN PRN Reason: Headache/Fever or Pain Last Admin: 05/26/18 08:24 Dose: 650 mg Albuterol Sulfate (Proventil Hfa) 3 puff INH PRN PRN PRN Reason: Wheezing Artificial Tears (Tears Naturale) 1 drop EA EYE PRN PRN PRN Reason: DRY EYES Last Admin: 05/25/18 22:19 Dose: 1 drop Atorvastatin Calcium (Lipitor) 40 mg PO DAILY [facility] Last Admin: 05/27/18 10:13 Dose: 40 mg Carvedilol (Coreg) 12.5 mg PO BID-[facility] Last Admin: 05/27/18 08:00 Dose: 12.5 mg Clonidine (Catapres) 0.1 mg PO Q4H PRN PRN Reason: BP>180/100 Last Admin: 05/27/18 08:01 Dose: 0.1 mg Clonidine (Ktpgnydb-Rpu-2) 0.2 mg TD Th@2000 [facility] Last Admin: 05/26/18 20:15 Dose: 0.2 mg Dextrose/Water (Dextrose 50%) 25 gm SLOW IVP PRN PRN PRN Reason: Hypoglycemia Ezetimibe (Zetia) 10 mg PO DAILY [facility] Last Admin: 05/27/18 10:14 Dose: 10 mg Epoetin Alex (Procrit) 10,000 units IVP MoWeFr@0900 [facility] Last Admin: 05/27/18 12:02 Dose: 10,000 units Ferrous Gluconate (Fergon) 324 mg PO QAM-[facility] Last Admin: 05/27/18 08:00 Dose: Not Given Glucagon (Glucagon) 1 mg IM PRN PRN PRN Reason: Hypoglycemia Hydralazine HCl (Apresoline) 50 mg PO TID [facility] Last Admin: 05/27/18 08:01 Dose: 50 mg Hydralazine HCl (Apresoline) 20 mg SLOW IVP Q6H PRN PRN Reason: SBP Greater Than 170 Last Admin: 05/27/18 05:28 Dose: 20 mg Dextrose/Water (D5w) 1,000 mls @ 0 mls/hr IV .Q0M PRN PRN Reason: Hypoglycemia Naloxone HCl 2 mg/Miscellaneous Medication 1 each/ Sodium Chloride 505 mls @ 0 mls/hr IV INF PRN; Protocol PRN Reason: OVER SEDATION Last Admin: 05/26/18 22:30 Dose: 505 mls Insulin Human Lispro (Humalog) 0 units SC .MILD SLIDING SCALE PRN PRN Reason: Mild Correctional Scale Naloxone HCl (Narcan) 0.4 mg IV PRN PRN PRN Reason: respiratory depression Nifedipine (Procardia Xl) 60 mg PO DAILY [facility] Last Admin: 05/27/18 08:01 Dose: 60 mg Nitroglycerin (Nitro-Bid 2% Ointment) 1 inch TOP Q6HR [facility] Last Admin: 05/27/18 12:04 Dose: 1 inch Ondansetron HCl (Zofran) 4 mg IVP Q6H PRN PRN Reason: Nausea/Vomiting Pantoprazole Sodium (Protonix) 40 mg PO DAILY [facility] Last Admin: 05/27/18 10:13 Dose: 40 mg Sodium Chloride (Flush - Normal Saline) 10 ml IVF Q12HR [facility] Last Admin: 05/27/18 12:02 Dose: 10 ml Sodium Chloride (Flush - Normal Saline) 10 ml IVF PRN PRN PRN Reason: Saline Flush Tuberculin PPD (Aplisol) 0.1 ml I-DERMAL ONE [facility] Stop: 05/29/18 17:01 Last Admin: 05/26/18 21:11 Dose: 0.1 each
[2018-05-27] MEDS ORDERED: Lidocaine 2% PF Inj 2 ML VIAL ONE (16:57)
[2018-05-27] MEDS ORDERED: Heparin 10,000 UNITS/1 ML VIAL ONE (16:57)
[2018-05-27] MEDS ORDERED: Bupivacaine HCl 0.5%/Epinephrine 1:200,000/PF 30 ml Vial ONE (16:57)
[2018-05-27] MEDS ORDERED: Sodium Chloride 0.9% 30 ML ONE (16:57)
[2018-05-27 17:14] LABS: Cytoplasmic (C-ANCA) <1:20 titer (Neg:<1:20); Myeloperoxidase AutoAbs <9.0 U/mL (0.0-9.0); Perinuclear (P-ANCA) <1:20 titer (Neg:<1:20); Proteinase-3 AutoAbs Less than 3.5 U/mL (0.0-3.5)
--- NOTE | 2018-05-27 17:23 | PRG ---
DATE OF SERVICE: 05/27/2018 SUBJECTIVE: Patient was seen and examined at bedside and overnight events noted. Patient denies any shortness of breath or chest pain or palpitation. No history of nausea or vomiting or diarrhea or f ever or chills or cramps. OBJECTIVE: GENERAL: This is a well-built female in no apparent distress. VITAL SIGNS: Temperature 98.6, pulse 97, respiratory rate 18, blood pressure 153/85. HEENT: Atraumatic, normocephalic. Oral mucosa is moist. NECK: Supple. CARDIOVASCULAR: S1, S2 heard. Rate and rhythm regular. RESPIRATORY: Clear to auscultation. GASTROINTESTINAL: Abdomen is soft. MUSCULOSKELETAL: No tenderness. No edema. DERMATOLOGIC: No skin rash. NEUROLOGIC: Confused. PSYCHIATRIC: Mood and affect normal. LABORATORY DATA: Potassium is 3.5, BUN 57, creatinine is 5.4. ASSESSMENT AND PLAN: 1. End-stage renal disease on hemodialysis. Plan is to continue dialysis. 2. Edema, controlled. 3. Proteinuria. 4. Hypertension. Plan is to continue on dialysis as tolerated.
[2018-05-27] MEDS ORDERED: Fentanyl 100 MCG/2 ML VIAL ONE ×2 (17:55→18:27)
[2018-05-27] MEDS ORDERED: Propofol 500 MG/50 ML VIAL ONE (17:55)
[2018-05-27] MEDS ORDERED: Midazolam HCl 2 mg/2 ml Vial ONE (17:55)
[2018-05-27] MEDS ORDERED: HYDROmorphone 2 MG/ML VIAL SLOW IVP PRN (18:27)
[2018-05-27] MEDS ORDERED: Ondansetron HCl/PF 4 MG/2 ML Vial IVP PRN (18:27)
[2018-05-27] MEDS ORDERED: Ondansetron HCl/PF 4 MG/2 ML Vial ONE (18:28)
--- NOTE | 2018-05-27 18:48 | RAD ---
FRONTAL RADIOGRAPH CHEST 05/27/18 COMPARISON: 05/26/18 HISTORY: Evaluate central line placement. FINDINGS: Stable left sided vascular catheter distal tip overlying the region of the right atrium. New dialysis catheter present on the right, distal tip overlying the region of the SVC. No pneumothorax or pleura l fluid. No focal consolidation or alveolar edema. IMPRESSION: Central venous catheters as above. POS: CANDI
--- NOTE | 2018-05-28 01:13 | OP ---
DATE: 05/27/2018 PREOPERATIVE DIAGNOSIS: End-stage renal disease. POSTOPERATIVE DIAGNOSIS: End-stage renal disease. PROCEDURE: Right IJ cuffed tunnel hemodialysis catheter, fluoroscopy and ultrasound use. SURGEON: Balaji Estevez M.D. ANESTHESIA: TIVA. Local 0.5% Marcaine with epinephrine 30 mL mixed with 2% Xylocaine, 10 mL PROCEDURE PERFORMED: The patient was taken to the operating room where under intravenous sedation, n placido and chest were prepared with ChloraPrep, draped in routine fashion. Local anesthetic infiltrated into skin and subcutaneous tissue about the operative site. Ultrasound guidance was used to cannula te the right internal jugular vein with the trocar catheter. Right internal jugular vein removed ___ __ trocar catheter, enlarged the skin entrance site sharply and making a stab incision over the right chest through which a cuffed tunneled precurved angiodynamics. Cuffed tunnel hemodialysis catheter was passed using the tunneling device, placing the cuff beneath the skin exit site bringing the kira ter up to the neck incision. Smaller medium-sized dilator was placed over the J-wire into the logistics intern al jugular vein and removed. Dilator and pull-away sheath placed over the J-wire in the superior juan carlos a cava. Dilator and J-wire removed. Catheter was placed with pull-away sheath. Pull-away sheath wa s removed. Platysma was approximated with 4-0 Monocryl, skin with subdermal 4-0 Monocryl. Fluorosco pic images revealed good catheter placement. Each port aspirated blood and flushed with saline solut ion and heparinized saline solution 1000 units heparin per mL indicated volume of the port. Sterile dressings applied.
[2018-05-28 05:06] VITALS: BMI 23.7
[2018-05-28] MEDS: cloNIDine 0.1 MG TAB PO PRN (06:04)
[2018-05-28 08:42] LABS: Hemoglobin 5.6 g/dL (12.0-16.0); Mean Corpuscular HGB CONC 32.7 g/dL (32.0-36.0); Mean Corpuscular Hemoglobin 30.8 pg (27.0-31.0); Mean Corpuscular Volume 94.2 fL (78.0-98.0); RBC Distribution Width 12.5 % (11.5-14.5); Red Blood Cell (RBC) Count 1.81 mill/uL (4.20-5.40); White Blood Cell (WBC) Count 10.4 thou/uL (4.8-10.8)
[2018-05-28 08:55] LABS: Albumin 2.2 g/dL (3.5-5.0); Anion Gap 10 mmol/L (10-20); BUN (Urea Nitrogen) 79 mg/dL (9.8-20.1); BUN/Creatinine Ratio 15.93; Calc. Creatinine Clearance 15 mL/min (70-130); Carbon Dioxide 26 mmol/L (22-29); Cardiac Risk 2.7 (Less than 4.5); Chloride 106 mmol/L (98-107); Cholesterol 73 mg/dl (< 200 Desired); Estimated GFR-MDRD 11; Glucose 108 mg/dL (70-105); HDL Cholesterol 27 mg/dL (>60 Neg Risk); LDL Cholesterol, Calculated 33 mg/dL; Phosphorus 4.2 mg/dL (2.3-4.7); Sodium 138 mmol/L (136-145); Triglycerides 63 mg/dL (Less than 150)
[2018-05-28] MEDS ORDERED: Aspirin 325 MG TAB PO SCH (09:00)
[2018-05-28] MEDS: hydrALAZINE 25 MG TAB PO SCH ×3 (09:37→20:53)
[2018-05-28] MEDS: Ezetimibe 10 MG TAB PO SCH (09:37)
[2018-05-28] MEDS: NIFEdipine XL 60 MG TAB PO SCH (09:37)
[2018-05-28] MEDS: Ferrous Gluconate 324 MG TAB PO SCH (09:37)
[2018-05-28] MEDS: Atorvastatin Calcium 40 MG TAB PO SCH (09:38)
[2018-05-28] MEDS: Carvedilol 6.25 MG TAB PO SCH ×2 (09:38→18:55)
[2018-05-28 09:46] LABS: #Eosinphils 0.2 thou/uL (0.0-0.7); #Lymphocytes 1.2 thou/uL (1.20-3.40); #Monocytes 0.8 thou/uL (0.11-0.59); #Neutrophils 8.3 thou/uL (1.40-6.50); %Basophils 0.3 % (0.0-1.0); %Eosinophils 1.5 % (0.0-10.0); %Lymphocytes 11.2 % (21.0-51.0); %Monocytes 7.3 % (0.0-10.0); %Neutrophils 79.8 % (42.0-75.0); Hypochromia SLIGHT = 6-15 cells (100X) (0-5/hpf); Lymphocytes 10 % (21-51); MDiff Complete? YES; Mean Platelet Volume 7.5 fL (7.4-10.4); Microcytosis MODERATE=15-30 cells (100X) (0-5/hpf); Monocytes 12 % (0-10); Neutrophil 78 % (42-75); PLT Morphology Comment Appears Adequate; Platelet Count 153 thou/uL (130-400)
[2018-05-28] MEDS: Acetaminophen 325 MG TAB PO PRN ×2 (10:08→20:52)
--- NOTE | 2018-05-28 11:32 | PDOC.PN ---
- Subjective Encounter Start Date: 05/28/18 Encounter Start Time: 10:15 Subjective: no abd pain or bleeding per rectum -: is awake, wanting to work with PT -: moves all extremities, ate her breakfast this am - Objective Resuscitation Status: Resuscitation Status FULL:Full Resuscitation MAR Reviewed: Yes Vital Signs & Weight: Vital Signs (12 hours) Temp Pulse Resp BP BP Pulse Ox 05/28/18 09:38 162/93 H 05/28/18 09:37 103 H 162/93 H 05/28/18 07:49 98.4 F 99 16 162/93 H 97 05/28/18 06:04 186/99 H 05/28/18 04:00 99.0 F 99 19 186/92 H 98 05/28/18 00:00 99.7 F H 114 H 19 177/93 H 99 Weight Admit Weight 128 lb 11.2 oz Weight 156 lb Most Recent Monitor Data Heart Rate from ECG 99 NIBP 153/85 NIBP BP-Mean 117 Respiration from ECG 24 SpO2 98 I&O: 05/27/18 05/28/18 05/29/18 06:59 06:59 06:59 Intake Total 2813 560 Output Total 2135 1300 Balance 678 -740 Result Diagrams: 05/28/18 08:00 05/28/18 08:00 Additional Labs: Accuchecks 05/28/18 05/28/18 05/27/18 10:39 05:58 22:03 POC Glucose 112 H 102 129 H 05/27/18 14:59 POC Glucose 117 H Phys Exam - Physical Examination HEENT: PERRLA, moist MMs Neck: no JVD, supple Respiratory: no wheezing, no rales Cardiovascular: RRR, no significant murmur Gastrointestinal: soft, non-tender, positive bowel sounds Musculoskeletal: no edema, pulses present Neurological: non-focal, moves all 4 limbs Psychiatric: normal affect, A&O x 3 Dx/Plan (1) Acute blood loss anemia Code(s): D62 - ACUTE POSTHEMORRHAGIC ANEMIA Status: Suspected (2) Severe anemia Code(s): D64.9 - ANEMIA, UNSPECIFIED Status: Acute Comment: initial Hb 2.2g , s/p 4 u prbc's (3) Metabolic acidosis Code(s): E87.2 - ACIDOSIS Status: Acute Comment: resolving (4) Acute renal failure Status: Acute Qualifiers: Acute renal failure type: unspecified Qualified Code(s): N17.9 - Acute kidney failure, unspecified (5) Acute metabolic encephalopathy Code(s): G93.41 - METABOLIC ENCEPHALOPATHY Status: Resolved (6) Overdose Code(s): T50.901A - POISONING BY UNSP DRUG/MEDS/BIOL SUBST, ACCIDENTAL, INIT Status: Resolved Comment: suspected hydrocodone OD (7) Demand ischemia of myocardium Code(s): I24.8 - OTHER FORMS OF ACUTE ISCHEMIC HEART DISEASE Status: Acute (8) CAD (coronary artery disease) Code(s): I25.10 - ATHSCL HEART DISEASE OF [place] CORONARY ARTERY W/O ANG PCTRS Status: Chronic Qualifiers: Coronary Disease-Associated Artery/Lesion type: [place] artery [place] vs. transplanted heart: [place] heart Associated angina: without angina Qualified Code(s): I25.10 - Atherosclerotic heart disease of [place] coronary artery without angina pectoris Comment: prior h/o 4 stents placed by (9) HTN (hypertension) Code(s): I10 - ESSENTIAL (PRIMARY) HYPERTENSION Status: Chronic Qualifiers: Hypertension type: essential hypertension Qualified Code(s): I10 - Essential (primary) hypertension (10) Dyslipidemia Code(s): E78.5 - HYPERLIPIDEMIA, UNSPECIFIED Status: Chronic (11) COPD (chronic obstructive pulmonary disease) Status: Chronic - Plan 2 u prbc today -: recurrent drop in Hb from 2.2g to 8g to 5g today -: has recieved total 4 u plus 2 that's ordered now (prbc) -: d/w ?colonoscopy, will get bleeding scan -: hemeonc consult, unlikely to be TTP * . on asp, lipitor, coreg, procardia, hydralazine, zetia. Had right IJ cuffed tunnel cath for HD placed yesterday by D/w , no HD today. Review of Systems - Medications/Allergies Allergies/Adverse Reactions: Allergies Allergy/AdvReac Type Severity Reaction Status Date / Time No Known Allergies Allergy Verified 05/22/18 22:53 Medications: Current Medications Acetaminophen (Tylenol) 650 mg PO Q4H PRN PRN Reason: Headache/Fever or Pain Last Admin: 05/28/18 10:08 Dose: 650 mg Albuterol Sulfate (Proventil Hfa) 3 puff INH PRN PRN PRN Reason: Wheezing Artificial Tears (Tears Naturale) 1 drop EA EYE PRN PRN PRN Reason: DRY EYES Last Admin: 05/25/18 22:19 Dose: 1 drop Aspirin (Aspirin) 325 mg PO DAILY [facility] Last Admin: 05/28/18 09:37 Dose: 325 mg Atorvastatin Calcium (Lipitor) 40 mg PO DAILY [facility] Last Admin: 05/28/18 09:38 Dose: 40 mg Carvedilol (Coreg) 12.5 mg PO BID-[facility] Last Admin: 05/28/18 09:38 Dose: 12.5 mg Clonidine (Catapres) 0.1 mg PO Q4H PRN PRN Reason: BP>180/100 Last Admin: 05/28/18 06:04 Dose: 0.1 mg Dextrose/Water (Dextrose 50%) 25 gm SLOW IVP PRN PRN PRN Reason: Hypoglycemia Ezetimibe (Zetia) 10 mg PO DAILY [facility] Last Admin: 05/28/18 09:37 Dose: 10 mg Epoetin Alex (Procrit) 10,000 units IVP MoWeFr@0900 [facility] Last Admin: 05/27/18 12:02 Dose: 10,000 units Ferrous Gluconate (Fergon) 324 mg PO QA-[facility] Last Admin: 05/28/18 09:37 Dose: 324 mg Glucagon (Glucagon) 1 mg IM PRN PRN PRN Reason: Hypoglycemia Hydralazine HCl (Apresoline) 50 mg PO TID [facility] Last Admin: 05/28/18 09:37 Dose: 50 mg Hydralazine HCl (Apresoline) 20 mg SLOW IVP Q6H PRN PRN Reason: SBP Greater Than 170 Last Admin: 05/27/18 05:28 Dose: 20 mg Dextrose/Water (D5w) 1,000 mls @ 0 mls/hr IV .Q0M PRN PRN Reason: Hypoglycemia Insulin Human Lispro (Humalog) 0 units SC .MILD SLIDING SCALE PRN PRN Reason: Mild Correctional Scale Naloxone HCl (Narcan) 0.4 mg IV PRN PRN PRN Reason: respiratory depression Nifedipine (Procardia Xl) 60 mg PO DAILY [facility] Last Admin: 05/28/18 09:37 Dose: 60 mg Ondansetron HCl (Zofran) 4 mg IVP Q6H PRN PRN Reason: Nausea/Vomiting Pantoprazole Sodium (Protonix) 40 mg PO DAILY [facility] Last Admin: 05/28/18 09:38 Dose: 40 mg Sodium Chloride (Flush - Normal Saline) 10 ml IVF Q12HR [facility] Last Admin: 05/28/18 09:39 Dose: 10 ml Sodium Chloride (Flush - Normal Saline) 10 ml IVF PRN PRN PRN Reason: Saline Flush Tuberculin PPD (Aplisol) 0.1 ml I-DERMAL ONE [facility] Stop: 05/29/18 17:01 Last Admin: 05/26/18 21:11 Dose: 0.1 each
--- NOTE | 2018-05-28 13:49 | PRG ---
DATE OF SERVICE: 05/28/2018. SUBJECTIVE: Patient was seen and examined at bedside and overnight events noted. Patient denies any shortness of breath or chest pain or palpitation. No history of nausea or vomiting or diarrhea or f ever or chills or cramps. OBJECTIVE: GENERAL: This is a well-built female in no apparent distress. VITAL SIGNS: Temperature 98.4, pulse , respiratory 16, blood pressure 162/93. HEENT: Atraumatic, normocephalic. Oral mucosa is moist. NECK: Supple. CARDIOVASCULAR: S1, S2 heard. Rate and rhythm regular. RESPIRATORY: Clear to auscultation. GASTROINTESTINAL: Abdomen is soft. MUSCULOSKELETAL: No tenderness, no edema. DERMATOLOGIC: No skin rash. NEUROLOGIC: Alert and awake and oriented x3. No focal neurologic deficits. Moving all the extremit ies. PSYCHIATRIC: Mood and affect normal. LABORATORY DATA: Potassium is 4.0, BUN is 79, creatinine 4.9. ASSESSMENT AND PLAN: 1. End-stage renal disease on hemodialysis. Continue on dialysis. 2. Edema, controlled. 3. Proteinuria. 4. Hypertension. 5. Anemia, rule out bleed. 6. We will continue on dialysis as tolerated.
--- NOTE | 2018-05-28 14:51 | PRG ---
DATE OF SERVICE: 05/28/2018. SUBJECTIVE: She is in fairly good spirits. She wants to get up and walk. OBJECTIVE: VITAL SIGNS: Temperature is 99.4, pulse 89, blood pressure 160/93, O2 sat 98%. HEENT: Unremarkable. NECK: She has a tunneled dialysis catheter into her right IJ. LUNGS: Fairly clear anteriorly. CARDIOVASCULAR: S1, S2, slightly tachycardic. ABDOMEN: Soft. EXTREMITIES: Diffuse trace edema bilaterally. LABORATORY DATA: White blood cell count 10.4, hemoglobin 5.6, hematocrit 17, platelet count 153. So dium 138, potassium 4, chloride 106, CO2 26, BUN 79, creatinine 4.9, glucose 108. ASSESSMENT: 1. Acute on chronic renal failure. 2. Status post respiratory failure. PLAN: Continue care per Nephrology. Her pulmonary status seems stable at this time. She is getting transfusion today. Pulmonary will sign off the case. Please recall if further assistance needed.
--- NOTE | 2018-05-28 15:28 | EKG ---
Test Reason : Blood Pressure : / mmHG Vent. Rate : 089 BPM Atrial Rate : 089 BPM P-R Int : 130 ms QRS Dur : 098 ms QT Int : 380 ms P-R-T Axes : 062 020 090 degrees QTc Int : 462 ms Normal sinus rhythm Possible Left atrial enlargement Left ventricular hypertrophy with repolarization abnormality Abnormal ECG Confirmed by SANTY TAYLOR, JESUS ([id number]), multimedia editor DARRYL CHENG ([id number]) on 05/28/2018 3:27:45 PM Referred By: Confirmed By:JESUS MADERA MD
--- NOTE | 2018-05-28 15:50 | NM ---
RADIONUCLIDE TAGGED RED BLOOD CELLS SCAN 05/28/18 HISTORY: Anemia. FINDINGS: Anterior planar images of the abdomen show uptake over the left upper quadrant as early as 7 minute s. Increasing uptake swirls about the upper abdomen. As of 52 minutes, it does not reliably extend to the right lower quadrant or colon. IMPRESSION: Enteric hemorrhage upper abdomen, left upper quadrant favored. Probable proximal small bowel. Findings were called to Dr. Branch at 1540 hours. Code CR POS: [place]
[2018-05-28 16:33] VITALS: TEMP 99
[2018-05-28] MEDS: Artificial Tears 18 DROP/0.9 ML EA EYE PRN (18:55)
[2018-05-28 18:57] VITALS: BP 162/90
--- NOTE | 2018-05-29 21:12 | DIS ---
DATE OF ADMISSION: 05/22/2018 DATE OF DISCHARGE: 05/28/2018 DISCHARGE DISPOSITION: To [facility] for higher level of care for small bowel bleed. PRIMARY DISCHARGE DIAGNOSES: Suspected small bowel bleeding, acute blood anemia , acute renal failure with metabolic acidosis, demand ischemia, coronary artery disease, hypertension, dyslipidemia and chronic obstructive pulmonary disease. PROCEDURES DONE DURING HOSPITALIZATION: Abdominal and pelvic CAT scan stone protocol done on the day of admission showed no evidence of obstructive uropathy. There are small bilateral pleural effusions with ascites and mild anasarca. Chest x-ray done showed no acute cardiopulmonary abnormalities. Echo with 2D Doppler done showed an EF of 55%-60% with moderate concentric LVH, moderate mitral regurgitation and severe tricuspid regurgitation. Upper endoscopy done by Dr. Calvillo on 05/24/2018 showed mild erosive antritis status post biopsy of this area. Otherwise, normal esophagogastroduodenoscopy. Biopsy of the duodenum second portion was unremarkable. No evidence of celiac sprue. Stomach antrum biopsy was unremarkable and had carpus type mucosa and no H. pylori type organisms were identified. MRI brain done on 05/26/2018 showed no evidence of acute intracranial process. There are chronic small vessel ischemic changes seen. MR angiogram of the brain was unremarkable. Renal ultrasound done on 05/25/2018 showed right renal cyst, no hydronephrosis. There is free fluid of the abdomen and pelvis, increased echogenicity of the kidneys which may be on the basis of medical renal disease. On 05/26/2018, patient had a right femoral vein Trialysis catheter placed and left IJ triple lumen catheter placed by Dr. Estevez. On 05/27/2018, patient had a right IJ cuffed tunnel hemodialysis catheter by Dr. Estevez. Nuclear bleeding scan done on 05/28/2018 showed enteric hemorrhage in the upper abdomen, left upper quadrant favored probable proximal small bowel. Hemoglobin was 2.2 grams at [facility] prior to transfer here. Discharge hemoglobin was 5.6 grams prior to getting 2 units of transfusion. Hematocrit was 17, MCV is 94. Haptoglobin was 141 mg per deciliter. Discharge BUN and creatinine is 79 and 4.96. Admitting creatinine was 9.62. Admitting BUN was 153. Discharge serum bicarbonate is 26. Admitting bicarbonate was 11. Total cholesterol 73, triglycerides 63, LDL 33, HDL 27. Serum test was negative. TSH 1.14 , albumin 2.8. Vitamin B12 469. Folic acid 10.50. Serum iron 24, TIBC 278. Ferritin was 36. BNP 1901 on the day of admission. Urine tox screen was negative, this was on 05/26/2018. Urine creatinine was 47.14. Urine random total protein was 71. DARBY screen negative. Anti-double stranded DNA IgG antibody was less than 0.5. Glomerular basement membrane antibody less than 1.9 and ANCA less than 120. Hepatitis panel was nonreactive. HIV 1 and 2 nonreactive. Stool occult blood on 05/23/2018 was positive. INPATIENT CONSULTS: Dr. Toussaint for Nephrology, Dr. Bobo for Pulmonology, Dr. Estevez for Vascular Surgery, Dr. Silvino Tong for Gastroenterology. BRIEF COURSE DURING HOSPITALIZATION: Patient initially was transferred from [facility] after patient arrived there with generalized weakness and shortness of breath. Her hemoglobin was found to be 2.2 grams at [facility]. She was given 2 units of packed cell transfusion and subsequent 2 units were given here. The patient also had creatinine of 9.62 with BUN of 150 and serum bicarbonate of 11 on admission. She was admitted to telemetry and has had aggressive hydration done. She has had consultation with pump rebuilder, Dr. Silvino Tong. Upper endoscopy was done which revealed gastritis, but no obvious bleeding pathology. She has had consultation with Dr. Toussaint for Nephrology. The patient has had slow improvement in her creatinine, but on 05/26/2018, patient had an episode of global aphasia and was more lethargic than her usual. She also had pinpoint pupils and hyperreflexia. She had a bottle of hydrocodone next to her and was suspected to have had overdosed. She responded well to Narcan clinically. She was on a Narcan drip and placed in ICU for 8 hours and was closely monitored for another extra 8 hours. The patient was responding well and was moving all extremities. She has had brain MRI and MR angiogram done when this happened, which did not reveal any acute infarct or bleed. She was later downgraded to stroke unit and was closely monitored with telemetry. On 05/28/2018, patient's hemoglobin dropped to 5 grams after being stable around 8 grams after her admission and transfusion of 4 units of packed cells. This was concerning and I spoke to Dr. Richards for Gastroenterology who was relationship counselor. We obtained a bleeding nuclear scan which showed findings of small bowel bleed in the left upper quadrant. A decision was made to transfer her to a higher level for possible enteroscopy/ embolization by Interventional Radiology as the services are not available here. I did speak to Dr. Hartman, pump rebuilder at [facility] who has accepted the patient. She will be shortly discharged there once a bed becomes available. Please note, patient had a 2-hour session of hemodialysis done on when she developed global aphasia and more altered mentation and was suspected to have hydrocodone overdose. Her discharge creatinine is 4 and patient has been making 1300 mL of urine in the last 24 hours prior to discharge. She has dialysis access if needed. A total of 35 minutes was spent on discharge plan. Please see a [id number] documentation on [facility] for the day of discharge. MTDD
--- NOTE | 2018-05-30 14:04 | PRG ---
DATE OF SERVICE: 05/28/2018 SUBJECTIVE: Ms. Jyoti Peacock is a 53-year-old -[place] female hospitalized with severe anemia and also renal failure. She has been seen by Dr. Toussaint in consultation and she is now on he modialysis. The patient has had blood transfusion. The patient has been seen by Dr. Silvino Tong i n consultation. She had an EGD done by Dr. Tuan Calvillo, which was negative for any pathology on 05/25. The EGD showed mild erosive antral gastritis, otherwise, no other pathology seen. The patien t appears weak and somewhat lethargic. The patient had been transfused and her blood count actually came to a little bit more than 8. The last hemoglobin on 05/27/2018 was 8.4, hematocrit 25.2. Her b lood count dropped to 5.6 today, hematocrit dropped to 17. The patient has no history of overt GI bl eeding. The patient has had no hematemesis or any coffee-ground vomiting. She also has had no hemat ochezia or any melena. She tells me she has had no stool since this past Wednesday. The patient was s ent for a GI bleeding scan by Dr. Branch this afternoon because of drop in blood count with ____ _ bleeding. The tagged RBC scan showed a bleeding site at the small bowel. on the left upper quadrant, tracking down in the loop indicative of small bowel bleeding. The patient had an EGD I sherrell moise 4 days ago. I did review the scan with radiologist and I could really see the active bleeding a t the left upper quadrant. I did do rectal exam after reviewing the bleeding scan. Rectal exam show ed some scanty pellet-like stools and no blood seen; however, the scan showed little darkish stool. PHYSICAL EXAMINATION: GENERAL: She appears weak and lethargic. VITAL SIGNS: Her temperature is 99 degrees Fahrenheit, pulse is 105, blood pressure 115/91. CARDIOVASCULAR SYSTEM: First and second heart sounds normal. LUNGS: Clear to auscultation. ABDOMEN: Soft and nontender. RECTAL: No active bleeding and showed some scant pellet-like stools and the stool looks little darki sh. CLINICAL IMPRESSION: Anemia with drop in blood count bleeding; however, the GI bleeding scan s hows active bleeding in the small bowel. I did talk to Dr. Branch and made recommendation for h er to be transferred to a tertiary care center for enteroscopy. I did talk to the patient's 2 sister s in the room. I explained them over the tagged RBC scan findings and informed that most likely she may be transferred out today. In the meantime, we would transfuse her and bring her blood count arou nd at least 9 grams.
== END 2018-05-28 22:33 | disposition short-term general hospital (02) | DRG 682 ==
LOC: ERS 18:25 → 2NO 19:05 → IMCU/EMU 05-26 10:37 → CCU 05-26 11:54 → 2SE 05-27 19:11
PROVIDERS: ADMIT Hospitalist; ATTEND Hospitalist
PROC: 30233N1 Transfusion of Nonautologous Red Blood Cells into Peripheral Vein, Percutaneous Approach (ICD-10-PCS; principal; 2018-05-22)
PROC: 5A1D70Z Performance of Urinary Filtration, Intermittent, Less than 6 Hours Per Day (ICD-10-PCS; 2018-05-22)
PROC: 0DB68ZX Excision of Stomach, Via Natural or Artificial Opening Endoscopic, Diagnostic (ICD-10-PCS; 2018-05-24)
PROC: 06HM33Z Insertion of Infusion Device into Right Femoral Vein, Percutaneous Approach (ICD-10-PCS; 2018-05-26)
PROC: B54BZZA Ultrasonography of Right Lower Extremity Veins, Guidance (ICD-10-PCS; 2018-05-26)
DX: N17.9 Acute kidney failure, unspecified (principal); G93.41 Metabolic encephalopathy; E87.2 Acidosis; I24.8 Other forms of acute ischemic heart disease; K92.2 Gastrointestinal hemorrhage, unspecified; R47.01 Aphasia; D62 Acute posthemorrhagic anemia; I12.0 Hypertensive chronic kidney disease with stage 5 chronic kidney disease or end stage renal disease; N18.6 End stage renal disease; N18.3 Chronic kidney disease, stage 3 (moderate); D63.1 Anemia in chronic kidney disease; E11.22 Type 2 diabetes mellitus with diabetic chronic kidney disease; I25.10 Atherosclerotic heart disease of native coronary artery without angina pectoris; Z95.5 Presence of coronary angioplasty implant and graft; Z79.899 Other long term (current) drug therapy; Z79.891 Long term (current) use of opiate analgesic; Z79.02 Long term (current) use of antithrombotics/antiplatelets; Z79.82 Long term (current) use of aspirin; F41.9 Anxiety disorder, unspecified; T40.2X1A Poisoning by other opioids, accidental (unintentional), initial encounter; Y92.239 Unspecified place in hospital as the place of occurrence of the external cause; F12.90 Cannabis use, unspecified, uncomplicated; G40.909 Epilepsy, unspecified, not intractable, without status epilepticus; E78.5 Hyperlipidemia, unspecified; J44.9 Chronic obstructive pulmonary disease, unspecified
CPT/HCPCS: 36415; 36416; 36430; 70544; 70551; 71045; 74176; 76770; 78278; 80048; 80061; 80069; 80074; 80306; 80307; 81003; 81015; 82274; 82550; 82553; 82570; 82607; 82728; 82746; 83010; 83516; 83520; 83540; 83550; 83615; 83880; 84156; 84443; 84484; 84703; 85025; 85060; 85610; 85730; 86038; 86225; 86256; 86580; 86850; 86880; 86900; 86901; 87389; 88305; 88312; 93005; 93306; 93970; 94760; 96365; 96366; 96374; 96375; A4216; A9604; C1752; C1769; C9113; G0365; J0360; J0670; J0885; J1642; J1644; J2250; J2310; J2405; J2704; J3010; J7050; J7070; P9016

== ENCOUNTER 2018-08-02 07:46 | Day surgery (SDC) | payer OTHER ==
[2018-08-01 10:35] VITALS: BMI 19.4
--- NOTE | 2018-08-01 12:32 | HP ---
HISTORY OF PRESENT ILLNESS: Jyoti Peacock is a 53-year-old black female, dialyzes at [facility] (formerly [facility]), Wednesday, Wednesday, and Wednesday, either 5 o'clock in the morning or 1130 hours day dependent. She is followed by Dr. Toussaint. She is followed by Dr. Robert Dos Santos. The patient lives alone but her family lives nearby. The patient had a hemodialysis catheter placed, right IJ during the hospitalization to initiate dialysis in April 2018. She had ultrasound vein mapping performed at that time revealing right cephalic vein, 4 mm, 4 mm, 5 mm, 1.2 mm, antecubital fossa, basilic vein, right, 1 mm, 1.5 mm, 1.3, and 1.8 mm antecubital fossa. Left cephalic vein 0.6 mm, 0.8 mm, 1 mm, 1.4 mm antecubital fossa, basilic vein 1.6, 1.1, 0.8, and 1.1 antecubital fossa. The patient reports to my office today to discuss peritoneal dialysis. She is initially referred to the [facility] for peritoneal dialysis. During that visit, they had a venogram bilateral suggesting that cephalic vein in the left forearm appears to be adequate size to support a fistula. The right forearm cephalic vein was very small. This is in agreement with ultrasound vein mapping, although ultrasound vein mapping at [facility] earlier revealed suboptimal veins. Discussion for placement of peritoneal dialysis was held and the patient demanded general anesthesia and placement of a PD catheter was deferred. I have since discussed this with Reba at the [facility] in [place]. Plan is for laparoscopic peritoneal dialysis catheter placement and follow up with the [place] peritoneal dialysis nurse, Reba, 3 to 7 days postoperatively to instruct training and to flush the catheter, early initiation of dialysis, 10 to 14 days after surgery can be performed, low volume and progress to regular volume. At the time of that operation under general anesthesia, also would explore her left arm for formation of her primary fissure realizing veins may be suboptimal. Would avoid placement of prosthetic graft in this patient with plans for peritoneal dialysis. ALLERGIES: NONE. TOBACCO: None. ALCOHOL: None. MEDICATIONS: Hydralazine, clonidine, ramipril, Protonix, hydrocodone, gabapentin, Plavix, baclofen, atorvastatin, and aspirin. PAST MEDICAL HISTORY: Hypertension, hypertensive cardiac disease with normal cardiac catheterization in 2015, normal stress test recently. Echocardiogram, hyperdynamic LV with ejection fraction greater than 70%. The patient reports having had stents in the past, but have talked with Dr. Dos Santos and she has not had a stent. She was sent to [place] on one occasion from [place], but was found to have a negative cardiac stress test and a normal cardiac catheterization. Diabetes mellitus. PAST SURGICAL HISTORY: Placement of hemodialysis catheter, laparoscopic cholecystectomy, hysterectomy. PHYSICAL EXAMINATION: VITAL SIGNS: 129 pounds, 5 feet 8 inches, 120/80, 88, 99 degrees. HEAD, EARS, EYES, NOSE, AND THROAT: Unremarkable. LUNGS: Clear to auscultation. CARDIAC: Regular rhythm without murmur or gallop. ABDOMEN: Soft, nontender, and nondistended. No hernia is evident. EXTREMITIES: Unremarkable. No ankle edema. Right IJ cuffed tunneled dialysis catheter exiting the right chest. ASSESSMENT AND PLAN: 1. End-stage renal disease, on maintenance hemodialysis, Wednesday, Wednesday, and Wednesday, at [facility] (formerly [facility]). Would plan laparoscopic placement of peritoneal dialysis catheter and formation of left arm fistula. Risks of infection, bleeding, reoperation, malfunction of PD catheter and/or fistula with eventual revisions discussed. Questions answered. 2. Hypertension. 3. Diabetes. 4. History of hysterectomy. 5. History of cardiac catheterizations that have been normal and chemical stress test negative for any ischemia. Job ID: [id number]
[2018-08-02] MEDS ORDERED: Ketorolac Tromethamine 30 MG/ML VIAL ONE (11:23)
[2018-08-02 12:01] LABS: #Basophils 0.1 thou/uL (0.0-0.2); #Eosinphils 0.2 thou/uL (0.0-0.7); #Lymphocytes 1.2 thou/uL (1.20-3.40); #Monocytes 0.8 thou/uL (0.11-0.59); #Neutrophils 4.7 thou/uL (1.40-6.50); %Basophils 0.9 % (0.0-1.0); %Eosinophils 2.3 % (0.0-10.0); %Lymphocytes 17.6 % (21.0-51.0); %Monocytes 11.1 % (0.0-10.0); %Neutrophils 68.2 % (42.0-75.0); Hemoglobin 10.2 g/dL (12.0-16.0); Mean Corpuscular HGB CONC 31.4 g/dL (32.0-36.0); Mean Corpuscular Hemoglobin 28.6 pg (27.0-31.0); Mean Corpuscular Volume 91.3 fL (78.0-98.0); Mean Platelet Volume 6.9 fL (7.4-10.4); Platelet Count 373 thou/uL (130-400); RBC Distribution Width 14.3 % (11.5-14.5); Red Blood Cell (RBC) Count 3.55 mill/uL (4.20-5.40); White Blood Cell (WBC) Count 6.9 thou/uL (4.8-10.8)
[2018-08-02 12:20] LABS: Anion Gap 15 mmol/L (10-20); BUN (Urea Nitrogen) 65 mg/dL (9.8-20.1); Calc. Creatinine Clearance 10 mL/min (70-130); Calcium 9.5 mg/dL (7.8-10.44); Carbon Dioxide 26 mmol/L (22-29); Chloride 109 mmol/L (98-107); Estimated GFR-MDRD 8; Glucose 89 mg/dL (70-105); Potassium 4.6 mmol/L (3.5-5.1); Sodium 145 mmol/L (136-145)
[2018-08-02] MEDS ORDERED: Fentanyl 100 MCG/2 ML VIAL ONE ×2 (14:45→17:16)
[2018-08-02] MEDS ORDERED: CEFAZOLIN 2 GM/50 ML BAG ONE (14:49)
[2018-08-02] MEDS ORDERED: Bupivacaine HCl 0.5%/Epinephrine 1:200,000/PF 30 ml Vial ONE (14:50)
[2018-08-02] MEDS ORDERED: Bupivacaine/Epinephrine 0.25% 30 ML VIAL ONE (14:50)
[2018-08-02] MEDS ORDERED: Heparin 5,000 UNITS/ML VIAL ONE (14:51)
[2018-08-02] MEDS ORDERED: Lidocaine 2% PF 5 ML VIAL ONE (14:53)
[2018-08-02] MEDS ORDERED: Heparin 0 ML ONE (15:22)
[2018-08-02] MEDS ORDERED: Heparin 10,000 UNITS/1 ML VIAL ONE (15:22)
[2018-08-02] MEDS ORDERED: Protamine Sulfate 50 MG/5 ML VIAL ONE (16:22)
[2018-08-02] MEDS ORDERED: Promethazine HCl 25 MG/ML VIAL IM PRN (16:46)
[2018-08-02] MEDS ORDERED: Promethazine HCl 25 MG/ML VIAL SLOW IVP PRN (16:46)
[2018-08-02] MEDS ORDERED: Ondansetron HCl/PF 4 MG/2 ML Vial IVP PRN (16:46)
[2018-08-02] MEDS ORDERED: Heparin 10,000 UNITS/ 10 ML VIAL ONE (18:15)
[2018-08-02] MEDS ORDERED: HYDROcodone/Acetaminophen 5/325 mg Tablet ONE (18:27)
--- NOTE | 2018-08-03 07:45 | OP ---
DATE OF PROCEDURE: 08/02/2018 PREOPERATIVE DIAGNOSIS: End-stage renal disease, desires peritoneal dialysis. POSTOPERATIVE DIAGNOSES: End-stage renal disease, desires peritoneal dialysis with stenotic cephalic vein, left upper arm, inadequate for a fistula, adhesions in pelvis and omentum. DESCRIPTION OF PROCEDURE: The patient was taken to the operating room, where under general anesthesia, abdomen and left upper extremity were prepared with ChloraPrep and draped in routine fashion. Bilateral subcostal incision made laterally, and pneumoperitoneum to 15 mmHg was obtained through the Veress needle, replaced with a 5 port, and the laparoscope inserted. Contralateral 5 port was placed under laparoscopic visualization. There were omental adhesions in the pelvis. These were taken down with LigaSure, freeing the omentum. Exit site in the left lower quadrant chosen. Stab incision made and just above this, at the umbilical level, an incision was made. An 8 mm port placed under laparoscopic visualization directed caudally through the subcutaneous tissue, rectus sheath, and abdominal cavity inferiorly/caudally. PD catheter with double-cuffed pigtail placed through this 8 mm port into the pelvis laparoscopically visualizing, placing the internal cuff and the rectus sheath, removed 8 mm port using the [place] dissector placed through the planned exit site, left lower quadrant directed through the counter incision. The catheter was grasped, brought out through the exit site and an external cuff placed beneath the skin. Subcutaneous tissue was approximated with 3-0 Monocryl, skin with subdermal 4-0 Monocryl. Catheter flushed with saline solution and heparinized saline solution with 1000 units of heparin per mL indicating volume of the port. Laparoscopic omentopexy performed pulling the omentum up into the upper abdomen, secured into the anterior abdominal wall with transabdominal fixation suture using a GraNee needle. Good hemostasis was noted. Irrigant and pneumoperitoneum evacuated, all instruments removed, and all skin incisions were approximated with interrupted subdermal 4-0 Monocryl, and Deepstep glue and sterile dressings applied. Incision was made in the left volar forearm just below the antecubital fossa longitudinally, carried down through skin and subcutaneous tissue, antecubital vein seemed to be of adequate size, but although on the smaller side, it was dissected free. The perforating branch was too small. Thus, the cephalic vein in forearm used, dissected free, stump clipped with 2 clips and divided, and the vein spatulated using coronary dilators. It was interrogated from 2 mm to 3.5 mm cephalic outflow noting some stenosis at the antecubital area. It, however, accommodated the dilators. I then flushed with heparinized saline solution and no leak. The vein from the stenosis had split, thus it was inadequate for a fistula, and clips were applied, and subcutaneous tissue was approximated with 3-0 Monocryl, skin with subdermal 4-0 Monocryl, and Deepstep glue. Local anesthetic was infiltrated in the skin and subcutaneous tissue about the operative site and 0.25% Marcaine with epinephrine 60 mL mixed with 2% Xylocaine 10 mL local anesthetic used. The patient tolerated the procedure well. Job ID: [id number]
== END 2018-08-02 19:05 | disposition home or self-care (01) ==
LOC: SDC 07:46
PROVIDERS: ATTEND Specialist
PROC: 0WHG43Z Insertion of Infusion Device into Peritoneal Cavity, Percutaneous Endoscopic Approach (ICD-10-PCS; principal; 2018-08-02)
DX: I13.11 Hypertensive heart and chronic kidney disease without heart failure, with stage 5 chronic kidney disease, or end stage renal disease (principal); E11.22 Type 2 diabetes mellitus with diabetic chronic kidney disease; N18.6 End stage renal disease; I87.1 Compression of vein; N73.6 Female pelvic peritoneal adhesions (postinfective); M19.90 Unspecified osteoarthritis, unspecified site; F41.9 Anxiety disorder, unspecified; Z99.2 Dependence on renal dialysis; Z79.82 Long term (current) use of aspirin; Z79.899 Other long term (current) drug therapy
CPT/HCPCS: 36415; 80048; 85025; 96374; J0131; J0670; J1644; J1885; J2001; J2720; J3010; J3490

== ENCOUNTER 2019-02-15 13:36 | Inpatient (IN) | payer MEDICARE, MEDICAID ==
[2019-02-15] MEDS ORDERED: niCARdipine 20MG In NaCl 20 MG/200 ML BAG ONE (13:48)
[2019-02-15] MEDS ORDERED: Fosphenytoin Sodium 1,500 MG in Sodium Chloride 0.9% 50 ML IVPB SCH (14:30)
[2019-02-15] MEDS ORDERED: Labetalol HCl 100 MG/20 ML VIAL SLOW IVP PRN (15:02)
[2019-02-15] MEDS ORDERED: cloNIDine 0.1 MG TAB PO PRN (15:02)
[2019-02-15] MEDS ORDERED: Lorazepam 2 MG/ML VIAL SLOW IVP PRN ×2 (15:03→19:21)
[2019-02-15] MEDS ORDERED: Milk Of Magnesia 30 ML UDCUP PO PRN (15:05)
[2019-02-15] MEDS ORDERED: Dextrose 50% Abboject 50 ML SYRINGE SLOW IVP PRN (15:05)
[2019-02-15] MEDS ORDERED: Mag-Al 1200 mg/1200 mg/30 ML UDCUP PO PRN (15:05)
[2019-02-15] MEDS ORDERED: HumaLOG 300 UNITS/3 ML VIAL SC PRN ×2 (15:05)
[2019-02-15] MEDS ORDERED: Ondansetron PF 4 MG/2 ML Vial IVP PRN (15:05)
[2019-02-15] MEDS ORDERED: Dextrose 5% in Water 1,000 ML IV PRN (15:05)
[2019-02-15] MEDS ORDERED: Acetaminophen 325 MG/10.15 ML UDCUP PO PRN (15:05)
[2019-02-15] MEDS ORDERED: Acetaminophen 325 MG Suppository PR PRN (15:05)
[2019-02-15] MEDS ORDERED: Bisacodyl 5 MG TAB PO PRN (15:05)
[2019-02-15 16:17] LABS: Bilirubin Negative (Negative); Blood, Urine Trace (Negative); Clarity Clear (Clear); Glucose, Urine (Dipstick) Negative (Negative); Leukocyte Large (Negative); Nitrite Negative (Negative); Protein, Urine (Dipstick) 100 mg/dL (Neg-Trace); Urobilinogen 0.2 mg/dL (0.2-1.0)
[2019-02-15 16:28] LABS: RBC/HPF 0-3 HPF (0-3)
[2019-02-15 16:29] LABS: Bacteria/HPF None Seen HPF (None Seen); Hyaline Casts/LPF 0-3 HYALINE CAST LPF (0-3 Hyaline); Squamous Epithelial 0-3 HPF (0-3)
[2019-02-15 16:31] LABS: Troponin I 0.044 ng/mL (< 0.028)
--- NOTE | 2019-02-15 16:43 | MRI ---
BRAIN MRI WITHOUT IV CONTRAST: 02/15/19 HISTORY: Follow-up stroke alert. Seizures. Unresponsive. There is no focal mass or midline shift. There is some minimal chronic white matter ischemic change. No evidence for acute infarct. Very mild sinus mucosal congestive changes. Expected flow voids are pr esent. IMPRESSION: Very mild atrophy and chronic white matter ischemic change. No mass or bleed. No acute infarct. No ot her significant acute process. Depending upon concern, if patient's symptoms do not resolve, follow-up study with IV contrast might give additional information. POS: OFF
[2019-02-15] MEDS: hydrALAZINE 20 MG/ML VIAL SLOW IVP PRN (17:25)
--- NOTE | 2019-02-15 17:32 | HP ---
PRIMARY CARE PHYSICIAN: Out of town. CHIEF COMPLAINT: Altered mental status and seizure like activity. HISTORY OF PRESENTING ILLNESS: Ms. Peacock is a 53-year-old female with past medical history of end-stage renal disease, on peritoneal dialysis, as well as history of chronic anemia, hypertension, and diabetes, who was brought into the emergency room with as above mentioned complaint. History is mainly obtained by the chart, review and discussion with the ER physician. The patient is very altered and not able to provide any history and there are no family at the bedside. According to the ER physician, Ms. Peacock was transferred from [facility]. There, she was taken by EMS when the family found her on the floor having seizure-like activity. She was last seen normal around 2 o'clock in the afternoon today. She has noted history of seizure as per the records. She was given Ativan and Narcan. Her blood sugar was 128, temperature 99.2. She was brought here to our facility. In our emergency room, she was significantly hypertensive with systolic blood pressure as high as 220 and diastolic 110. She was started on Cardene drip. She was found to have some seizure-like activity in the emergency room as well with clenching of the teeth and some jerking movement of eye and upper body. She was ordered fosphenytoin loading dose. Her chair inspector Dr. Toussaint was consulted with regard to maintenance of peritoneal dialysis and she is now being admitted to CCU for hypertensive urgency and seizures. PAST MEDICAL HISTORY: 1. Diabetes mellitus type 2. 2. TX in 2009. 3. Hypertension. 4. Anemia. 5. Arthritis. 6. Cholelithiasis. PAST SURGICAL HISTORY: 1. Cardiac stents x4. 2. Hysterectomy. 3. Cholecystectomy. PSYCHIATRIC HISTORY: Anxiety. SOCIAL HISTORY: She abuses marijuana. She is a former tobacco abuser. ALLERGIES: NO KNOWN MEDICATION ALLERGIES. HOME MEDICATIONS: Unknown. Need to be reconciled. FAMILY HISTORY: Hypertension in father. REVIEW OF SYSTEMS: Unobtainable as the patient is quite obtunded and does not answer any questions. Her eyes are closed. LABORATORY DATA: Labs were done in [facility], which showed potassium 5.5, creatinine 7.9, troponin 0.030. WBCs of 15, otherwise within normal limits. Chest x-ray and CT of the head done in [facility] reportedly is within normal limit. Her urine drug screen was found to be positive for opioids only. PHYSICAL EXAMINATION: VITAL SIGNS: Upon presentation, blood pressure 207/131, now 178/104, pulse of 107, respirations 14, saturating 98% on room air, temperature 98.8. GENERAL: She is lethargic and somnolent, not responding to any verbal or tactile stimulus. She keeps her eyes closed and has been having jerky movements behind her eyelids and her teeth were clenched. She appears nontoxic and not in any acute distress. She opens her eyes to verbal stimulus, but does not answer questions. HEENT: Mucous membrane is moist and pink. No oropharyngeal exudate or erythema. Head is normocephalic and atraumatic. Pupils are equal and reactive to light and accommodation. NECK: Supple without any lymphadenopathy, JVD, or bruit. CHEST: Clear to auscultation without any wheezing, rales, or rhonchi. HEART: Rate and rhythm is tachycardic and regular without any significant murmurs. ABDOMEN: Soft, nontender, nondistended. Positive bowel sounds. PD catheter in left lower quadrant displaced and looks clean. EXTREMITIES: Free of any cyanosis, clubbing, or edema. NEUROLOGICAL: She has clonus in bilateral lower extremity. Neurological examination cannot be completed as the patient does not follow any commands. She was seen to be having these jerking movements of her face including face twitching, eye twitching, and twitching of her upper extremities. She keeps her teeth clenched tightly. She wakes up briefly when her name is called. SKIN: Free of any rashes or bruises. Feels warm and dry to touch. IMPRESSION AND PLAN: 1. Altered mental status. The patient possibly is having seizures. She has been loaded with fosphenytoin with improvement in her symptoms. We will put her on b.i.d. dosing of Keppra and obtain an EEG as well as MRI of the brain to rule out structural causes. We will request consultation with Neurology for further recommendations. She can also be having encephalopathy as part of hypertensive urgency. We will provide optimal control of her blood pressure and avoid significant lowering of the blood pressure too quickly. CVA is not suspected at this time. 2. Hypertensive urgency. Continue Cardene drip for now. Add p.r.n. medications and reconcile home medications. She will be in the CCU. 3. End-stage renal disease, on peritoneal dialysis. Her chair inspector Dr. Toussaint has been consulted. She will be on maintenance hemodialysis while she is here. 4. Diabetes mellitus. She is currently going to be n.p.o. until her mentation clears up. We will use insulin sliding scale with Accu-Cheks. 5. Deep venous thrombosis and gastrointestinal prophylaxis and p.r.n. medications. DISPOSITION: Ms. Peacock is currently being admitted to CCU for acute encephalopathy either due to seizures or hypertensive urgency or a combination of both. Further management will depend upon her clinical course. Job ID: [id number]
--- NOTE | 2019-02-15 17:38 | CON ---
DATE OF CONSULTATION: HISTORY OF PRESENT ILLNESS: A 53-year-old female. History is outlined, where she was found down at home. EMS arrived. En route, she was seizing. She was given Ativan and apparently Dilantin. She was previously hospitalized here in 2018 with intake of morphine and narcotics. She was placed on a Narcan drip for at that time, seen by Dr. Bobo. She was transferred to the ICU. I was called to see the patient after they felt she was having shallow respirations. MRI of the brain done shows evidence of mild atrophy. No bleed or infarct was seen. She is on a Cardene drip. Apparently, this is a new onset seizure activity. PAST MEDICAL HISTORY: Diabetes, hypertension, renal failure, chronic anemia, arthritis, cholecystitis, and coronary artery disease. PAST SURGICAL HISTORY: Cardiac stent, hysterectomy, and cholecystectomy. MEDICATIONS: Medicines well outlined in records and a long list brought to the hospital includes home medicine; 1. Hydralazine 50 three times a day. 2. Catapres 0.2. 3. Ramipril 5. 4. Protonix 40. 5. Zetia 10. 6. Atorvastatin 80. 7. Aspirin. 8. Amlodipine 10. 9. Albuterol. SOCIAL HISTORY: History of drug abuse and tobacco abuse. Toxicology screen not done today. PHYSICAL EXAMINATION: VITAL SIGNS: On examination; pulse is 100, blood pressure 164/51, O2 saturations 100%, and respirations 15. HEENT: Pupils are pinpoint. CHEST: Decreased breath sounds. No wheezing. CARDIAC: Normal S1 and S2. No gallops. ABDOMEN: No masses. LABORATORY DATA: Labs shows MRI of the brain negative. Creatinine was 7.9 and BUN 63. White count was 15, H and H unremarkable, and platelet count is 336. Toxicology screen from [facility] shows possibly opiates. IMPRESSION: Metabolic encephalopathy, new onset seizures, probably postictal with renal failure, hypertension, and coronary artery disease. PLAN: Continue antiseizure medication. Keppra is ordered. Await input from Neurology. Pulmonary/Critical Care will follow in the ICU. At this stage, she is breathing comfortably, saturations are okay. We will not give additional Narcan. Consultation note, 70 minutes, 50% direct patient care. Job ID: [id number]
[2019-02-15 18:35] LABS: Troponin I 0.059 ng/mL (< 0.028)
[2019-02-15] MEDS ORDERED: Famotidine/PF 20 mg/2ml Vial SLOW IVP SCH (21:00)
[2019-02-15] MEDS: Nitroglycerin 2% Ointment 1 INCH/1 GM Packet TOP SCH (21:03)
[2019-02-15 22:12] LABS: Troponin I 0.023 ng/mL (< 0.028)
[2019-02-16] MEDS: hydrALAZINE 20 MG/ML VIAL SLOW IVP PRN ×2 (02:45→10:55)
--- NOTE | 2019-02-16 04:28 | CON ---
DATE OF CONSULTATION: 02/15/2019 CONSULTING PHYSICIANS: Dr. Millan from ER and Dr. Hdz. REASON FOR CONSULT: End-stage renal disease evaluation. REASON FOR ADMISSION: Altered mentation and possible seizure. HISTORY OF PRESENT ILLNESS: A 53-year-old female with history of type 2 diabetes, hypertension, end-stage renal disease, and coronary artery disease came to the hospital with above complaints. The patient was found down at home and was later found seizing. She was taken to the hospital and she was loaded with Keppra and Cerebyx and seen in ICU. The patient is not able to give a history. She is most likely postictal and with altered mentation, and not able to give a history. The patient does peritoneal dialysis at home and very compliant with dialysis and is also on followup with the renal transplant team. PAST MEDICAL HISTORY: Positive for type 2 diabetes, coronary artery disease, hypertension, anemia, arthritis, and cholelithiasis. PAST SURGICAL HISTORY: Cardiac stent, hysterectomy, cholecystectomy. HOME MEDICATIONS: Dialyvite, carvedilol, calcitriol, Savella, , amlodipine, atorvastatin, aspirin, Protonix, ramipril, QAMARKER] ALLERGIES: NO KNOWN DRUG ALLERGIES. SOCIAL HISTORY: History of smoking and illicit drug abuse in the past. No alcohol use. FAMILY HISTORY: No history of kidney disease. Positive for hypertension. REVIEW OF SYSTEMS: Could not be obtained due to altered mentation. PHYSICAL EXAMINATION: GENERAL: This is a thin-built female who is confused. VITAL SIGNS: Temperature 97.7, pulse 94, respiratory rate 18, blood pressure 138/75. HEENT: Atraumatic, normocephalic. NECK: Supple. CVS: S1, S2 heard. RESPIRATORY: Clear. GI: Abdomen is soft. MUSCULOSKELETAL: 1+ edema. DERMATOLOGIC: No skin rash. NEUROLOGIC: Confused. LABORATORY DATA: Reviewed from outside hospital. Potassium is 5.1. ASSESSMENT AND PLAN: 1. End-stage renal disease. Plan is continue outpatient dialysis as tolerated. 2. Mild hyperkalemia. Limit potassium. 3. Hypertension. Titrate medications. Agree with Cardene drip and titrate. We will remove fluid with dialysis. 4. Slight edema. We will remove fluid. 5. Anemia, monitor. 6. Plan is to continue peritoneal dialysis as tolerated. We will follow. Job ID: [id number]
[2019-02-16] MEDS: Nitroglycerin 2% Ointment 1 INCH/1 GM Packet TOP SCH ×3 (05:03→21:07)
[2019-02-16 06:06] LABS: Hemoglobin 12.7 g/dL (12.0-16.0); Mean Corpuscular HGB CONC 31.6 g/dL (32.0-36.0); Mean Corpuscular Hemoglobin 29.4 pg (27.0-31.0); Mean Corpuscular Volume 92.9 fL (78.0-98.0); Mean Platelet Volume 7.3 fL (7.4-10.4); Platelet Count 334 thou/uL (130-400); RBC Distribution Width 15.4 % (11.5-14.5); Red Blood Cell (RBC) Count 4.33 mill/uL (4.20-5.40); White Blood Cell (WBC) Count 11.5 thou/uL (4.8-10.8)
[2019-02-16 06:08] LABS: Band 1 % (5-11); Eosinophils 4 % (0-10); Lymphocytes 10 % (21-51); MDiff Complete? YES; Monocytes 5 % (0-10); Neutrophil 80 % (42-75)
[2019-02-16 06:17] LABS: ALT (SGPT) 18 U/L (8-55); AST (SGOT) 31 U/L (5-34); Albumin 4.3 g/dL (3.5-5.0); Alkaline Phosphatase 79 U/L (40-150); Anion Gap 18 mmol/L (10-20); BUN (Urea Nitrogen) 58 mg/dL (9.8-20.1); Bilirubin, Total 0.4 mg/dL (0.2-1.2); Calc. Creatinine Clearance 8 mL/min (70-130); Calcium 9.5 mg/dL (7.8-10.44); Carbon Dioxide 21 mmol/L (22-29); Chloride 113 mmol/L (98-107); Estimated GFR-MDRD 7; Globulin 3.5 g/dL (2.4-3.5); Glucose 103 mg/dL (70-105); Potassium 4.9 mmol/L (3.5-5.1); Protein, Total 7.8 g/dL (6.0-8.3); Sodium 147 mmol/L (136-145)
[2019-02-16] MEDS ORDERED: Labetalol HCl 100 MG/20 ML VIAL SLOW IVP PRN (07:58)
[2019-02-16] MEDS: Labetalol HCl 100 MG/20 ML VIAL SLOW IVP PRN ×2 (08:19→15:14)
[2019-02-16] MEDS: niCARdipine HCl 50 MG in Sodium Chloride 0.9% 250 ML 230 ML IVPB SCH (10:18)
--- NOTE | 2019-02-16 11:47 | PRG ---
DATE OF SERVICE: 02/16/2019 SUBJECTIVE: The patient was seen and examined at bedside, nonverbal, does open eyes to verbal commands. OBJECTIVE: GENERAL: This is a well-built female, confused, now with altered mentation. VITAL SIGNS: Temperature 98.8, pulse 88, respiratory rate 18, blood pressure 164/102. NEUROLOGIC: Altered mentation. LABORATORY DATA: Hemoglobin 12.7. Potassium is 4.9, BUN is 58, creatinine is 7.2. ASSESSMENT AND PLAN: 1. End-stage renal disease. We will continue on peritoneal dialysis. 2. Mild hyperkalemia, better. 3. Hypertension, titrate medications, remove fluid with dialysis as tolerated. 4. Edema, controlled. 5. Anemia, monitor hemoglobin. 6. Altered mentation with poor prognosis. Follow with Neurology. 7. We will continue peritoneal dialysis as tolerated. Job ID: [id number]
--- NOTE | 2019-02-16 15:53 | PRG ---
DATE OF SERVICE: 02/16/2019 SUBJECTIVE: Ms. Peacock is still encephalopathic. She will open her eyes and she would not regularly follow commands. OBJECTIVE: VITAL SIGNS: Heart rate 117, blood pressure 174/108, respiratory rates in the teens. LUNGS: Clear. HEART: Regular rhythm. ABDOMEN: Soft and nontender. EXTREMITIES: Without clubbing, cyanosis, or edema. Moves all 4 extremities equally. LABORATORY DATA: White count 11.5, hemoglobin 12.7, platelets 334. Sodium 147, potassium 4.9, chloride 113, bicarb 21, BUN 67, creatinine 7.29. IMPRESSION: New onset seizures of unclear etiology. She has not been febrile, though meningitis seems to be unlikely. encephalitis also would seem to be less likely. If she does not clear, a lumbar puncture would not be unreasonable. Given her hypertension, posterior reversible encephalopathy is a consideration. Per the chief internal auditor, we will continue with peritoneal dialysis. Magnetic resonance imaging was done yesterday, which showed chronic white matter ischemic changes. There was no mention of anything that looks like posterior reversible encephalopathy. There was no contrast given with this MRI presumably because of her renal failure. She is protecting her airway adequately at this time. We will continue to follow. Job ID: [id number]
--- NOTE | 2019-02-16 17:49 | PDOC.PN ---
- Subjective Encounter Start Date: 02/16/19 Encounter Start Time: 12:15 Still encephalopathic. Nurse reports she has followed commands for her. She was able to sit up on the side of the bed briefly today. - Objective Vital Signs & Weight: Vital Signs (12 hours) Temp Pulse Pulse Pulse BP BP BP 02/16/19 15:37 99.7 F H 02/16/19 15:14 117 H 174/108 H 02/16/19 12:00 98.7 F 02/16/19 10:55 97 171/106 H 02/16/19 10:00 94 91 165/102 H 162/110 H 02/16/19 08:19 109 H 179/98 H 02/16/19 08:00 98.8 F Pulse Ox Pulse Ox Pulse Ox 02/16/19 15:37 02/16/19 15:14 02/16/19 12:00 02/16/19 10:55 02/16/19 10:00 92 L 100 02/16/19 08:19 02/16/19 08:00 99 Weight Weight 128 lb 1.417 oz Most Recent Monitor Data Heart Rate from ECG 108 NIBP 162/109 NIBP BP-Mean 126 Respiration from ECG 16 SpO2 99 I&O: 02/15/19 02/16/19 02/17/19 06:59 06:59 06:59 Intake Total 438 90.4 Output Total 502 402 Balance -64 -311.6 Result Diagrams: 02/16/19 05:41 02/16/19 05:41 Additional Labs: Accuchecks 02/16/19 02/16/19 02/16/19 15:46 09:59 04:19 POC Glucose 120 H 120 H 107 02/15/19 21:06 POC Glucose 117 H Phys Exam - Physical Examination Constitutional: NAD Respiratory: no wheezing, no rales, no rhonchi Cardiovascular: RRR, no significant murmur Gastrointestinal: soft, non-tender, no distention, positive bowel sounds Musculoskeletal: no edema Neurological: non-focal Deviation from normal: Globally encephalopathic. Dx/Plan (1) Seizure Code(s): R56.9 - UNSPECIFIED CONVULSIONS Status: Acute (2) Hypertensive encephalopathy syndrome Code(s): I67.4 - HYPERTENSIVE ENCEPHALOPATHY Status: Acute (3) CAD (coronary artery disease) Code(s): I25.10 - ATHSCL HEART DISEASE OF [place] CORONARY ARTERY W/O ANG PCTRS Status: Chronic Qualifiers: Comment: prior h/o 4 stents placed by (4) COPD (chronic obstructive pulmonary disease) Status: Chronic (5) Dyslipidemia Code(s): E78.5 - HYPERLIPIDEMIA, UNSPECIFIED Status: Chronic (6) HTN (hypertension) Code(s): I10 - ESSENTIAL (PRIMARY) HYPERTENSION Status: Chronic Qualifiers: (7) Acute metabolic encephalopathy Code(s): G93.41 - METABOLIC ENCEPHALOPATHY Status: Resolved (8) ESRD (end stage renal disease) on dialysis Code(s): N18.6 - END STAGE RENAL DISEASE; Z99.2 - DEPENDENCE ON RENAL DIALYSIS Status: Acute - Plan * On Cardene gtt with additional PRN's for BP. * Neuro consult pending. * Pulm CC consulted. * May have hypertensive encephalopathy or post-ictal state. * Son told nurse they were unaware of any history of seizures. * Loaded with KePrixelra. * Agree with Dr. Bobo that PRES is a possibility. * Continue PD per nephrology.
[2019-02-16] MEDS ORDERED: Famotidine/PF 20 mg/2ml Vial SLOW IVP SCH (21:00)
[2019-02-17] MEDS: Labetalol HCl 100 MG/20 ML VIAL SLOW IVP PRN ×2 (00:04→04:11)
[2019-02-17 05:02] LABS: Band 2 % (5-11); Eosinophils 2 % (0-10); Hemoglobin 13.7 g/dL (12.0-16.0); Lymphocytes 8 % (21-51); MDiff Complete? YES; Mean Corpuscular HGB CONC 31.2 g/dL (32.0-36.0); Mean Corpuscular Hemoglobin 29.4 pg (27.0-31.0); Mean Corpuscular Volume 94.2 fL (78.0-98.0); Mean Platelet Volume 7.3 fL (7.4-10.4); Monocytes 6 % (0-10); Neutrophil 82 % (42-75); Platelet Count 357 thou/uL (130-400); Platelet Morphology Comment Appears Adequate; Red Blood Cell (RBC) Count 4.67 mill/uL (4.20-5.40); White Blood Cell (WBC) Count 12.6 thou/uL (4.8-10.8)
[2019-02-17] MEDS: Nitroglycerin 2% Ointment 1 INCH/1 GM Packet TOP SCH ×3 (05:05→21:11)
[2019-02-17 05:18] LABS: ALT (SGPT) 18 U/L (8-55); AST (SGOT) 23 U/L (5-34); Albumin 4.5 g/dL (3.5-5.0); Alkaline Phosphatase 87 U/L (40-150); Anion Gap 20 mmol/L (10-20); BUN (Urea Nitrogen) 56 mg/dL (9.8-20.1); Bilirubin, Total 0.5 mg/dL (0.2-1.2); Calc. Creatinine Clearance 8 mL/min (70-130); Calcium 9.9 mg/dL (7.8-10.44); Carbon Dioxide 19 mmol/L (22-29); Chloride 114 mmol/L (98-107); Estimated GFR-MDRD 7; Globulin 3.6 g/dL (2.4-3.5); Glucose 167 mg/dL (70-105); Potassium 4.2 mmol/L (3.5-5.1); Protein, Total 8.1 g/dL (6.0-8.3); Sodium 149 mmol/L (136-145)
--- NOTE | 2019-02-17 10:14 | PRG ---
DATE OF SERVICE: 02/17/2019 SUBJECTIVE: Jyoti Peacock is still encephalopathic. She is nonverbal. She will say ouch to a sternal rub. She spontaneously moves all her extremities. OBJECTIVE: VITAL SIGNS: She is afebrile, heart rate is 108, blood pressure 156/102 on a Cardene drip, respiratory rate 15, oximetry is 99. LUNGS: Clear. HEART: Regular rhythm. ABDOMEN: Soft. EXTREMITIES: Without edema. Intake and outputs, negative 368. IMPRESSION: 1. Encephalopathy of unclear etiology. EEG per my discussion with the prepress technician showed no seizure activity. 2. New onset seizures prior to admission. 3. History of hypertension. Her MRI did not show PRES, but it was an MRI without contrast. 4. History of coronary artery disease. 5. Reported history of obstructive lung disease with no wheezing at this time. 6. Lipid disorder. 7. End-stage renal disease, on dialysis. She needs to start with some trickle feeds of Nepro at 20 mL/hour. We need to keep her head of her bed elevated. She will remain in critical care unit for now. Job ID: [id number]
--- NOTE | 2019-02-17 10:23 | RAD ---
EXAM: XR Abdomen 1 View/KUB PROVIDED CLINICAL HISTORY: Evaluate placement of Dobbhoff feeding tube. COMPARISON: None FINDINGS: There is a Dobbhoff feeding tube noted in place with the tip overlying the lateral left upper quadran t in the region of the proximal body of the stomach. Visualized upper abdomen demonstrates nonspecific bowel gas pattern. There is a punctate metallic density overlying the L2 vertebral body c entrally of uncertain etiology. IMPRESSION: 1. Dobbhoff feeding tube noted in place with tip overlying expected location of proximal body of the stomach. 2. Tiny metallic density overlying the region of the L2 vertebral body of uncertain etiology. Evaluat ion for overlying artifact is suggested, and follow-up views of the abdomen can be performed.
[2019-02-17] MEDS: niCARdipine HCl 50 MG in Sodium Chloride 0.9% 250 ML 230 ML IVPB SCH (10:39)
[2019-02-17] MEDS ORDERED: cloNIDine 0.3 MG TAB PER TUBE SCH (11:00)
[2019-02-17] MEDS ORDERED: Carvedilol 25 MG TAB PO SCH (11:00)
[2019-02-17 11:25] VITALS: BMI 18.7
[2019-02-17] MEDS: hydrALAZINE 25 MG TAB PER TUBE SCH ×2 (14:39→21:12)
[2019-02-17] MEDS ORDERED: hydrALAZINE 25 MG TAB PER TUBE SCH (15:00)
[2019-02-17] MEDS ORDERED: Amlodipine 10 MG TAB PO SCH (15:30)
--- NOTE | 2019-02-17 17:16 | PRG ---
DATE OF SERVICE: 02/17/2019 SUBJECTIVE: The patient was seen and examined in ICU. OBJECTIVE: GENERAL: This is a thin-built female, confused. VITAL SIGNS: Temperature 98.4, pulse 104, respiratory rate 14, and blood pressure 163/106. LABORATORY DATA: Potassium 4.2, BUN is 56, and creatinine is 7.6. ASSESSMENT AND PLAN: 1. End-stage renal disease. We will continue on peritoneal dialysis. 2. Edema, controlled. 3. Hypertension. Better titrate medications. 4. Metabolic acidosis. 5. Hypernatremia. 6. Hypertension. 7. Anemia. We will monitor. 8. Altered mentation hypertensive encephalopathy. Plan is to monitor. We will follow closely. Job ID: [id number]
--- NOTE | 2019-02-17 20:00 | PDOC.PN ---
- Subjective Encounter Start Date: 02/17/19 Encounter Start Time: 13:20 A little more awake today. Nurse reports she was able to give her name. Wakes a bit for me. Still not verbal. - Objective Vital Signs & Weight: Vital Signs (12 hours) Temp Pulse BP 02/17/19 16:00 98.4 F 02/17/19 15:48 98 164/109 H 02/17/19 14:39 98 164/109 H 02/17/19 11:32 98.5 F 02/17/19 11:10 166/108 H Weight Admit Weight 133 lb 6.075 oz Weight 123 lb 7.342 oz Most Recent Monitor Data Heart Rate from ECG 103 NIBP 150/104 NIBP BP-Mean 119 Respiration from ECG 21 SpO2 100 I&O: 02/16/19 02/17/19 02/18/19 06:59 06:59 06:59 Intake Total 438 364.4 747 Output Total 502 733 165 Balance -64 -368.6 582 Result Diagrams: 02/17/19 04:19 02/17/19 04:19 Additional Labs: Accuchecks 02/17/19 02/17/19 02/17/19 16:10 10:05 06:40 POC Glucose 125 H 116 H 120 H 02/16/19 21:15 POC Glucose 210 H Phys Exam - Physical Examination Constitutional: NAD Respiratory: no wheezing, no rales, no rhonchi, clear to auscultation bilateral Cardiovascular: RRR, no significant murmur Gastrointestinal: soft, non-tender, no distention, positive bowel sounds Musculoskeletal: no edema Encephalopathic. Will awaken. Tries to mouth words, but not verbal. Dx/Plan (1) Seizure Code(s): R56.9 - UNSPECIFIED CONVULSIONS Status: Acute (2) Hypertensive encephalopathy syndrome Code(s): I67.4 - HYPERTENSIVE ENCEPHALOPATHY Status: Acute (3) CAD (coronary artery disease) Code(s): I25.10 - ATHSCL HEART DISEASE OF [place] CORONARY ARTERY W/O ANG PCTRS Status: Chronic Qualifiers: Comment: prior h/o 4 stents placed by (4) COPD (chronic obstructive pulmonary disease) Status: Chronic (5) Dyslipidemia Code(s): E78.5 - HYPERLIPIDEMIA, UNSPECIFIED Status: Chronic (6) HTN (hypertension) Code(s): I10 - ESSENTIAL (PRIMARY) HYPERTENSION Status: Chronic Qualifiers: (7) Acute metabolic encephalopathy Code(s): G93.41 - METABOLIC ENCEPHALOPATHY Status: Resolved (8) ESRD (end stage renal disease) on dialysis Code(s): N18.6 - END STAGE RENAL DISEASE; Z99.2 - DEPENDENCE ON RENAL DIALYSIS Status: Acute - Plan * New seizures with encephalopathy and severe HTN. * Off the Cardene gtt. Still with PRN's. * Unclear if she may have had intoxication, withdrawal or hypertensive encephalopathy with seizures. * Was positive for opioids. * Continue supportive care, hydration, nutritional support. Subtle improvement today. * IV Keppra. * Neuro consult pending. * Continue PD
[2019-02-17] MEDS: Famotidine 20 MG TAB PO SCH (21:12)
[2019-02-17] MEDS: cloNIDine 0.3 MG TAB PER TUBE SCH (21:12)
--- NOTE | 2019-02-17 21:18 | CON ---
DATE OF TELEMEDICINE CONSULTATION ARIK ZAMBRANO 02-17-19 HISTORY OF PRESENT ILLNESS: The patient was unable to provide any medical history. Most of the history was obtained from the nurse as well as from the chart. The patient has been admitted to the ICU with altered mental status and questionable seizures. She is still currently in the ICU and she has remained encephalopathic. Per nurse, yesterday she was doing better as far as her mental status and she started to interact somewhat and was able to obey commands since yesterday. This morning, she was more sleepy. The patient has history of end-stage renal disease, she is on peritoneal dialysis, history of chronic anemia, hypertension. She also has history of opiate abuse. Currently, Narcan was not given because of her renal impairment. The patient was found to be very hypertensive on arrival to the ER with the systolics as high as 220, diastolics 110. The patient has not had any witnessed seizures since admission to ICU. She is mostly obtunded and today she is having to be woken up with sternal rub. Yesterday, she was spontaneously able to open eyes when her name was called. PREVIOUS MEDICAL HISTORY: Diabetes type 2, [place] in 2009, hypertension, anemia, arthritis, and gallstone. PAST SURGICAL HISTORY: Coronary artery disease with stent surgery, with four stents, hysterectomy, cholecystectomy. SOCIAL HISTORY: She uses marijuana and opiate, former tobacco user. ALLERGIES: NO KNOWN DRUG ALLERGIES. FAMILY HISTORY: Hypertension in her father. REVIEW OF SYSTEMS: Unobtainable. LABORATORY DATA: Her current lab workup; white count 12.6, hemoglobin 13.7, hematocrit 44, platelet count 357. Chemistry; sodium 149, potassium 4.2, chloride 114, BUN 56, creatinine 7.6, glucose 167. Urinalysis is negative. Apparently outside urine was positive for opiates. Her current MRI of the brain from February 15 showed very mild atrophy and chronic white matter ischemic changes. No mass or bleed. No acute infarct. PHYSICAL EXAMINATION: VITAL SIGNS: Blood pressure was 160/99, pulse rate was 115. The patient is afebrile, temperature was 98. GENERAL APPEARANCE: Well-built, well-nourished lady, who seems to be sleepy and sedated and then woken up with sternal rub. She opens her eyes. She was able to talk to our RN and give him her name, was able to follow simple commands. CHEST: Clear vesicular breathing. CARDIOVASCULAR: S1, S2 heard. No murmurs. ABDOMEN: Soft. NEUROLOGICAL: As noted above. She was sleepy, then woken up. She was able to interact and obey commands. She was able to state her name. Cranial nerves, pupils were 4 mm reactive. No facial asymmetry noted. Motor examination, she was able to move all 4 extremities, but a full motor strength exam was not possible. Deep tendon reflexes were absent. Sensory and cerebellar were difficult to examine. IMPRESSION: The patient is a 53-year-old lady with end-stage renal disease and diabetes. She is on peritoneal dialysis. The patient has been obtunded and brought in for possible seizure activity. She has been given Keppra and Cerebyx. The patient does not have known seizures in the past. Her current examination shows a slightly sleepy patient who needs to be woken up with sternal rub and can follow simple commands. EEG was reviewed and the EEG does not show any active seizure activity, mostly chaotic with EMG artifact and she was having tremor yesterday, and she also had encephalopathic background of the EEG. We did not observe any tremor today. I am not sure if she is having some kind of drug withdrawal versus delayed clearing of her opiates from her system, which is causing encephalopathy. RECOMMENDATIONS: Please monitor for changes in neurological status. If she is actively seizing, please call Neurology. I will follow up again tomorrow with you. Job ID: [id number] [facility]
[2019-02-17] MEDS: Carvedilol 25 MG TAB PER TUBE SCH (21:21)
[2019-02-18 05:22] LABS: ALT (SGPT) 18 U/L (8-55); AST (SGOT) 20 U/L (5-34); Albumin 3.9 g/dL (3.5-5.0); Alkaline Phosphatase 83 U/L (40-150); Anion Gap 18 mmol/L (10-20); BUN (Urea Nitrogen) 62 mg/dL (9.8-20.1); Bilirubin, Total 0.3 mg/dL (0.2-1.2); Calc. Creatinine Clearance 7 mL/min (70-130); Calcium 9.2 mg/dL (7.8-10.44); Carbon Dioxide 20 mmol/L (22-29); Chloride 111 mmol/L (98-107); Estimated GFR-MDRD 7; Globulin 3.2 g/dL (2.4-3.5); Glucose 141 mg/dL (70-105); Potassium 4.1 mmol/L (3.5-5.1); Protein, Total 7.1 g/dL (6.0-8.3); Sodium 145 mmol/L (136-145)
[2019-02-18 05:25] LABS: Band 2 % (5-11); Eosinophils 6 % (0-10); Hemoglobin 12.4 g/dL (12.0-16.0); Lymphocytes 8 % (21-51); MDiff Complete? YES; Mean Corpuscular Hemoglobin 29.7 pg (27.0-31.0); Mean Corpuscular Volume 95.8 fL (78.0-98.0); Mean Platelet Volume 7.2 fL (7.4-10.4); Monocytes 8 % (0-10); Neutrophil 76 % (42-75); Platelet Count 285 thou/uL (130-400); Platelet Morphology Comment Appears Adequate; RBC Distribution Width 14.7 % (11.5-14.5); RBC Morphology Normal; Red Blood Cell (RBC) Count 4.16 mill/uL (4.20-5.40); White Blood Cell (WBC) Count 12.2 thou/uL (4.8-10.8)
[2019-02-18] MEDS: Nitroglycerin 2% Ointment 1 INCH/1 GM Packet TOP SCH ×4 (05:32→20:43)
[2019-02-18] MEDS: hydrALAZINE 25 MG TAB PER TUBE SCH (08:40)
[2019-02-18] MEDS: cloNIDine 0.3 MG TAB PER TUBE SCH (08:41)
[2019-02-18] MEDS: Carvedilol 25 MG TAB PER TUBE SCH (08:41)
[2019-02-18] MEDS: Amlodipine 10 MG TAB PO SCH (08:42)
--- NOTE | 2019-02-18 09:50 | PRG ---
DATE OF SERVICE: 02/18/2019 SUBJECTIVE: This morning awake, alert, responsive, back to her baseline. She is swallowing ice without problem. Awaiting for Speech. If she passes it, Dobhoff will be removed. OBJECTIVE: VITAL SIGNS: Pulse 95, blood pressure 140/80, respiratory rate 19. CHEST: Decreased breath sounds. No wheezing. CARDIAC: Normal S1 and S2. No gallops. ABDOMEN: No masses. LABORATORY DATA: Creatinine 7.7. IMPRESSION: 1. Metabolic encephalopathy, improved. 2. Dysphagia, improved. 3. Hypertension. 4. Chronic renal failure. PLAN: Continue peritoneal dialysis. Discontinue Dobhoff, if she passes swallow test. She will be transferred out of the ICU. Job ID: [id number]
--- NOTE | 2019-02-18 12:13 | PRG ---
DATE OF SERVICE: 02/18/2019 SUBJECTIVE: Patient was seen and examined at bedside and overnight events noted. Patient denies any shortness of breath or chest pain or palpitation. No history of nausea or vomiting or diarrhea or fever or chills or cramps. OBJECTIVE: GENERAL: This is a well-built female, in no acute distress. VITAL SIGNS: Temperature 98.4. Heart rate 91. Respiratory rate 20. Blood pressure 106/79. HEENT: Atraumatic, normocephalic. Oral mucosa is moist NECK: Supple. CARDIOVASCULAR: S1, S2 heard. Rate and rhythm regular. RESPIRATORY: Clear to auscultation. GASTROINTESTINAL: Abdomen is soft. MUSCULOSKELETAL: No tenderness. No edema. DERMATOLOGIC: No skin rash. NEUROLOGIC: Alert and awake and oriented X3. No focal neurologic deficits. Moving all the extremities. PSYCHIATRIC: Mood and affect normal. LABORATORY DATA: Potassium 4.1, BUN is 62, and creatinine is 7.7. ASSESSMENT AND PLAN: 1. End-stage renal disease. Continue on peritoneal dialysis as tolerated. 2. Edema. 3. Hypernatremia, better. 4. Hypertension. 5. Anemia. Plan: The patient is more alert today and continue PD as tolerated. Job ID: [id number]
[2019-02-18] MEDS: hydrALAZINE 25 MG TAB PO SCH ×3 (14:28→20:42)
--- NOTE | 2019-02-18 15:20 | PDOC.PN ---
- Subjective Encounter Start Date: 02/18/19 Encounter Start Time: 11:45 Doing better today. talking. Denies any problems. Confirms she has never had seizures before. Eating well. No swallowing issues. - Objective Vital Signs & Weight: Vital Signs (12 hours) Temp Pulse BP Pulse Ox 02/18/19 14:28 75 117/80 02/18/19 11:00 97.5 F L 02/18/19 08:42 107 H 159/108 H 02/18/19 08:41 159/108 H 02/18/19 08:40 107 H 159/108 H 02/18/19 08:00 95 02/18/19 07:00 98.4 F 02/18/19 04:00 98.4 F Weight Admit Weight 133 lb 6.075 oz Weight 124 lb 1.924 oz Most Recent Monitor Data Heart Rate from ECG 74 NIBP 122/83 NIBP BP-Mean 96 Respiration from ECG 16 SpO2 99 I&O: 02/17/19 02/18/19 02/19/19 06:59 06:59 06:59 Intake Total 364.4 1474 610 Output Total 733 460 35 Balance -368.6 1014 575 Result Diagrams: 02/18/19 04:50 02/18/19 04:50 Additional Labs: Accuchecks 02/18/19 02/18/19 02/17/19 09:56 06:31 21:16 POC Glucose 103 95 143 H 02/17/19 16:10 POC Glucose 125 H Phys Exam - Physical Examination Constitutional: NAD Respiratory: no wheezing, no rales, no rhonchi Cardiovascular: RRR, no significant murmur, no rub Gastrointestinal: soft, non-tender Musculoskeletal: no edema Neurological: non-focal Psychiatric: normal affect Dx/Plan (1) Seizure Code(s): R56.9 - UNSPECIFIED CONVULSIONS Status: Acute (2) Hypertensive encephalopathy syndrome Code(s): I67.4 - HYPERTENSIVE ENCEPHALOPATHY Status: Acute (3) CAD (coronary artery disease) Code(s): I25.10 - ATHSCL HEART DISEASE OF [place] CORONARY ARTERY W/O ANG PCTRS Status: Chronic Qualifiers: Comment: prior h/o 4 stents placed by (4) COPD (chronic obstructive pulmonary disease) Status: Chronic (5) Dyslipidemia Code(s): E78.5 - HYPERLIPIDEMIA, UNSPECIFIED Status: Chronic (6) HTN (hypertension) Code(s): I10 - ESSENTIAL (PRIMARY) HYPERTENSION Status: Chronic Qualifiers: (7) Acute metabolic encephalopathy Code(s): G93.41 - METABOLIC ENCEPHALOPATHY Status: Resolved (8) ESRD (end stage renal disease) on dialysis Code(s): N18.6 - END STAGE RENAL DISEASE; Z99.2 - DEPENDENCE ON RENAL DIALYSIS Status: Acute - Plan * encephalopathy appears to be largely resolved. * Transfer to floor. * Get her up and moving. * Oral Keppra. * Possibly home tomorrow. * BP vastly improved.
--- NOTE | 2019-02-18 18:01 | PRG ---
DATE OF TELEMEDICINE SERVICE ARIK ZAMBRANO: 02/18/2019 CHIEF COMPLAINT: Altered mental status. INTERVAL HISTORY: The patient altered mental status has resolved. She is sitting up in bed and talking today and no seizures or any such events were noted. LABORATORY WORK: White count 12.2, hemoglobin 12.4, hematocrit 39.9, platelet count 285. Chemistry; sodium 145, potassium 4.1, chloride 111, bicarb 20, anion gap 18, BUN 62, creatinine 7.77, glucose 141. PHYSICAL EXAMINATION: VITAL SIGNS: Her blood pressure was 142/93, pulse was 90. She was afebrile at 98.4 temperature. NEUROLOGICAL: Higher intellectual function. She is oriented to time, place, and person, and had appropriate conversation. Cranial nerves, normal extraocular movements. Tongue midline. No facial asymmetry. Motor, bulk normal, tone normal. Strength 5/5 throughout in both upper and lower extremities. IMPRESSION: The patient with suspected seizures and encephalopathy. The patient reported to me that she does take hydrocodone on a daily basis and it is not clear to me what other pain medications she has been taking. This encephalopathy is likely metabolic encephalopathy, multifactorial in nature, she has on peritoneal dialysis as well. RECOMMENDATION: Please continue Keppra. I doubt these were seizures. The patient never had history of seizures. She will need further evaluation as outpatient by Dr. Kahn and at this time, there is no further neurological investigation plan. Call me if you have any further questions. Job ID: [id number] MTDD
[2019-02-18] MEDS: Carvedilol 25 MG TAB PO SCH (20:41)
[2019-02-18] MEDS: cloNIDine 0.3 MG TAB PO SCH (20:41)
[2019-02-18] MEDS: Famotidine 20 MG TAB PO SCH (20:42)
[2019-02-18] MEDS: levETIRAcetam 500 MG TAB PO SCH (20:43)
[2019-02-19] MEDS: Nitroglycerin 2% Ointment 1 INCH/1 GM Packet TOP SCH ×2 (05:16→14:24)
[2019-02-19 06:16] LABS: Band 1 % (5-11); Elliptocytes SLIGHT = 2-5 cells (100X) (0-1/hpf); Eosinophils 4 % (0-10); Hemoglobin 10.8 g/dL (12.0-16.0); Lymphocytes 10 % (21-51); MDiff Complete? YES; Mean Corpuscular HGB CONC 31.3 g/dL (32.0-36.0); Mean Corpuscular Hemoglobin 29.6 pg (27.0-31.0); Mean Corpuscular Volume 94.8 fL (78.0-98.0); Mean Platelet Volume 7.2 fL (7.4-10.4); Monocytes 13 % (0-10); Neutrophil 72 % (42-75); Platelet Count 244 thou/uL (130-400); Platelet Morphology Comment Appears Adequate; RBC Distribution Width 13.8 % (11.5-14.5); Red Blood Cell (RBC) Count 3.65 mill/uL (4.20-5.40); White Blood Cell (WBC) Count 8.5 thou/uL (4.8-10.8)
[2019-02-19 06:21] LABS: ALT (SGPT) 21 U/L (8-55); AST (SGOT) 22 U/L (5-34); Albumin 3.5 g/dL (3.5-5.0); Alkaline Phosphatase 73 U/L (40-150); Anion Gap 18 mmol/L (10-20); BUN (Urea Nitrogen) 51 mg/dL (9.8-20.1); Bilirubin, Total 0.4 mg/dL (0.2-1.2); Calc. Creatinine Clearance 9 mL/min (70-130); Carbon Dioxide 21 mmol/L (22-29); Chloride 104 mmol/L (98-107); Estimated GFR-MDRD 8; Globulin 2.8 g/dL (2.4-3.5); Glucose 90 mg/dL (70-105); Potassium 3.6 mmol/L (3.5-5.1); Protein, Total 6.3 g/dL (6.0-8.3); Sodium 139 mmol/L (136-145)
[2019-02-19] MEDS: levETIRAcetam 500 MG TAB PO SCH (08:06)
[2019-02-19] MEDS: hydrALAZINE 25 MG TAB PO SCH ×2 (08:06→14:35)
[2019-02-19] MEDS: Carvedilol 25 MG TAB PO SCH (08:06)
[2019-02-19] MEDS: Amlodipine 10 MG TAB PO SCH (08:07)
[2019-02-19] MEDS: cloNIDine 0.3 MG TAB PO SCH (09:24)
[2019-02-19] MEDS ORDERED: Clopidogrel Bisulfate 75 MG TAB ONE (09:28)
--- NOTE | 2019-02-19 10:54 | PRG ---
DATE OF SERVICE: 02/19/2019 SUBJECTIVE: Jyoti Peacock was transferred out of the ICU yesterday. OBJECTIVE: VITAL SIGNS: Saturations are 98% on room air, respiratory rate 16, blood pressure 130/86, temperature 98. CHEST: No wheezing or crackles. CARDIAC: Normal S1 and S2. No gallops. ABDOMEN: No masses. LABORATORY AND DIAGNOSTIC DATA: Creatinine is 6.9, BUN is 51. ASSESSMENT: 1. Chronic renal failure. 2. Encephalopathy, metabolic. 3. Status post seizures. 4. Status post respiratory failure. PLAN: Pulmonary cazares, she can be discharged home and followed by primary care physician. They recommended to continue Keppra even though EEG was negative. Job ID: [id number]
--- NOTE | 2019-02-19 11:43 | PRG ---
DATE OF SERVICE: SUBJECTIVE: Patient was seen and examined at bedside and overnight events noted. Patient denies any shortness of breath or chest pain or palpitation. No history of nausea or vomiting or diarrhea or fever or chills or cramps. OBJECTIVE: GENERAL: This is a well-built female, in no apparent distress. VITAL SIGNS: Temperature 98.0. Heart rate . Respiratory rate 16. Blood pressure 138/86. HEENT: Atraumatic, normocephalic. Oral mucosa is moist NECK: Supple. CARDIOVASCULAR: S1, S2 heard. Rate and rhythm regular. RESPIRATORY: Clear to auscultation. GASTROINTESTINAL: Abdomen is soft. MUSCULOSKELETAL: No tenderness. No edema. DERMATOLOGIC: No skin rash. NEUROLOGIC: Alert and awake and oriented X3. No focal neurologic deficits. Moving all the extremities. PSYCHIATRIC: Mood and affect normal. LABORATORY DATA: Potassium is 3.6, BUN is 51, creatinine is 6.9. ASSESSMENT AND PLAN: 1. End-stage renal disease. Continue on peritoneal dialysis. 2. Edema, controlled. 3. Hypertension. 4. Anemia. 5. Hypernatremia, better. 6. Overall labs are better. We will follow. Job ID: [id number]
[2019-02-19 16:53] VITALS: BP 133/86; TEMP 97.9
--- NOTE | 2019-02-20 01:39 | DIS ---
DATE OF ADMISSION: 02/15/2019 DATE OF DISCHARGE: 02/19/2019 DISCHARGE DIAGNOSES: 1. Metabolic encephalopathy. 2. Opioid positivity. 3. Coronary artery disease. 4. Chronic obstructive pulmonary disease. 5. Hypertension. 6. Dyslipidemia. 7. End-stage renal disease, on peritoneal dialysis. HISTORY OF PRESENT ILLNESS: The patient is a 53-year-old female, who originally presented via the emergency department. The patient was apparently found by the family members on the floor, having some involuntary movement that they believed were seizures. The patient was given Ativan and Narcan at the outside emergency department in [place]. She was noted to have a blood sugar of 128, temp of 99.2, and she was subsequently transferred to this facility. Here, the patient's blood pressure was 207/131 in the emergency department. She was started on a Cardene drip and loaded with fosphenytoin. The patient remained encephalopathic. HOSPITAL COURSE: The patient was admitted to the ICU with obtunded, altered mental status, hypertensive urgency. She remained on the Cardene drip. She had an MRI of the brain, which showed very mild atrophy, chronic white matter ischemic changes , but no acute infarct. She had consultations by Nephrology to maintain the patient on peritoneal dialysis. She was also seen by Pulmonary Critical Care. She had a Dobhoff tube placed and feeds started. She had consultation by Neurology and was maintained on IV antiepileptics. Ultimately, the patient's mental status gradually and then more rapidly improved to the point that she was fully awake and conscious. She was transferred to the medical floor and ultimately was able to get up and ambulate without difficulties. Neurology felt on followup that the patient likely had not had seizures given that we were able to clarify that she did not in fact have any prior seizure history. In the end, it was not clear what caused the patient's encephalopathy, although it was felt that the opioid positivity may have had some relationship to it whether she was encephalopathic from drugs or from withdrawing from others, is not known. Her blood pressure did dramatically improve as her mental status cleared and she ultimately did not require any additional medications. PHYSICAL EXAMINATION: On the day of discharge: VITAL SIGNS: Temperature was 98.1, pulse 91, BP 142/92, respirations 16, and O2 saturation 99% on room air. GENERAL: She was fully awake and alert, conversant, getting up and ambulating without difficulty, eating and having no difficulty swallowing. HEART: Regular rate and rhythm. LUNGS: Clear bilaterally. ABDOMEN: Benign. NEUROLOGIC: She had no deficits. DISPOSITION: The patient is discharged home. ACTIVITY: As tolerated. DIET: She will be on a renal diet. DISCHARGE MEDICATIONS: She will be on: 1. ProAir HFA 2 puffs p.r.n. 2. Atorvastatin 80 mg daily. 3. Ezetimibe 10 mg at bedtime. 4. Ramipril 5 mg daily. 5. Amlodipine 10 mg daily. 6. Aspirin 81 mg daily. 7. Pantoprazole 40 mg daily. 8. Benadryl p.r.n. 9. Sertraline 12.5 daily. 10. Carvedilol 25 mg b.i.d. 11. Calcitriol daily. 12. Klonopin 0.5 mg at bedtime. 13. Sevelamer 2400 mg t.i.d. with meals. 14. Clonidine 0.3 mg b.i.d. 15. Hydralazine 100 mg t.i.d. 16. Dialyvite 800 one p.o. daily. FOLLOWUP: She is to follow up with Dr. Jauregui in [place], Dr. Yoel Padgett , and Dr. Toussaint. She can return to the hospital should she have any problems prior to the time of her discharge. Time spent in discharge activities, including face to face time with the patient , was 32 minutes. Job ID: [id number] MTDD
--- NOTE | 2019-02-20 16:31 | EEG ---
Referring Physician: Edwige GRAHAM EEG # [id number] TEST TYPE: ROUTINE PORTABLE INPATIENT REPORT: AN EEG USING THE [employer]NATIONAL TEN-TWENTY SYSTEM OF ELECTRODE PLACEMENT WAS PERFORMED. The best waking background is a medium amplitude 6 hertz Theta frequency. There are frequent sharp and slow wave discharges noted. At times they appear to have a right sided predominance. One one occasion she had some sustained generalized 2 hertz sharp and slow wave activity. Photic stimulation was unremarkable. IMPRESSION: THIS IS AN ABNORMAL STUDY FOR THE FINDINGS OF DIFFUSE SLOWING AND PERIODIC SUBCLINICAL SEIZURE ACTIVITY WITH POSSIBLE RIGHT SIDED PREDOMINANCE. Juvenile Counselor: KLAUS Case Mgr: EEG.BRIANA LUGO
--- NOTE | 2019-02-21 04:28 | PQF ---
ANTON SANCHEZ DAVID R MD [id number] CLINICAL DOCUMENTATION CLARIFICATION FORM: POST DISCHARGE Addendum to original discharge summary date: ____ Late entry note date: 02/24/2019 DATE: 02-20-19 ATTN: Kenji Castanon Please exercise your independent, professional judgment in responding to the clarification form. Clinical indicators are provided on the bottom of this form for your review Based on your clinical judgment can you please specify the etiology of patient s Metabolic Encephalopathy? Please check appropriate box(s): [ ] Metabolic Encephalopathy d/t prescribed opioid medication [ ] Metabolic Encephalopathy d/t not prescribed opioid medication [ ] Metabolic Encephalopathy d/t withdrawal from other drugs [ ] Metabolic Encephalopathy d/t hypertensive urgency [ x ] Metabolic Encephalopathy, unknown etiology [ ] Other diagnosis please specify: [ ] Unable to determine For continuity of documentation, please document condition throughout progress notes and discharge summary. Thank You. CLINICAL INDICATORS - SIGNS / SYMPTOMS / LABS DS pg2 02/19 Dr. Castanon -In the end, it was not clear what caused the patient' s encephalopathy, although it was felt that the opioid positivity may have had some relationship to it whether she was encephalopathic from drugs or from withdrawing from others, is not known PN pg1 02/18 Dr. Pratt-the patient reported to me that she does take hydrocodone on a daily basis and it is not clear to me what other pain medications she has been taking. PN pg1 02/19 Dr. Marcos -recommended to continue Keppra even though EEG was negative PN pg3 02/17 Dr. Castanon-Unclear if she may have had intoxication, withdrawal or hypertensive encephalopathy with seizures PN pg1 02/18 Dr. Pratt-the patient reported to me that she does take hydrocodone on a daily basis and it is not clear to me what other pain medications she has been taking. PN pg1 02/19 Dr. Marcos- recommended to continue Keppra even though EEG was negative PN pg3 02/17 Dr. Castanon-Unclear if she may have had intoxication, withdrawal or hypertensive encephalopathy with seizures PN pg3 02/17 Dr. Castanon-was positive for opioids RISK FACTORS Encephalopathy-DS pg2 02/19 Dr. Castanon Hypertensive urgency-H&P pg1 02/15 Dr. Hdz ESRD-DS pg2 02/19 Dr. Castanon Hypertension-DS pg2 02/19 Dr. Castanon TREATMENTS: Neurology Consult-Consult 02/19 Dr. Pratt EEG-Electrophysiology report 02/20 Dr. Padgett MRI-MRI 02/15 Dr. Salvador Lorazepam 1mg IV-OCT 26 IV fluids-OCT 26 (This form is maintained as a part of the permanent medical record) 2014 [employer]. All Rights Reserved [email or web address] ([email or web address]) [not provided] MTDD
== END 2019-02-19 17:34 | disposition home or self-care (01) | DRG 70 ==
LOC: ERS 13:36 → CCU 16:46 → T4-A 02-19 04:17
PROVIDERS: ADMIT Internal Medicine; ATTEND Internal Medicine
PROC: 3E1M39Z Irrigation of Peritoneal Cavity using Dialysate, Percutaneous Approach (ICD-10-PCS; principal; 2019-02-15)
DX: G93.41 Metabolic encephalopathy (principal); N18.6 End stage renal disease; I12.0 Hypertensive chronic kidney disease with stage 5 chronic kidney disease or end stage renal disease; E87.2 Acidosis; E87.0 Hyperosmolality and hypernatremia; E87.6 Hypokalemia; I16.0 Hypertensive urgency; D63.1 Anemia in chronic kidney disease; E11.22 Type 2 diabetes mellitus with diabetic chronic kidney disease; F41.9 Anxiety disorder, unspecified; M19.90 Unspecified osteoarthritis, unspecified site; I25.10 Atherosclerotic heart disease of native coronary artery without angina pectoris; J44.9 Chronic obstructive pulmonary disease, unspecified; F11.90 Opioid use, unspecified, uncomplicated; Z99.2 Dependence on renal dialysis; I25.2 Old myocardial infarction; Z95.5 Presence of coronary angioplasty implant and graft; Z90.710 Acquired absence of both cervix and uterus; Z90.49 Acquired absence of other specified parts of digestive tract; Z87.891 Personal history of nicotine dependence; Z79.82 Long term (current) use of aspirin; Z79.899 Other long term (current) drug therapy
CPT/HCPCS: 36415; 36416; 70551; 74018; 80053; 81003; 81015; 84146; 84484; 85007; 85027; 90945; 95816; 95819; 96365; 96366; G0257; J0360; J1953; J7050; Q2009; S0028

== ENCOUNTER 2019-04-29 21:16 | Inpatient (IN) | payer MEDICARE, MEDICAID ==
--- NOTE | 2019-04-29 21:51 | RAD ---
EXAM: Single view of the chest HISTORY: Dyspnea COMPARISON: 05/27/2018 FINDINGS: Single view of the chest shows a normal sized cardiomediastinal silhouette. There is no ro dence of consolidation, mass, or pleural effusion. The bones are unremarkable. IMPRESSION: No evidence of acute cardiopulmonary disease
[2019-04-29 21:52] LABS: #Eosinphils 0.1 thou/uL (0.0-0.7); #Lymphocytes 1.2 thou/uL (1.20-3.40); #Monocytes 0.6 thou/uL (0.11-0.59); #Neutrophils 11.9 thou/uL (1.40-6.50); %Basophils 0.2 % (0.0-1.0); %Eosinophils 0.4 % (0.0-10.0); %Lymphocytes 8.7 % (21.0-51.0); %Monocytes 4.6 % (0.0-10.0); %Neutrophils 86.1 % (42.0-75.0); Hemoglobin 14.4 g/dL (12.0-16.0); Mean Corpuscular HGB CONC 31.9 g/dL (32.0-36.0); Mean Corpuscular Hemoglobin 28.2 pg (27.0-31.0); Mean Corpuscular Volume 88.3 fL (78.0-98.0); Mean Platelet Volume 8.1 fL (7.4-10.4); Platelet Count 223 thou/uL (130-400); RBC Distribution Width 14.2 % (11.5-14.5); Red Blood Cell (RBC) Count 5.09 mill/uL (4.20-5.40); White Blood Cell (WBC) Count 13.8 thou/uL (4.8-10.8)
[2019-04-29 22:17] LABS: ALT (SGPT) 25 U/L (8-55); AST (SGOT) 29 U/L (5-34); Albumin 4.5 g/dL (3.5-5.0); Alkaline Phosphatase 98 U/L (40-150); Anion Gap 23 mmol/L (10-20); BUN (Urea Nitrogen) 67 mg/dL (9.8-20.1); Bilirubin, Total 0.5 mg/dL (0.2-1.2); CK (CPK) 118 U/L (29-168); Calc. Creatinine Clearance 0 mL/min (70-130); Calcium 9.8 mg/dL (7.8-10.44); Carbon Dioxide 19 mmol/L (22-29); Chloride 113 mmol/L (98-107); Estimated GFR-MDRD 6; Globulin 3.6 g/dL (2.4-3.5); Glucose 116 mg/dL (70-105); Potassium 3.9 mmol/L (3.5-5.1); Protein, Total 8.1 g/dL (6.0-8.3); Sodium 151 mmol/L (136-145)
[2019-04-29 22:31] LABS: CKMB 1.3 ng/mL (0-6.6)
[2019-04-29] MEDS ORDERED: Ondansetron PF 4 MG/2 ML Vial IVP PRN (22:53)
[2019-04-29] MEDS ORDERED: Ondansetron ODT 4 MG TAB PO PRN (22:53)
[2019-04-29] MEDS ORDERED: Acetaminophen 650 MG Suppository PR PRN (22:53)
[2019-04-29 23:19] LABS: Troponin I 0.061 ng/mL (< 0.028)
--- NOTE | 2019-04-30 02:35 | HP ---
PRIMARY CARE PHYSICIAN: Yoel Padgett MD CODE STATUS: Full code. TIME OF EVALUATION: 10:30 p.m. CHIEF COMPLAINT: Change in mental status. Information is gathered from records. The patient is nonverbal, though she is alert. HISTORY OF PRESENT ILLNESS: This is a 54-year-old female patient with past medical history of peritoneal dialysis, hypertension, and end-stage renal disease, came to the hospital after having change in mental status with no clear triggers, no alleviating factors. The patient was lethargic, nonverbal, unable to answer questions or follow commands. She was found to have sodium 153, potassium 4, BUN 59, and creatinine 8.8. Normal LFTs. White count was 12 and hemoglobin 13.7. Protein present in urine. UA positive for opioids. Seems like symptoms had started insidiously and that is gradually getting worse. REVIEW OF SYSTEMS: Unable to obtain. The patient is noncooperative to interview. PAST MEDICAL HISTORY: Positive for hypertension; diabetes, type 2; anemia; arthritis; cholelithiasis; and coronary artery disease. PAST SURGICAL HISTORY: Cardiac stent x4, hysterectomy, and cholecystectomy. PSYCHIATRIC HISTORY: Includes anxiety. FAMILY HISTORY:Reviewed and non contributory for current presentation SOCIAL HISTORY: The patient is a former drug user, abused marijuana. The patient is a former tobacco user, smoked cigarettes. KNOWN ALLERGIES: No known drug allergies. REPORTED MEDICATIONS: 1. Benadryl. 2. Aspirin. 3. Atorvastatin. 4. Dialyvite. 5. Calcitriol. 6. Zetia. 7. Clopidogrel. 8. Carvedilol. 9. Clonidine. 10. Pantoprazole. 11. Sertraline. 12. Sevelamer. 13. ProAir HFA. 14. Acetaminophen. PHYSICAL EXAMINATION: VITAL SIGNS: Blood pressure was 240/160 with heart rate of 102, respiratory rate was 15, and temperature 97.6. Pain, unable to rate. Oxygen saturation 99% on room air. GENERAL APPEARANCE: The patient is lethargic, arousable, nonverbal, very dry mouth. HEENT: Eyes, normal conjunctivae. Dry oral mucosa. Anicteric. No JVD. RESPIRATORY: Bilateral air entry is decreased. No rales, no wheezing. Symmetric expansion. CARDIOVASCULAR: The patient is hypertensive with mild tachycardia with systolic murmur. ABDOMEN: Soft. Normal bowel sounds. MUSCULOSKELETAL: Baseline range of motion and strength. SKIN: Warm and intact. No pallor. No rash. No redness. Capillary refill seems to be intact. NEURO: The patient is lethargic, unable to fully explore. No evidence of any focal weakness. PSYCH: Unable to fully explore. IMAGING: EKG was reviewed. The patient has normal sinus rhythm with right atrial enlargement, left ventricular hypertrophy, repolarization abnormalities, ventricular rate 99, SD 138, QRS 88, QT corrected 500. Chest x-ray was reviewed. The patient has no evidence of acute cardiopulmonary disease. LABORATORY DATA: Reviewed. The patient has white count 13.8, hemoglobin 14.4, MCV 88.3, and platelet count 223. Sodium 155, potassium 3.9, chloride 113, carbon dioxide 19, anion gap 23, BUN 67, creatinine 8.48, GFR 6, glucose 116, calcium 9.8, and total bilirubin 0.5. LFTs were negative. Troponin is 0.061. Beta natriuretic peptide 723. Serum total protein 8.1, albumin 4.5, globulin 3.6, and albumin globulin ratio is 1.3. ASSESSMENT AND PLAN: The patient will be placed in the hospital with following medical problems; Critical care time spent, more than 35 minutes at bedside assessment, medication reconciliation, stabilization of the patient, discussion of patient with ER staff, and coordination of care. 1. Acute encephalopathy, seems to be metabolic. Sodium is in the 150s. The patient is very hypertensive. She needs peritoneal dialysis. The patient will consult Nephrology for any further recommendation. 2. Hypertensive emergency with acute encephalopathy. The patient has been on Cardene drip. Blood pressure has been in better control now. We will place in ICU. We will monitor. We will restart home medications once the patient is able to swallow and mentation is better. Nephrology is also being consulted. We will follow recommendations. 3. Leukocytosis, unclear etiology, could be due to dehydration. No evidence of sepsis at this point. We will monitor. If any evidence of infection appears, we will start the patient on broad-spectrum antibiotics. 4. Hypernatremia, likely secondary to dehydration. We will consult Nephrology. We might hydrate gently and monitor. 5. High anion gap metabolic acidosis, likely secondary to end-stage renal disease. The patient to receive dialysis once seen by Nephrology. 6. Mildly elevated troponin, likely acute coronary syndrome. This seems to be likely related to underlying kidney problems. Job ID: [id number] MTDD
[2019-04-30] MEDS: niCARdipine 50 MG in Sodium Chloride 0.9% 250 ML 230 ML IVPB SCH ×3 (02:36→23:04)
[2019-04-30 08:29] LABS: #Basophils 0.1 thou/uL (0.0-0.2); #Lymphocytes 1.1 thou/uL (1.20-3.40); #Monocytes 0.8 thou/uL (0.11-0.59); #Neutrophils 11.5 thou/uL (1.40-6.50); %Basophils 0.4 % (0.0-1.0); %Eosinophils 0.2 % (0.0-10.0); %Monocytes 6.1 % (0.0-10.0); %Neutrophils 85.3 % (42.0-75.0); Hemoglobin 14.2 g/dL (12.0-16.0); Mean Corpuscular Hemoglobin 28.4 pg (27.0-31.0); Mean Corpuscular Volume 88.8 fL (78.0-98.0); Mean Platelet Volume 8.1 fL (7.4-10.4); Platelet Count 230 thou/uL (130-400); RBC Distribution Width 14.5 % (11.5-14.5); White Blood Cell (WBC) Count 13.5 thou/uL (4.8-10.8)
[2019-04-30 08:59] LABS: Anion Gap 21 mmol/L (10-20); BUN (Urea Nitrogen) 70 mg/dL (9.8-20.1); Calc. Creatinine Clearance 7 mL/min (70-130); Calcium 9.8 mg/dL (7.8-10.44); Carbon Dioxide 18 mmol/L (22-29); Chloride 117 mmol/L (98-107); Estimated GFR-MDRD 6; Glucose 115 mg/dL (70-105); Potassium 4.1 mmol/L (3.5-5.1); Sodium 152 mmol/L (136-145)
[2019-04-30] MEDS ORDERED: Heparin 5,000 UNITS/ML VIAL SC SCH (09:00)
[2019-04-30] MEDS ORDERED: Enoxaparin Sodium 30 MG/0.3 ML SYRINGE SC SCH (09:00)
[2019-04-30] MEDS ORDERED: Multivitamins, Adult 10 ML, Folic Acid 1 MG, Thiamine HCl 100 MG in Dextrose 5 %-0.45 %... IV SCH (10:45)
[2019-04-30] MEDS ORDERED: niCARdipine 40MG In NaCl 40 MG/200 ML BAG IVPB SCH (10:45)
[2019-04-30] MEDS ORDERED: Dextrose 5% in Water 500 ML IV SCH (14:30)
--- NOTE | 2019-04-30 16:33 | CON ---
DATE OF CONSULTATION: 04/30/2019 CONSULTING PHYSICIAN: Dr. Capellan. REASON FOR CONSULTATION: End-stage renal disease evaluation care. REASON FOR ADMISSION: Altered mentation. HISTORY OF PRESENT ILLNESS: This is a 54-year-old female with history of hypertension, type 2 diabetes, anemia, coronary artery disease, came to the hospital with altered mentation is being treated. The patient gets PD at home and she was also found to have dehydration with hypernatremia. The patient is having altered mentation, not able to cooperate and not able to have history from her. PAST MEDICAL HISTORY: Positive for hypertension, type 2 diabetes, arthritis, and end-stage renal disease on peritoneal dialysis. PAST SURGICAL HISTORY: Cardiac stent, cholecystectomy, and PD catheter placement. HOME MEDICATIONS: 1. Benadryl. 2. Aspirin. 3. Atorvastatin. 4. Dialyvite. 5. Calcitriol. 6. Zetia. 7. Clopidogrel. 8. Clonidine. 9. Pantoprazole. 10. Sevelamer. 11. ProAir. 12. Tylenol. ALLERGIES: NO KNOWN DRUG ALLERGIES. SOCIAL HISTORY: Former substance abuse and tobacco use. FAMILY HISTORY: No history of kidney disease. REVIEW OF SYSTEMS: Could not be obtained. PHYSICAL EXAMINATION: GENERAL: This is a well-built female, confused. VITAL SIGNS: Temperature 98.2, pulse 102, respiratory rate 18, and blood pressure 156/123. HEENT: Atraumatic. CV: S1 and S2 heard. RESPIRATORY: Clear. GI: Abdomen is soft. MUSCULOSKELETAL: No edema. DERMATOLOGIC: No skin rash. NEUROLOGIC: Confused. LABORATORY DATA: Hemoglobin is 14.2, potassium 4.1, sodium is 152, BUN is 70, and creatinine is 8.3. ASSESSMENT AND PLAN: 1. End-stage renal disease. We will continue on PD with low concentration solution. 2. Hypernatremia, most likely from dehydration. We will give D5W for total of 500 mL today. 3. Acidosis. 4. Edema. 5. Hypertension, stable. 6. Anemia of chronic disease. 7. Hypertension, titrate medications. 8. Altered mentation, most likely from uremia. Follow up with Neurology. 9. Prognosis, guarded. We will continue on PD as tolerated with low concentration solution. Job ID: [id number]
[2019-04-30] MEDS: Heparin 5,000 UNITS/ML VIAL SC SCH (20:38)
[2019-05-01] MEDS: niCARdipine 50 MG in Sodium Chloride 0.9% 250 ML 230 ML IVPB SCH (06:19)
[2019-05-01 06:27] LABS: #Eosinphils 0.1 thou/uL (0.0-0.7); #Lymphocytes 1.5 thou/uL (1.20-3.40); #Neutrophils 13.1 thou/uL (1.40-6.50); %Basophils 0.2 % (0.0-1.0); %Eosinophils 0.5 % (0.0-10.0); %Lymphocytes 9.4 % (21.0-51.0); %Monocytes 6.1 % (0.0-10.0); %Neutrophils 83.8 % (42.0-75.0); Hemoglobin 14.3 g/dL (12.0-16.0); Mean Corpuscular HGB CONC 32.2 g/dL (32.0-36.0); Mean Corpuscular Hemoglobin 28.3 pg (27.0-31.0); Mean Corpuscular Volume 87.7 fL (78.0-98.0); Mean Platelet Volume 8.4 fL (7.4-10.4); Platelet Count 234 thou/uL (130-400); RBC Distribution Width 14.4 % (11.5-14.5); Red Blood Cell (RBC) Count 5.06 mill/uL (4.20-5.40); White Blood Cell (WBC) Count 15.6 thou/uL (4.8-10.8)
[2019-05-01 06:49] LABS: ALT (SGPT) 31 U/L (8-55); AST (SGOT) 39 U/L (5-34); Albumin 4.5 g/dL (3.5-5.0); Alkaline Phosphatase 104 U/L (40-150); Anion Gap 19 mmol/L (10-20); BUN (Urea Nitrogen) 61 mg/dL (9.8-20.1); Bilirubin, Total 0.7 mg/dL (0.2-1.2); Calc. Creatinine Clearance 8 mL/min (70-130); Calcium 10.3 mg/dL (7.8-10.44); Carbon Dioxide 20 mmol/L (22-29); Chloride 114 mmol/L (98-107); Estimated GFR-MDRD 7; Globulin 3.8 g/dL (2.4-3.5); Glucose 131 mg/dL (70-105); Potassium 3.7 mmol/L (3.5-5.1); Protein, Total 8.3 g/dL (6.0-8.3); Sodium 149 mmol/L (136-145)
[2019-05-01] MEDS: Heparin 5,000 UNITS/ML VIAL SC SCH ×2 (08:11→20:02)
[2019-05-01] MEDS: Famotidine/PF 20 mg/2ml Vial SLOW IVP SCH (08:11)
[2019-05-01] MEDS ORDERED: PROVENTIL INHALER 6.7 G (200 INHALATIONS) INH PRN (08:46)
[2019-05-01] MEDS ORDERED: diphenhydrAMINE 25 MG CAP PO PRN (08:46)
[2019-05-01] MEDS: Clopidogrel Bisulfate 75 MG TAB PO SCH (09:31)
[2019-05-01] MEDS: cloNIDine 0.3 MG TAB PO SCH ×2 (09:31→20:01)
[2019-05-01] MEDS: Atorvastatin Calcium 40 MG TAB PO SCH (09:32)
[2019-05-01] MEDS: Carvedilol 25 MG TAB PO SCH ×2 (09:32→20:00)
[2019-05-01] MEDS: Folic Acid/Vit B Comp W-C PO SCH (09:32)
[2019-05-01] MEDS: Aspirin 81 mg Enteric Coated Tablet PO SCH (09:32)
[2019-05-01] MEDS: Calcitriol 0.25 MCG CAP PO SCH (09:32)
--- NOTE | 2019-05-01 09:40 | CON ---
DATE OF CONSULTATION: 04/30/2019 REASON FOR CONSULTATION: Hypertensive emergency. CONSULTING PHYSICIAN: Hospitalist group. This encompasses 45 minutes of critical care time. HISTORY OF PRESENT ILLNESS: This is a 54-year-old female, who presented to [facility] yesterday with a profoundly elevated systolic blood pressure around 241. She cannot give history. She has a blank stare on her face. She does move all 4 extremities. She has been in the hospital before with opioid overdoses and was taken care by Dr. Bobo at that time. She is also a peritoneal dialysis patient. PAST MEDICAL HISTORY: 1. Hypertension. 2. End-stage renal disease. 3. Arthritis. 4. Cholelithiasis. PAST SURGICAL HISTORY: 1. Coronary stent. 2. Peritoneal dialysis catheter placement. 3. Hysterectomy. 4. Cholecystectomy. SOCIAL HISTORY: Apparently uses opioids and marijuana. Smokes cigarettes. ALLERGIES: NONE. MEDICATIONS: Prior to admission; 1. Benadryl. 2. Aspirin. 3. Atorvastatin. 4. Dialyvite. 5. Calcitriol. 6. Zetia. 7. Plavix. 8. Carvedilol. 9. Clonidine. 10. Pantoprazole. 11. Sertraline. 12. Sevelamer. 13. ProAir. 14. Acetaminophen. REVIEW OF SYSTEMS: Cannot be obtained as the patient is confused. PHYSICAL EXAMINATION: VITAL SIGNS: Blood pressure 162/95, 02 sat 97%, respiratory rate 14, and temperature 99.1. GENERAL: She is a middle-aged female, in no distress. HEENT: Remarkable for false gold teeth in front. NECK: No adenopathy or JVD. LUNGS: Clear to auscultation. CARDIAC: S1 and S2, regular without audible murmur. ABDOMEN: Soft. PD catheter is noted. EXTREMITIES: No clubbing, cyanosis, or edema. She moves all 4 extremities without difficulty. DIAGNOSTIC DATA: The chest x-ray shows normal heart size. No mass, effusion, or infiltrate. LABORATORY DATA: White blood cell count 13.5, hematocrit 44.3, and platelet count 230. Sodium 152, potassium 4.1, chloride 117, CO2 of 18, BUN 70, creatinine 8.3, and glucose 115. Troponin 0.61. Tox screen was positive for opiates. ASSESSMENT: 1. Hypertensive emergency/encephalopathy. 2. Hypertensive emergency. 3. Chronic renal failure. 4. Hypernatremia - I suspect the patient may be somewhat dry. 5. Opiate use. PLAN: 1. I would not be aggressive in lowering blood pressure. I think systolic 170 to 190 has more than adequate for the time being. She needs good cerebral blood flow. 2. CT of the head was performed in [place], which was negative for intracranial hemorrhage or mass. 3. Continue supportive care in the ICU until her mental status improves. 4. Likely able to start oral antihypertensives tomorrow. 5. Added Pepcid for GI prophylaxis. She is currently on heparin for DVT prophylaxis. 6. Nephrology has been consulted to deal with her peritoneal dialysis needs. Job ID: [id number]
--- NOTE | 2019-05-01 11:18 | PRG ---
DATE OF SERVICE: 05/01/2019 SUBJECTIVE: Patient was seen and examined at bedside and overnight events noted. Patient denies any shortness of breath or chest pain or palpitation. No history of nausea or vomiting or diarrhea or fever or chills or cramps. OBJECTIVE: GENERAL: This is a thin-built female, in no apparent distress. VITAL SIGNS: Temperature 98.3. Heart rate 97. Respiratory rate 18. Blood pressure 149/92. HEENT: Atraumatic, normocephalic. Oral mucosa is moist NECK: Supple. CARDIOVASCULAR: S1, S2 heard. Rate and rhythm regular. RESPIRATORY: Clear to auscultation. GASTROINTESTINAL: Abdomen is soft. MUSCULOSKELETAL: No tenderness. No edema. DERMATOLOGIC: No skin rash. NEUROLOGIC: Confused, but alert and awake and smiles and repeats words to me. PSYCHIATRIC: Mood and affect normal. LABORATORY DATA: Potassium is 3.7, BUN is 61, and creatinine is 7.3. ASSESSMENT AND PLAN: 1. End-stage renal disease, currently on PD as tolerated with low concentration solution. 2. Hypernatremia, encourage free water intake. 3. Acidosis. 4. Edema. 5. Hypertension. 6. Anemia. 7. Altered mentation seems to be slightly better today. We will continue on dialysis as tolerated. Job ID: [id number]
[2019-05-01] MEDS: Sevelamer Carbonate 800 MG TAB PO SCH ×2 (12:21→17:02)
--- NOTE | 2019-05-01 15:36 | PRG ---
DATE OF SERVICE: 05/01/2019 SUBJECTIVE: Jyoti Peacock apparently has improved overnight. She presented with encephalopathy and hypertension [id number]. She is off her Cardene drip at this point. Past medical history is remarkable for hypertension, end-stage renal disease, arthritis, cholelithiasis, and coronary artery disease. She has told me today that she had a cardiac catheterization done at [facility], [place]. When I asked her how she got to [facility], [place], she changed her saying that she had a cardiac catheterization in [place]. She has been in for drug overdoses in the past. OBJECTIVE: VITAL SIGNS: Blood pressure 147/86, heart rate 82, respiratory rate 25, oximetry is 96%. HEAD AND NECK: Unremarkable. LUNGS: Clear anteriorly. HEART: Regular rhythm. ABDOMEN: Soft. EXTREMITIES: Without edema. LABORATORY DATA: White count 15.6, hemoglobin 14.3, platelets 234. Sodium 149, potassium 3.7, chloride 114, bicarb 20, BUN 61, creatinine 7.3. IMPRESSION: 1. Encephalopathy with poorly-controlled hypertension, improved. 2. End-stage renal disease. PLAN: Continue supportive care. It would be reasonable to transfer her out of the critical care unit at this point. Job ID: [id number]
--- NOTE | 2019-05-01 17:08 | PDOC.HOSPP ---
- Subjective Encounter Date: 05/01/19 Encounter Time: 10:00 Subjective: Pt seen for followup re: hypertensive emergency. Says she feels better. Says she did not have dialysis. - Objective Vital Signs & Weight: Vital Signs (12 hours) Temp Pulse Resp BP BP Pulse Ox 05/01/19 16:55 97.3 F L 90 18 160/97 H 97 05/01/19 15:00 97.6 F 05/01/19 11:00 97.6 F 05/01/19 09:31 173/121 H 05/01/19 08:00 98 05/01/19 07:00 98.3 F Weight Weight 129 lb 10.109 oz Most Recent Monitor Data Heart Rate from ECG 80 NIBP 143/86 NIBP BP-Mean 105 Respiration from ECG 19 SpO2 97 I&O: 04/30/19 05/01/19 05/02/19 06:59 06:59 06:59 Intake Total 205 2058 815 Output Total 250 920 310 Balance -45 1138 505 Result Diagrams: 05/01/19 06:00 05/01/19 06:00 Additional Labs: Accuchecks 05/01/19 04/30/19 05:23 20:30 POC Glucose 114 H 122 H Labs and MARs reviewed by me EKG Reviewed by me: Yes (Tele; NSR) Hospitalist ROS - Review of Systems Cardiovascular: denies: chest pain, palpitations, orthopnea, paroxysmal noc. dyspnea, edema, light headedness Gastrointestinal: denies: nausea, vomitting, abdominal pain, diarrhea, constipation, melena, hematochezia - Medication Medications: Active Medications Generic Name Dose Route Start Last Admin Trade Name Paulo PRN Reason Stop Dose Admin Aspirin 81 mg 05/01/19 09:00 05/01/19 09:32 Ecotrin PO 81 mg QAM ABELARDO Administration Atorvastatin Calcium 80 mg 05/01/19 09:00 05/01/19 09:32 Lipitor PO 80 mg QAM ABELARDO Administration Calcitriol 0.25 mcg 05/01/19 09:00 05/01/19 09:32 Rocaltrol PO 0.25 mcg DAILY ABELARDO Administration Carvedilol 25 mg 05/01/19 09:00 05/01/19 09:32 Coreg PO 25 mg BID ABELARDO Administration Clonidine 0.3 mg 05/01/19 09:00 05/01/19 09:31 Catapres PO 0.3 mg BID ABELARDO Administration Clopidogrel Bisulfate 75 mg 05/01/19 09:00 05/01/19 09:31 Plavix PO 75 mg DAILY ABELARDO Administration Famotidine 20 mg 05/01/19 09:00 05/01/19 08:11 Pepcid SLOW IVP 20 mg DAILY ABELARDO Administration Heparin Sodium (Porcine) 5,000 units 04/30/19 21:00 05/01/19 08:11 Heparin SC 5,000 units BID ABELARDO Administration Nicardipine HCl 50 mg/ Sodium 250 mls @ 25 mls/hr 04/30/19 22:30 05/01/19 06: 19 Chloride IVPB 250 mls INF ABELARDO Administration Protocol 5 MG/HR Pantoprazole Sodium 40 mg 05/01/19 09:00 05/01/19 09:31 Protonix PO 40 mg QAM ABELARDO Administration Sertraline HCl 25 mg 05/01/19 09:00 05/01/19 10:20 Zoloft PO Not Given DAILY ABELARDO Sevelamer Carbonate 800 mg 05/01/19 12:00 05/01/19 17:02 Renvela PO 800 mg TID-WM ABELARDO Administration Sodium Chloride 10 ml 04/30/19 09:00 05/01/19 08:11 Flush - Normal Saline IVF 10 ml Q12HR ABELARDO Administration Vitamin B Complex/Vit C/Folic Acid 1 tab 05/01/19 09:00 05/01/19 09:32 Nephro-Sandoval Tablet PO 1 tab DAILY ABELARDO Administration - Exam General Appearance: NAD Eye: anicteric sclera ENT: moist mucosa Neck: supple Heart: RRR Respiratory: CTAB Gastrointestinal: soft, non-tender Skin: no rashes Psychiatric: normal affect, oriented to person, oriented to place Psychiatric - other findings: Not oriented to time Hosp A/P (1) Hypertensive emergency Code(s): I16.1 - HYPERTENSIVE EMERGENCY Status: Acute (2) Hypertensive encephalopathy Code(s): I67.4 - HYPERTENSIVE ENCEPHALOPATHY Status: Acute (3) ESRD (end stage renal disease) on dialysis Code(s): N18.6 - END STAGE RENAL DISEASE; Z99.2 - DEPENDENCE ON RENAL DIALYSIS Status: Chronic (4) CAD (coronary artery disease) Code(s): I25.10 - ATHSCL HEART DISEASE OF [place] CORONARY ARTERY W/O ANG PCTRS Status: Chronic Qualifiers: (5) Dyslipidemia Code(s): E78.5 - HYPERLIPIDEMIA, UNSPECIFIED Status: Chronic (6) HTN (hypertension) Code(s): I10 - ESSENTIAL (PRIMARY) HYPERTENSION Status: Chronic Qualifiers: - Plan PT/OT, out of bed/ambulate Blood pressure improved, pt is off of cardene drip. Resume home medications, monitor vital signs and titrarte antihypertensives as needed. Hypertensive encephalopathy improving. Nephrology following for dialysis.
[2019-05-01] MEDS: Ezetimibe 10 MG TAB PO SCH (20:01)
[2019-05-01] MEDS: Acetaminophen 325 MG TAB PO PRN (23:27)
[2019-05-02 04:44] LABS: #Eosinphils 0.2 thou/uL (0.0-0.7); #Lymphocytes 2.1 thou/uL (1.20-3.40); #Monocytes 0.8 thou/uL (0.11-0.59); #Neutrophils 7.2 thou/uL (1.40-6.50); %Basophils 0.2 % (0.0-1.0); %Eosinophils 1.7 % (0.0-10.0); %Lymphocytes 20.7 % (21.0-51.0); %Monocytes 8.1 % (0.0-10.0); %Neutrophils 69.3 % (42.0-75.0); Hemoglobin 12.9 g/dL (12.0-16.0); Mean Corpuscular HGB CONC 31.9 g/dL (32.0-36.0); Mean Corpuscular Hemoglobin 28.2 pg (27.0-31.0); Mean Corpuscular Volume 88.2 fL (78.0-98.0); Mean Platelet Volume 8.2 fL (7.4-10.4); Platelet Count 201 thou/uL (130-400); RBC Distribution Width 14.3 % (11.5-14.5); White Blood Cell (WBC) Count 10.4 thou/uL (4.8-10.8)
[2019-05-02] MEDS: hydrALAZINE 20 MG/ML VIAL SLOW IVP PRN ×2 (05:34→23:49)
--- NOTE | 2019-05-02 08:44 | PRG ---
DATE OF SERVICE: 05/02/2019 SUBJECTIVE: A 54-year-old female being seen for end-stage renal disease. The patient denies nausea, vomiting, or chest pain. OBJECTIVE: CONSTITUTIONAL: The patient is awake and alert. VITAL SIGNS: Pulse 73, breathing 16, and blood pressure 172/74. GENERAL APPEARANCE AND MENTAL STATUS: Fair. HEAD/NECK: Normocephalic. Atraumatic. EYES: EOMI. No deformity. EARS: Clear. No ulcers. NOSE: Intact. No lesions. MOUTH: Clear. No discharge. THROAT: Clear. No exudate. LUNGS: Clear. No crackles. CARDIAC: S1, S2. No rub. ABDOMEN: Benign. Bowel sounds positive. GENITALIA/RECTUM: Weiner absent. BACK/EXTREMITIES: Edema 0+. NEUROLOGICAL: Alert and motor intact. SKIN: LYMPHATICS: LABORATORY DATA: Labs reviewed. ASSESSMENT AND PLAN: Stage 6 chronic kidney disease, continue peritoneal dialysis. Hypertension, would recommend adding nifedipine 30 mg XL daily. Anemia, stable. Medication based on GFR appropriate. Job ID: [id number]
[2019-05-02] MEDS: Sevelamer Carbonate 800 MG TAB PO SCH ×4 (09:04→16:21)
[2019-05-02] MEDS: Atorvastatin Calcium 40 MG TAB PO SCH (09:06)
[2019-05-02] MEDS: Calcitriol 0.25 MCG CAP PO SCH (09:06)
[2019-05-02] MEDS: Aspirin 81 mg Enteric Coated Tablet PO SCH (09:06)
[2019-05-02] MEDS: Clopidogrel Bisulfate 75 MG TAB PO SCH (09:06)
[2019-05-02] MEDS: cloNIDine 0.3 MG TAB PO SCH ×2 (09:07→20:32)
[2019-05-02] MEDS: Folic Acid/Vit B Comp W-C PO SCH (09:07)
[2019-05-02] MEDS: Carvedilol 25 MG TAB PO SCH ×2 (09:07→20:33)
[2019-05-02] MEDS: Heparin 5,000 UNITS/ML VIAL SC SCH ×2 (09:07→20:32)
[2019-05-02] MEDS: Famotidine 20 MG TAB PO SCH ×2 (11:24→11:38)
[2019-05-02] MEDS: Famotidine/PF 20 mg/2ml Vial SLOW IVP SCH (11:29)
[2019-05-02] MEDS: Haloperidol Lactate 5 MG/ML VIAL IM SCH ×2 (13:49→14:10)
[2019-05-02] MEDS: Acetaminophen 325 MG TAB PO PRN (16:21)
--- NOTE | 2019-05-02 16:52 | PDOC.HOSPP ---
- Subjective Encounter Date: 05/02/19 Encounter Time: 07:00 Subjective: Pt seen for followup re: hypertensive emergency. Slightly better. - Objective Vital Signs & Weight: Vital Signs (12 hours) Temp Pulse Resp BP BP Pulse Ox 05/02/19 11:30 97.9 F 86 18 133/88 99 05/02/19 09:07 190/104 H 05/02/19 08:00 99 05/02/19 07:35 97.9 F 85 18 189/111 H 99 Weight Weight 129 lb 10.109 oz Most Recent Monitor Data Heart Rate from ECG 80 NIBP 143/86 NIBP BP-Mean 105 Respiration from ECG 19 SpO2 97 I&O: 05/01/19 05/02/19 05/03/19 06:59 06:59 06:59 Intake Total 2058 1825 Output Total 920 560 Balance 1138 1265 Result Diagrams: 05/02/19 04:10 05/01/19 06:00 Additional Labs: Accuchecks 05/02/19 05/02/19 05/01/19 10:49 05:53 23:17 POC Glucose 100 95 98 Labs and MARs reviewed by me EKG Reviewed by me: Yes (Tele: sinus tachycardia) Hospitalist ROS - Review of Systems Cardiovascular: denies: chest pain, palpitations, orthopnea, paroxysmal noc. dyspnea, edema, light headedness Gastrointestinal: denies: nausea, vomitting, abdominal pain, diarrhea, constipation, melena, hematochezia - Medication Medications: Active Medications Generic Name Dose Route Start Last Admin Trade Name Freq PRN Reason Stop Dose Admin Acetaminophen 650 mg 04/29/19 22:53 05/02/19 16:21 Tylenol PO 650 mg Q4H PRN Administration Headache/Fever/Mild Pain (1-3) Aspirin 81 mg 05/01/19 09:00 05/02/19 09:06 Ecotrin PO 81 mg QAM ABELARDO Administration Atorvastatin Calcium 80 mg 05/01/19 09:00 05/02/19 09:06 Lipitor PO 80 mg QAM ABELARDO Administration Calcitriol 0.25 mcg 05/01/19 09:00 05/02/19 09:06 Rocaltrol PO 0.25 mcg DAILY ABELARDO Administration Carvedilol 25 mg 05/01/19 09:00 05/02/19 09:07 Coreg PO 25 mg BID ABELARDO Administration Clonidine 0.3 mg 05/01/19 09:00 05/02/19 09:07 Catapres PO 0.3 mg BID ABELARDO Administration Clopidogrel Bisulfate 75 mg 05/01/19 09:00 05/02/19 09:06 Plavix PO 75 mg DAILY ABELARDO Administration Diphenhydramine HCl 25 mg 05/01/19 08:46 05/01/19 23:27 Benadryl PO 25 mg HS PRN Administration Insomnia Ezetimibe 10 mg 05/01/19 21:00 05/01/19 20:01 Zetia PO 10 mg HS ABELARDO Administration Heparin Sodium (Porcine) 5,000 units 04/30/19 21:00 05/02/19 09:07 Heparin SC 5,000 units BID ABELARDO Administration Hydralazine HCl 10 mg 05/02/19 05:25 05/02/19 05:34 Apresoline SLOW IVP 10 mg Q6H PRN Administration SBP > 160, DBP > 100 Nicardipine HCl 50 mg/ Sodium 250 mls @ 25 mls/hr 04/30/19 22:30 05/01/19 06: 19 Chloride IVPB 250 mls INF ABELARDO Administration Protocol 5 MG/HR Pantoprazole Sodium 40 mg 05/01/19 09:00 05/02/19 09:06 Protonix PO 40 mg QAM ABELARDO Administration Sertraline HCl 25 mg 05/01/19 09:00 05/02/19 09:06 Zoloft PO 25 mg DAILY ABELARDO Administration Sevelamer Carbonate 800 mg 05/01/19 12:00 05/02/19 16:21 Renvela PO 800 mg TID-WM ABELARDO Administration Sodium Chloride 10 ml 04/30/19 09:00 05/02/19 09:08 Flush - Normal Saline IVF Not Given Q12HR ABELARDO Vitamin B Complex/Vit C/Folic Acid 1 tab 05/01/19 09:00 05/02/19 09:07 Nephro-Sandoval Tablet PO 1 tab DAILY ABELARDO Administration - Exam General Appearance: NAD Eye: anicteric sclera ENT: moist mucosa Neck: supple Heart - other findings: S1, S2, reg, tachy Respiratory: CTAB Gastrointestinal: soft Extremities: no cyanosis Neurological: no weakness Psychiatric: normal behavior Hosp A/P (1) Hypertensive emergency Code(s): I16.1 - HYPERTENSIVE EMERGENCY Status: Acute (2) Hypertensive encephalopathy Code(s): I67.4 - HYPERTENSIVE ENCEPHALOPATHY Status: Acute (3) ESRD (end stage renal disease) on dialysis Code(s): N18.6 - END STAGE RENAL DISEASE; Z99.2 - DEPENDENCE ON RENAL DIALYSIS Status: Chronic (4) CAD (coronary artery disease) Code(s): I25.10 - ATHSCL HEART DISEASE OF [place] CORONARY ARTERY W/O ANG PCTRS Status: Chronic Qualifiers: (5) Dyslipidemia Code(s): E78.5 - HYPERLIPIDEMIA, UNSPECIFIED Status: Chronic (6) HTN (hypertension) Code(s): I10 - ESSENTIAL (PRIMARY) HYPERTENSION Status: Chronic Qualifiers: - Plan out of bed/ambulate Blood pressure continues to improve. Monitor vital signs and titrate antihypertensives as needed. Hypertensive encephalopathy improving, although patient appears to be slightly paranoid. Nephrology following for maintenance peritoneal dialysis.
[2019-05-02] MEDS: Ezetimibe 10 MG TAB PO SCH (20:33)
[2019-05-03] MEDS ORDERED: Haloperidol Lactate 5 MG/ML VIAL IM SCH (08:00)
[2019-05-03] MEDS: cloNIDine 0.3 MG TAB PO SCH ×2 (11:09→21:59)
[2019-05-03] MEDS: Folic Acid/Vit B Comp W-C PO SCH (11:09)
[2019-05-03] MEDS: Atorvastatin Calcium 40 MG TAB PO SCH (11:09)
[2019-05-03] MEDS: Amlodipine 5 MG TAB PO SCH (11:10)
[2019-05-03] MEDS: Carvedilol 25 MG TAB PO SCH (11:10)
[2019-05-03] MEDS: Aspirin 81 mg Enteric Coated Tablet PO SCH (11:11)
[2019-05-03] MEDS: Famotidine 20 MG TAB PO SCH (11:11)
[2019-05-03] MEDS: Heparin 5,000 UNITS/ML VIAL SC SCH ×2 (11:11→21:58)
[2019-05-03] MEDS: Calcitriol 0.25 MCG CAP PO SCH (11:11)
[2019-05-03] MEDS: Sevelamer Carbonate 800 MG TAB PO SCH ×3 (11:11→16:56)
[2019-05-03] MEDS: Clopidogrel Bisulfate 75 MG TAB PO SCH (11:11)
--- NOTE | 2019-05-03 12:21 | PRG ---
DATE OF SERVICE: 05/03/2019 SUBJECTIVE: A 54-year-old female being seen for end-stage renal disease. The patient has altered mental status, can give no answers. OBJECTIVE: See above. CONSTITUTIONAL: The patient is awake. The patient refused dialysis. VITAL SIGNS: Afebrile, pulse 83, breathing 16, blood pressure 167/100. GENERAL APPEARANCE AND MENTAL STATUS: Fair. HEAD/NECK: Normocephalic. Atraumatic. EYES: EOMI. No deformity. EARS: Clear. No ulcers. NOSE: Intact. No lesions. MOUTH: Clear. No discharge. THROAT: Clear. No exudate. LUNGS: Clear. No crackles. CARDIAC: S1, S2. No rub. ABDOMEN: Benign. Bowel sounds positive. GENITALIA/RECTUM: Weiner absent. BACK/EXTREMITIES: Edema 0+. NEUROLOGICAL: The patient is confused. SKIN: LYMPHATICS: LABORATORY DATA: Labs reviewed. ASSESSMENT AND PLAN: 1. Chronic kidney disease, stage 6. Continue peritoneal dialysis. 2. Hypertension, not taking medications. Titrate medications as needed. I will try to pull off fluid. This should help blood pressure. 3. Anemia, stable. 4. Medication based on GFR appropriate. Job ID: [id number]
[2019-05-03] MEDS ORDERED: hydrALAZINE 25 MG TAB PO PRN (14:51)
--- NOTE | 2019-05-03 15:40 | PDOC.HOSPP ---
- Subjective Encounter Date: 05/03/19 Encounter Time: 11:15 Subjective: Ms. Peacock was seen today in follow-up of hypertensive urgency and metabolic encephalopathy. She is alert and oriented x3, but she speaks very softly, and has difficulty answering questions. - Objective Vital Signs & Weight: Vital Signs (12 hours) Temp Pulse Resp BP BP Pulse Ox 05/03/19 14:58 88 179/113 H 05/03/19 13:00 168/107 H 05/03/19 11:55 98.9 F 95 15 188/117 H 98 05/03/19 11:10 93 188/117 H 05/03/19 11:09 188/117 H Weight Weight 129 lb 10.109 oz Most Recent Monitor Data Heart Rate from ECG 80 NIBP 143/86 NIBP BP-Mean 105 Respiration from ECG 19 SpO2 97 I&O: 05/02/19 05/03/19 05/04/19 06:59 06:59 06:59 Intake Total 1825 480 720 Output Total 560 1295 900 Balance 1265 -815 -180 Result Diagrams: 05/02/19 04:10 05/01/19 06:00 Additional Labs: Accuchecks 05/03/19 05/02/19 05/02/19 10:54 19:57 16:53 POC Glucose 99 83 103 Hospitalist ROS - Medication Medications: Active Medications Generic Name Dose Route Start Last Admin Trade Name Freq PRN Reason Stop Dose Admin Acetaminophen 650 mg 04/29/19 22:53 05/02/19 16:21 Tylenol PO 650 mg Q4H PRN Administration Headache/Fever/Mild Pain (1-3) Amlodipine Besylate 5 mg 05/03/19 09:00 05/03/19 11:10 Norvasc PO 5 mg DAILY ABELARDO Administration Aspirin 81 mg 05/01/19 09:00 05/03/19 11:11 Ecotrin PO 81 mg QAM ABELARDO Administration Atorvastatin Calcium 80 mg 05/01/19 09:00 05/03/19 11:09 Lipitor PO 80 mg QAM ABELARDO Administration Calcitriol 0.25 mcg 05/01/19 09:00 05/03/19 11:11 Rocaltrol PO 0.25 mcg DAILY ABELARDO Administration Clonidine 0.3 mg 05/01/19 09:00 05/03/19 11:09 Catapres PO 0.3 mg BID ABELARDO Administration Clopidogrel Bisulfate 75 mg 05/01/19 09:00 05/03/19 11:11 Plavix PO 75 mg DAILY ABELARDO Administration Diphenhydramine HCl 25 mg 05/01/19 08:46 05/01/19 23:27 Benadryl PO 25 mg HS PRN Administration Insomnia Ezetimibe 10 mg 05/01/19 21:00 05/02/19 20:33 Zetia PO 10 mg HS ABELARDO Administration Famotidine 20 mg 05/03/19 09:00 05/03/19 11:11 Pepcid PO 20 mg DAILY ABELARDO Administration Heparin Sodium (Porcine) 5,000 units 04/30/19 21:00 05/03/19 11:11 Heparin SC 5,000 units BID ABELARDO Administration Hydralazine HCl 10 mg 05/02/19 05:25 05/02/19 23:49 Apresoline SLOW IVP 10 mg Q6H PRN Administration SBP > 160, DBP > 100 Hydralazine HCl 25 mg 05/03/19 14:51 05/03/19 14:58 Apresoline PO 25 mg TID PRN Administration SBP Greater Than 170 Pantoprazole Sodium 40 mg 05/01/19 09:00 05/03/19 11:09 Protonix PO 40 mg QAM ABELARDO Administration Sertraline HCl 25 mg 05/01/19 09:00 05/03/19 11:09 Zoloft PO 25 mg DAILY ABELARDO Administration Sevelamer Carbonate 800 mg 05/01/19 12:00 05/03/19 12:44 Renvela PO 800 mg TID-WM ABELARDO Administration Sodium Chloride 10 ml 04/30/19 09:00 05/03/19 12:01 Flush - Normal Saline IVF Not Given Q12HR [facility] Vitamin B Complex/Vit C/Folic Acid 1 tab 05/01/19 09:00 05/03/19 11:09 Nephro-Sandoval Tablet PO 1 tab DAILY ABELARDO Administration - Exam Eye: PERRL, anicteric sclera Heart: RRR, no murmur, no gallops, no rubs, normal peripheral pulses Respiratory: CTAB, no wheezes, no rales, no ronchi, normal chest expansion, no tachypnea, normal percussion Gastrointestinal: soft, non-tender, non-distended, normal bowel sounds, no palpable masses, no hepatomegaly, no splenomegaly Extremities: no cyanosis, no clubbing Hosp A/P (1) Hypertensive urgency Code(s): I16.0 - HYPERTENSIVE URGENCY Status: Acute (2) CAD (coronary artery disease) Code(s): I25.10 - ATHSCL HEART DISEASE OF [place] CORONARY ARTERY W/O ANG PCTRS Status: Chronic Qualifiers: (3) ESRD (end stage renal disease) on dialysis Code(s): N18.6 - END STAGE RENAL DISEASE; Z99.2 - DEPENDENCE ON RENAL DIALYSIS Status: Chronic (4) COPD (chronic obstructive pulmonary disease) Status: Chronic - Plan * Hypertensive Urgency- her blood pressure is still elevated- will add Procardia XL and change Carvediolol to Labetalol * ESRD- clinically stable continue PD * Altered mental status, and some element of combativeness- I suspect she has some underlying psychiatric condition- she mentions taking Haldol Shots before- will need to get additional information from family when they arrive * COPD- stable
[2019-05-03 16:14] LABS: #Basophils 0.1 thou/uL (0.0-0.2); #Lymphocytes 1.3 thou/uL (1.20-3.40); #Monocytes 0.8 thou/uL (0.11-0.59); #Neutrophils 8.3 thou/uL (1.40-6.50); %Basophils 0.8 % (0.0-1.0); %Eosinophils 0.3 % (0.0-10.0); %Lymphocytes 12.1 % (21.0-51.0); %Monocytes 7.2 % (0.0-10.0); %Neutrophils 79.6 % (42.0-75.0); Hemoglobin 12.8 g/dL (12.0-16.0); Mean Corpuscular HGB CONC 32.9 g/dL (32.0-36.0); Mean Corpuscular Hemoglobin 28.2 pg (27.0-31.0); Mean Corpuscular Volume 85.8 fL (78.0-98.0); Mean Platelet Volume 8.2 fL (7.4-10.4); Platelet Count 205 thou/uL (130-400); Red Blood Cell (RBC) Count 4.52 mill/uL (4.20-5.40); White Blood Cell (WBC) Count 10.5 thou/uL (4.8-10.8)
[2019-05-03 16:33] LABS: Anion Gap 19 mmol/L (10-20); BUN (Urea Nitrogen) 73 mg/dL (9.8-20.1); Calc. Creatinine Clearance 8 mL/min (70-130); Calcium 9.1 mg/dL (7.8-10.44); Carbon Dioxide 20 mmol/L (22-29); Chloride 105 mmol/L (98-107); Estimated GFR-MDRD 7; Glucose 110 mg/dL (70-105); Potassium 3.7 mmol/L (3.5-5.1); Sodium 140 mmol/L (136-145)
[2019-05-03] MEDS: hydrALAZINE 20 MG/ML VIAL SLOW IVP PRN (16:55)
[2019-05-03] MEDS ORDERED: Haloperidol Lactate 5 MG/ML VIAL IM PRN (18:04)
[2019-05-03] MEDS: Labetalol 100 MG TAB PO SCH (21:58)
[2019-05-03] MEDS: Ezetimibe 10 MG TAB PO SCH (22:00)
[2019-05-04] MEDS: hydrALAZINE 20 MG/ML VIAL SLOW IVP PRN (03:25)
[2019-05-04 05:15] LABS: #Eosinphils 0.1 thou/uL (0.0-0.7); #Lymphocytes 1.5 thou/uL (1.20-3.40); #Monocytes 0.8 thou/uL (0.11-0.59); #Neutrophils 7.6 thou/uL (1.40-6.50); %Basophils 0.2 % (0.0-1.0); %Eosinophils 0.7 % (0.0-10.0); %Lymphocytes 14.9 % (21.0-51.0); %Monocytes 7.8 % (0.0-10.0); %Neutrophils 76.4 % (42.0-75.0); Hemoglobin 12.7 g/dL (12.0-16.0); Mean Corpuscular HGB CONC 32.6 g/dL (32.0-36.0); Mean Corpuscular Volume 85.9 fL (78.0-98.0); Mean Platelet Volume 8.2 fL (7.4-10.4); Platelet Count 182 thou/uL (130-400); RBC Distribution Width 14.1 % (11.5-14.5); Red Blood Cell (RBC) Count 4.53 mill/uL (4.20-5.40); White Blood Cell (WBC) Count 9.9 thou/uL (4.8-10.8)
[2019-05-04 05:35] LABS: Anion Gap 16 mmol/L (10-20); BUN (Urea Nitrogen) 66 mg/dL (9.8-20.1); Calc. Creatinine Clearance 9 mL/min (70-130); Carbon Dioxide 23 mmol/L (22-29); Chloride 102 mmol/L (98-107); Estimated GFR-MDRD 7; Glucose 104 mg/dL (70-105); Magnesium 2.2 mg/dL (1.6-2.6); Sodium 138 mmol/L (136-145)
[2019-05-04] MEDS: Calcitriol 0.25 MCG CAP PO SCH (09:22)
[2019-05-04] MEDS: Aspirin 81 mg Enteric Coated Tablet PO SCH (09:22)
[2019-05-04] MEDS: Folic Acid/Vit B Comp W-C PO SCH (09:22)
[2019-05-04] MEDS: cloNIDine 0.3 MG TAB PO SCH ×2 (09:22→20:12)
[2019-05-04] MEDS: Atorvastatin Calcium 40 MG TAB PO SCH (09:22)
[2019-05-04] MEDS: Famotidine 20 MG TAB PO SCH (09:22)
[2019-05-04] MEDS: Clopidogrel Bisulfate 75 MG TAB PO SCH (09:23)
[2019-05-04] MEDS: Docusate 100 MG CAP PO SCH ×2 (09:23→20:12)
[2019-05-04] MEDS: Amlodipine 5 MG TAB PO SCH (09:23)
[2019-05-04] MEDS: Labetalol 100 MG TAB PO SCH ×2 (09:23→20:12)
[2019-05-04] MEDS: Sevelamer Carbonate 800 MG TAB PO SCH ×3 (09:23→17:55)
[2019-05-04] MEDS: Heparin 5,000 UNITS/ML VIAL SC SCH ×2 (09:24→20:13)
[2019-05-04] MEDS ORDERED: Amlodipine 5 MG TAB PO SCH (09:32)
[2019-05-04] MEDS ORDERED: Amlodipine 10 MG TAB PO SCH (09:45)
[2019-05-04] MEDS ORDERED: Potassium Chloride 20 MEQ TAB PO SCH ×2 (11:00→12:30)
--- NOTE | 2019-05-04 12:44 | PRG ---
DATE OF SERVICE: 05/04/2019 SUBJECTIVE: A 54-year-old female being seen for end-stage renal disease. The patient denied nausea, vomiting, or chest pain. OBJECTIVE: CONSTITUTIONAL: The patient is awake and alert. VITAL SIGNS: Afebrile. Pulse 80, breathing 16, blood pressure 146/95. GENERAL APPEARANCE AND MENTAL STATUS: Fair. HEAD/NECK: Normocephalic. Atraumatic. EYES: EOMI. No deformity. EARS: Clear. No ulcers. NOSE: Intact. No lesions. MOUTH: Clear. No discharge. THROAT: Clear. No exudate. LUNGS: Clear. No crackles. CARDIAC: S1, S2. No rub. ABDOMEN: Benign. Bowel sounds positive. GENITALIA/RECTUM: Weiner absent. BACK/EXTREMITIES: Edema 0+. NEUROLOGICAL: Alert and motor intact. SKIN: LYMPHATICS: LABORATORY DATA: Labs reviewed. ASSESSMENT AND PLAN: 1. Stage 6 chronic kidney disease, continue dialysis. 2. Hypertension, stable. 3. Anemia, stable. 4. Hypokalemia, recommend 40 mEq of potassium. Medication based on GFR appropriate. Job ID: [id number]
--- NOTE | 2019-05-04 15:52 | PDOC.HOSPP ---
- Subjective Encounter Date: 05/04/19 Encounter Time: 11:00 Subjective: Mr. Peacock was seen today in follow-up of hypertensive urgency. She does not have any new complaints. She says she is feeling better today. she denies chest pain or difficulty breathing. Nursing staff says she is more cooperative, and wants to start working with PT. - Objective Vital Signs & Weight: Vital Signs (12 hours) Temp Pulse Resp BP BP Pulse Ox 05/04/19 11:41 98.2 F 80 16 146/95 H 99 05/04/19 11:11 75 159/105 H 05/04/19 11:02 159/105 H 05/04/19 09:23 71 164/97 H 05/04/19 09:22 164/94 H 05/04/19 09:14 98.2 F 71 15 164/97 H 97 Weight Weight 129 lb 10.109 oz Most Recent Monitor Data Heart Rate from ECG 80 NIBP 143/86 NIBP BP-Mean 105 Respiration from ECG 19 SpO2 97 I&O: 05/03/19 05/04/19 05/05/19 06:59 06:59 06:59 Intake Total 480 720 240 Output Total 1295 1850 Balance -815 -1130 240 Result Diagrams: 05/04/19 04:51 05/04/19 04:51 Additional Labs: Accuchecks 05/04/19 05/04/19 05/03/19 10:51 05:26 21:59 POC Glucose 100 95 131 H 05/03/19 17:00 POC Glucose 110 Hospitalist ROS - Medication Medications: Active Medications Generic Name Dose Route Start Last Admin Trade Name Paulo PRN Reason Stop Dose Admin Acetaminophen 650 mg 04/29/19 22:53 05/02/19 16:21 Tylenol PO 650 mg Q4H PRN Administration Headache/Fever/Mild Pain (1-3) Aspirin 81 mg 05/01/19 09:00 05/04/19 09:22 Ecotrin PO 81 mg QAM ABELARDO Administration Atorvastatin Calcium 80 mg 05/01/19 09:00 05/04/19 09:22 Lipitor PO 80 mg QAM ABELARDO Administration Calcitriol 0.25 mcg 05/01/19 09:00 05/04/19 09:22 Rocaltrol PO 0.25 mcg DAILY ABELARDO Administration Clonidine 0.3 mg 05/01/19 09:00 05/04/19 09:22 Catapres PO 0.3 mg BID ABELARDO Administration Clopidogrel Bisulfate 75 mg 05/01/19 09:00 05/04/19 09:23 Plavix PO 75 mg DAILY ABELARDO Administration Diphenhydramine HCl 25 mg 05/01/19 08:46 05/01/19 23:27 Benadryl PO 25 mg HS PRN Administration Insomnia Docusate Sodium 100 mg 05/04/19 09:00 05/04/19 09:23 Colace PO 100 mg BID ABELARDO Administration Ezetimibe 10 mg 05/01/19 21:00 05/03/19 22:00 Zetia PO 10 mg HS ABELARDO Administration Famotidine 20 mg 05/03/19 09:00 05/04/19 09:22 Pepcid PO 20 mg DAILY ABELARDO Administration Haloperidol Lactate 5 mg 05/03/19 18:04 05/03/19 18:21 Haldol IM 5 mg Q4H PRN Administration Agitation Heparin Sodium (Porcine) 5,000 units 04/30/19 21:00 05/04/19 09:24 Heparin SC 5,000 units BID ABELARDO Administration Hydralazine HCl 10 mg 05/02/19 05:25 05/04/19 03:25 Apresoline SLOW IVP 10 mg Q6H PRN Administration SBP > 160, DBP > 100 Hydralazine HCl 25 mg 05/03/19 14:51 05/03/19 14:58 Apresoline PO 25 mg TID PRN Administration SBP Greater Than 170 Labetalol HCl 200 mg 05/03/19 21:00 05/04/19 09:23 Normodyne PO 200 mg BID ABELARDO Administration Pantoprazole Sodium 40 mg 05/01/19 09:00 05/04/19 09:23 Protonix PO 40 mg QAM ABELARDO Administration Sertraline HCl 25 mg 05/01/19 09:00 05/04/19 09:23 Zoloft PO 25 mg DAILY ABELARDO Administration Sevelamer Carbonate 800 mg 05/01/19 12:00 05/04/19 11:11 Renvela PO 800 mg TID-WM ABELARDO Administration Sodium Chloride 10 ml 04/30/19 09:00 05/04/19 09:23 Flush - Normal Saline IVF 10 ml Q12HR ABELARDO Administration Vitamin B Complex/Vit C/Folic Acid 1 tab 05/01/19 09:00 05/04/19 09:22 Nephro-Sandoval Tablet PO 1 tab DAILY ABELARDO Administration - Exam Eye: PERRL, anicteric sclera Heart: RRR, no murmur, no gallops, no rubs, normal peripheral pulses Respiratory: CTAB, no wheezes, no rales, no ronchi, normal chest expansion Gastrointestinal: soft, non-tender, non-distended, normal bowel sounds, no palpable masses, no hepatomegaly, no splenomegaly Extremities: no cyanosis, no clubbing, no edema Hosp A/P (1) Hypertensive urgency Code(s): I16.0 - HYPERTENSIVE URGENCY Status: Acute (2) CAD (coronary artery disease) Code(s): I25.10 - ATHSCL HEART DISEASE OF [place] CORONARY ARTERY W/O ANG PCTRS Status: Chronic Qualifiers: (3) ESRD (end stage renal disease) on dialysis Code(s): N18.6 - END STAGE RENAL DISEASE; Z99.2 - DEPENDENCE ON RENAL DIALYSIS Status: Chronic (4) COPD (chronic obstructive pulmonary disease) Status: Chronic - Plan * Hypertensive Urgency- Will increase Amlodipine to 10mg a day * ESRD- clinically stable continue PD * Altered mental status- resolving. I suspect she is close to her baseline. She was able to tell me who her primary Care Provider is. She sees Dr. Rutherford in [place]. We also reviewed her home medications, and she tells me that she recently was taken off several of her home medications due to low blood pressures about 1 month ago. * COPD- stable * Will continue to titrate medications, and hopefully she can be discharged home tomorrow
[2019-05-04] MEDS: Ezetimibe 10 MG TAB PO SCH (20:12)
[2019-05-05 04:42] LABS: #Eosinphils 0.2 thou/uL (0.0-0.7); #Lymphocytes 1.7 thou/uL (1.20-3.40); #Monocytes 0.9 thou/uL (0.11-0.59); #Neutrophils 7.8 thou/uL (1.40-6.50); %Basophils 0.4 % (0.0-1.0); %Eosinophils 1.9 % (0.0-10.0); %Lymphocytes 15.6 % (21.0-51.0); %Monocytes 8.4 % (0.0-10.0); %Neutrophils 73.7 % (42.0-75.0); Hemoglobin 11.8 g/dL (12.0-16.0); Mean Corpuscular HGB CONC 33.3 g/dL (32.0-36.0); Mean Corpuscular Hemoglobin 28.8 pg (27.0-31.0); Mean Corpuscular Volume 86.5 fL (78.0-98.0); Mean Platelet Volume 8.2 fL (7.4-10.4); Platelet Count 178 thou/uL (130-400); RBC Distribution Width 13.6 % (11.5-14.5); Red Blood Cell (RBC) Count 4.11 mill/uL (4.20-5.40); White Blood Cell (WBC) Count 10.6 thou/uL (4.8-10.8)
[2019-05-05] MEDS: hydrALAZINE 20 MG/ML VIAL SLOW IVP PRN (05:12)
[2019-05-05 05:19] VITALS: BMI 21.6
[2019-05-05] MEDS: Heparin 5,000 UNITS/ML VIAL SC SCH (08:27)
[2019-05-05] MEDS: Aspirin 81 mg Enteric Coated Tablet PO SCH (08:28)
[2019-05-05] MEDS: cloNIDine 0.3 MG TAB PO SCH (08:28)
[2019-05-05] MEDS: Atorvastatin Calcium 40 MG TAB PO SCH (08:28)
[2019-05-05] MEDS: Labetalol 100 MG TAB PO SCH (08:28)
[2019-05-05] MEDS: Famotidine 20 MG TAB PO SCH (08:28)
[2019-05-05] MEDS: Calcitriol 0.25 MCG CAP PO SCH (08:29)
[2019-05-05] MEDS: Clopidogrel Bisulfate 75 MG TAB PO SCH (08:29)
[2019-05-05] MEDS: Docusate 100 MG CAP PO SCH (08:29)
[2019-05-05] MEDS: Sevelamer Carbonate 800 MG TAB PO SCH ×2 (08:29→12:57)
[2019-05-05] MEDS: Folic Acid/Vit B Comp W-C PO SCH (08:29)
[2019-05-05] MEDS ORDERED: Amlodipine 10 MG TAB PO SCH (09:00)
--- NOTE | 2019-05-05 10:02 | PDOC.HOSPP ---
- Subjective Encounter Date: 05/05/19 Encounter Time: 10:00 Subjective: Ms. Peacock was seen today in follow-up of hypertensive crisis. She does not have any complaints today. Her mental status continues to improve. - Objective Vital Signs & Weight: Vital Signs (12 hours) Temp Pulse Resp BP BP Pulse Ox 05/05/19 08:29 85 124/84 05/05/19 08:28 85 124/84 05/05/19 05:48 128/79 05/05/19 05:18 165/102 H 05/05/19 05:12 80 165/102 H 05/05/19 03:50 98 F 80 16 157/103 H 99 05/05/19 00:00 97.9 F 80 16 150/94 H 100 05/04/19 22:09 151/97 H Weight Weight 137 lb 14.4 oz Most Recent Monitor Data Heart Rate from ECG 80 NIBP 143/86 NIBP BP-Mean 105 Respiration from ECG 19 SpO2 97 I&O: 05/04/19 05/05/19 05/06/19 06:59 06:59 06:59 Intake Total 720 1450 Output Total 1850 Balance -1130 1450 Result Diagrams: 05/05/19 04:18 05/04/19 04:51 Additional Labs: Accuchecks 05/05/19 05/04/19 05/04/19 06:04 20:02 17:16 POC Glucose 93 150 H 104 05/04/19 10:51 POC Glucose 100 Hospitalist ROS - Medication Medications: Active Medications Generic Name Dose Route Start Last Admin Trade Name Freq PRN Reason Stop Dose Admin Acetaminophen 650 mg 04/29/19 22:53 05/02/19 16:21 Tylenol PO 650 mg Q4H PRN Administration Headache/Fever/Mild Pain (1-3) Amlodipine Besylate 10 mg 05/05/19 09:00 05/05/19 08:29 Norvasc PO 10 mg DAILY ABELARDO Administration Aspirin 81 mg 05/01/19 09:00 05/05/19 08:28 Ecotrin PO 81 mg QAM ABELARDO Administration Atorvastatin Calcium 80 mg 05/01/19 09:00 05/05/19 08:28 Lipitor PO 80 mg QAM ABELARDO Administration Calcitriol 0.25 mcg 05/01/19 09:00 05/05/19 08:29 Rocaltrol PO 0.25 mcg DAILY ABELARDO Administration Clonidine 0.3 mg 05/01/19 09:00 05/05/19 08:28 Catapres PO 0.3 mg BID ABELARDO Administration Clopidogrel Bisulfate 75 mg 05/01/19 09:00 05/05/19 08:29 Plavix PO 75 mg DAILY ABELARDO Administration Diphenhydramine HCl 25 mg 05/01/19 08:46 05/01/19 23:27 Benadryl PO 25 mg HS PRN Administration Insomnia Docusate Sodium 100 mg 05/04/19 09:00 05/05/19 08:29 Colace PO 100 mg BID ABELARDO Administration Ezetimibe 10 mg 05/01/19 21:00 05/04/19 20:12 Zetia PO 10 mg HS ABELARDO Administration Famotidine 20 mg 05/03/19 09:00 05/05/19 08:28 Pepcid PO 20 mg DAILY ABELARDO Administration Haloperidol Lactate 5 mg 05/03/19 18:04 05/03/19 18:21 Haldol IM 5 mg Q4H PRN Administration Agitation Heparin Sodium (Porcine) 5,000 units 04/30/19 21:00 05/05/19 08:27 Heparin SC 5,000 units BID ABELARDO Administration Hydralazine HCl 10 mg 05/02/19 05:25 05/05/19 05:12 Apresoline SLOW IVP 10 mg Q6H PRN Administration SBP > 160, DBP > 100 Hydralazine HCl 25 mg 05/03/19 14:51 05/03/19 14:58 Apresoline PO 25 mg TID PRN Administration SBP Greater Than 170 Labetalol HCl 200 mg 05/03/19 21:00 05/05/19 08:28 Normodyne PO 200 mg BID ABELARDO Administration Pantoprazole Sodium 40 mg 05/01/19 09:00 05/05/19 08:28 Protonix PO 40 mg QAM ABELARDO Administration Sertraline HCl 25 mg 05/01/19 09:00 05/05/19 08:28 Zoloft PO 25 mg DAILY ABELARDO Administration Sevelamer Carbonate 800 mg 05/01/19 12:00 05/05/19 08:29 Renvela PO 800 mg TID-WM ABELARDO Administration Sodium Chloride 10 ml 04/30/19 09:00 05/04/19 20:21 Flush - Normal Saline IVF 10 ml Q12HR ABELARDO Administration Vitamin B Complex/Vit C/Folic Acid 1 tab 05/01/19 09:00 05/05/19 08:29 Nephro-Sandoval Tablet PO 1 tab DAILY ABELARDO Administration - Exam Eye: PERRL, anicteric sclera Heart: RRR, no murmur, no gallops, no rubs Respiratory: CTAB, no wheezes, no rales, no ronchi Hosp A/P (1) Hypertensive urgency Code(s): I16.0 - HYPERTENSIVE URGENCY Status: Acute (2) CAD (coronary artery disease) Code(s): I25.10 - ATHSCL HEART DISEASE OF [place] CORONARY ARTERY W/O ANG PCTRS Status: Chronic Qualifiers: (3) ESRD (end stage renal disease) on dialysis Code(s): N18.6 - END STAGE RENAL DISEASE; Z99.2 - DEPENDENCE ON RENAL DIALYSIS Status: Chronic (4) COPD (chronic obstructive pulmonary disease) Status: Chronic - Plan * Hypertensive Urgency- her blood pressure is much improved * ESRD- stable * Medication changes were discussed with the patient. * Will discharge home today
[2019-05-05 10:14] LABS: Potassium 3.4 mmol/L (3.5-5.1)
--- NOTE | 2019-05-05 10:30 | PRG ---
DATE OF SERVICE: 05/05/2019 SUBJECTIVE: A 54-year-old female, being seen for end-stage renal disease. The patient denied nausea, vomiting, or chest pain. OBJECTIVE: CONSTITUTIONAL: The patient is awake and alert. VITAL SIGNS: Afebrile, pulse 85, breathing 16, blood pressure 122/75. GENERAL APPEARANCE AND MENTAL STATUS: Fair. HEAD/NECK: Normocephalic. Atraumatic. EYES: EOMI. No deformity. EARS: Clear. No ulcers. NOSE: Intact. No lesions. MOUTH: Clear. No discharge. THROAT: Clear. No exudate. LUNGS: Clear. No crackles. CARDIAC: S1, S2. No rub. ABDOMEN: Benign. Bowel sounds positive. GENITALIA/RECTUM: Weiner absent. BACK/EXTREMITIES: Edema 0+. NEUROLOGICAL: Alert and motor intact. SKIN: LYMPHATICS: LABORATORY DATA: Hemoglobin 11.8. Potassium 3. ASSESSMENT AND PLAN: 1. Stage 6 chronic kidney disease, on peritoneal dialysis. 2. Hypokalemia. Recommend high potassium diet and rechecking potassium today. 3. Anemia, stable. 4. Secondary hyperparathyroidism, continue low phosphorus diet. Job ID: [id number]
[2019-05-05 12:03] VITALS: BP 139/83; TEMP 97.7
--- NOTE | 2019-05-06 05:18 | DIS ---
DATE OF ADMISSION: 04/29/2019 DATE OF DISCHARGE: 05/05/2019 PRIMARY CARE PHYSICIAN: Dr. Jauregui in [place]. DISCHARGE DISPOSITION: Home. PRIMARY DISCHARGE DIAGNOSES: 1. Hypertensive crisis. 2. Metabolic encephalopathy secondary to #1. 3. Coronary artery disease. 4. Diabetes mellitus, type 2. 5. Anemia. 6. History of cholelithiasis. DISCHARGE MEDICATIONS: Include: 1. Normodyne 200 mg twice daily. 2. Norvasc 10 mg daily. 3. Renvela 800 mg t.i.d. 4. Zoloft 25 mg daily. 5. Protonix 40 mg daily. 6. Folic acid plus vitamin D and vitamin C one tablet daily. 7. Zetia 10 mg at bedtime. 8. Plavix 75 mg daily. 9. Clonidine 0.3 mg twice daily. 10. Clonazepam 0.5 mg q.p.m. 11. Calcitriol 0.25 mcg daily. 12. Atorvastatin 80 mg daily. 13. Aspirin 81 mg daily. 14. ProAir two puffs q.4 hours as needed. CODE STATUS: Full code. ALLERGIES: NO KNOWN DRUG ALLERGIES. HOSPITAL COURSE: Ms. Peacock is a pleasant 54-year-old female, who was brought to the emergency room due to altered mental status. She was nonverbal, but alert. She was found to have an extremely elevated blood pressure. She was also dehydrated and had a sodium in the 150s. She was admitted for hypertensive crisis. She was placed in the ICU on a Cardene drip. Her director of integrated marketing was consulted due to hypernatremia. This was corrected. Her blood pressure was controlled. During this time, her mental status slowly improved. She had an episode of some combativeness, which was thought to be due to some underlying psychiatric condition. This responded to a couple of doses of IM Haldol. At the time of discharge, her blood pressure was much improved, ranging between 124 and 139 systolic. The changes in her medications were discussed. She was able to tell us when she was going to follow up. She understood the changes in her medications. She plans to follow up with Dr. Jauregui on Wednesday and then also with Dr. Galvin as instructed, and she is being discharged on 05/05/2019. Job ID: [id number]
--- NOTE | 2019-05-06 13:24 | EKG ---
Test Reason : Blood Pressure : / mmHG Vent. Rate : 099 BPM Atrial Rate : 099 BPM P-R Int : 138 ms QRS Dur : 088 ms QT Int : 390 ms P-R-T Axes : 062 034 095 degrees QTc Int : 500 ms Normal sinus rhythm Right atrial enlargement Left ventricular hypertrophy with repolarization abnormality Prolonged QT Abnormal ECG Biatrial enlargement Confirmed by BAM TAYLOR, SALOME Connors ([id number]), managing editor ISRAEL LOYOLA ([id number]) on 05/06/2019 1:24:17 PM Referred By: Confirmed By:SALOME KUHN MD
== END 2019-05-05 13:57 | disposition home or self-care (01) | DRG 304 ==
LOC: ERS 21:16 → CCU 23:33 → 2SE 05-01 16:25
PROVIDERS: ADMIT Hospitalist; ATTEND Hospitalist
PROC: 5A1D70Z Performance of Urinary Filtration, Intermittent, Less than 6 Hours Per Day (ICD-10-PCS; principal; 2019-04-30)
DX: I16.1 Hypertensive emergency (principal); N18.6 End stage renal disease; G93.41 Metabolic encephalopathy; E87.0 Hyperosmolality and hypernatremia; E87.2 Acidosis; N25.81 Secondary hyperparathyroidism of renal origin; E11.22 Type 2 diabetes mellitus with diabetic chronic kidney disease; D63.1 Anemia in chronic kidney disease; F41.9 Anxiety disorder, unspecified; I25.10 Atherosclerotic heart disease of native coronary artery without angina pectoris; D72.829 Elevated white blood cell count, unspecified; M19.90 Unspecified osteoarthritis, unspecified site; I12.0 Hypertensive chronic kidney disease with stage 5 chronic kidney disease or end stage renal disease; E86.0 Dehydration; E78.5 Hyperlipidemia, unspecified; E87.6 Hypokalemia; J44.9 Chronic obstructive pulmonary disease, unspecified; Z99.2 Dependence on renal dialysis; I25.2 Old myocardial infarction; Z95.5 Presence of coronary angioplasty implant and graft; Z79.82 Long term (current) use of aspirin; Z87.891 Personal history of nicotine dependence; Z90.710 Acquired absence of both cervix and uterus; Z79.899 Other long term (current) drug therapy
CPT/HCPCS: 36415; 36416; 71045; 80048; 80053; 82140; 82550; 82553; 83735; 83880; 84132; 84484; 85025; 90945; 93005; 96365; G0257; J0360; J1630; J1644; J3411; J7042; J7050; Q0163; S0028

== ENCOUNTER 2020-07-30 06:06 | Inpatient (IN) | payer MEDICARE, MEDICAID ==
[2020-07-30 06:48] LABS: #Eosinphils 0.1 thou/uL (0.0-0.7); #Lymphocytes 0.7 thou/uL (1.20-3.40); #Neutrophils 16.6 thou/uL (1.40-6.50); %Basophils 0.2 % (0.0-1.0); %Eosinophils 0.8 % (0.0-10.0); %Lymphocytes 3.7 % (21.0-51.0); %Monocytes 5.4 % (0.0-10.0); %Neutrophils 89.9 % (42.0-75.0); Hemoglobin 10.3 g/dL (12.0-16.0); Mean Corpuscular HGB CONC 31.1 g/dL (32.0-36.0); Mean Corpuscular Hemoglobin 28.2 pg (27.0-31.0); Mean Corpuscular Volume 90.6 fL (78.0-98.0); Mean Platelet Volume 7.1 fL (7.4-10.4); Platelet Count 354 thou/uL (130-400); RBC Distribution Width 15.3 % (11.5-14.5); Red Blood Cell (RBC) Count 3.66 mill/uL (4.20-5.40); White Blood Cell (WBC) Count 18.5 thou/uL (4.8-10.8)
[2020-07-30 07:06] LABS: ALT (SGPT) 12 U/L (8-55); AST (SGOT) 25 U/L (5-34); Albumin 3.1 g/dL (3.5-5.0); Alkaline Phosphatase 67 U/L (40-110); Anion Gap 21 mmol/L (10-20); BUN (Urea Nitrogen) 46 mg/dL (9.8-20.1); Bilirubin, Total 0.3 mg/dL (0.2-1.2); Calc. Creatinine Clearance 0 mL/min (70-130); Calcium 8.5 mg/dL (7.8-10.44); Carbon Dioxide 23 mmol/L (22-29); Chloride 100 mmol/L (98-107); Globulin 3.5 g/dL (2.4-3.5); Glucose 105 mg/dL (70-105); Lipase 13 U/L (8-78); Potassium 3.6 mmol/L (3.5-5.1); Protein, Total 6.6 g/dL (6.0-8.3); Sodium 140 mmol/L (136-145)
[2020-07-30] MEDS ORDERED: Ondansetron PF 4 MG/2 ML Vial ONE (07:09)
[2020-07-30] MEDS ORDERED: Morphine 2 MG/ML VIAL ONE (07:09)
[2020-07-30] MEDS ORDERED: Morphine 4 MG/ML VIAL ONE (07:09)
[2020-07-30 07:44] LABS: Bilirubin Negative (Negative); Blood, Urine Negative (Negative); Clarity Clear (Clear); Glucose, Urine (Dipstick) Normal (Negative); Ketone, Urine Negative (Negative); Leukocyte Negative Leu/uL (Negative); Nitrite Negative (Negative); Protein, Urine (Dipstick) 50 mg/dL (Neg-Trace); RBC/HPF 0-3 HPF (0-3); Specific Gravity, Urine 1.009 (1.002-1.036); Squamous Epithelial 0-3 HPF (0-3); Urobilinogen Normal mg/dL (Less than 2); WBC/HPF 0-3 HPF (0-3)
--- NOTE | 2020-07-30 07:45 | CT ---
EXAM: CT ABDOMEN AND PELVIS HISTORY: Right lower quadrant pain. Pus from peritoneal dialysis catheter. COMPARISON: 05/03/2020. Procedure: Multiple contiguous axial images were obtained and a CT of the abdomen and pelvis with IV contrast. C oronal reformats were performed. FINDINGS: Lower Chest: Opacities in lung bases likely represent scar or atelectasis. Vessels: Atherosclerosis of a nonaneurysmal aorta. Heart: Upper normal heart size. No significant pericardial fluid. There are coronary calcifications. Abdomen: Portal vein:Patent. Gallbladder: Surgically absent. Liver: within normal limits. Pancreas: within normal limits. Spleen: within normal limits. Adrenals: within normal limits. Kidneys: Symmetric enhancement of the kidneys. Stable renal cortical hypodensities. Bilaterally no ob structive uropathy. Peritoneum: There is stranding of the abdominal mesentery. Small pockets of free fluid are noted. The re is no evidence of a peritoneal abscess. Bowel: Limited evaluation due to the lack of oral contrast administration. No evidence of bowel obstr uction. Ileocecal junction is unremarkable. Appendix is not appreciated. No obvious inflammatory change of the cecal apex.. Scattered fecal material in a nondistended, nondilated colon. Mesentery and Retroperitoneum: No enlarged mesenteric or retroperitoneal lymph nodes. Abdominal Wall: within normal limits. Pelvis: Reproductive Organs: Surgically absent uterus. Pelvis: No mass, lymphadenopathy or free air. Small amount of free fluid in the pelvis. Bladder: within normal limits. Bones: within normal limits. IMPRESSION: 1. No evidence of intraabdominal abscess. 2. Small amount of fluid in the abdomen and pelvis is presumed to be due to peritoneal dialysis. 3. No evidence of bowel obstruction. No evidence of appendicitis. Appendix is not appreciated. No sec ondary signs of appendicitis. Transcribed Date/Time: 07/30/2020 7:55 AM
[2020-07-30 07:47] LABS: Bacteria/HPF 1+ HPF (None Seen)
[2020-07-30] MEDS ORDERED: cloNIDine 0.1 MG TAB ONE (08:57)
[2020-07-30] MEDS ORDERED: Cefepime 2 GM VIAL ONE (08:57)
[2020-07-30] MEDS ORDERED: Vancomycin 1.5 GRAM/300 ML BAG 1.5 GM in Premix Bag 1 BAG IVPB SCH (09:45)
[2020-07-30] MEDS ORDERED: Iopamidol-370 76% 500 ML 1 ML ONE (10:29)
--- NOTE | 2020-07-30 10:29 | PDOC.HHP ---
Hospitalist HPI - History of Present Illness Abdominal pain History of Present Illness: 41-year-old -[place] female who has ESRD on peritoneal dialysis who came to emergency room with a complaint of diffuse abdominal pain predominantly on the left side, patient was also having creamy discharge from peritoneal dialysis catheter site, patient was feeling weak, she denies any fever or chills, patient had peritoneal dialysis yesterday, patient was started antibiotic yesterday, patient was sent to emergency room for evaluation. In the emergency room patient was hemodynamically stable, she had low-grade fever, nephrology and general surgeon was notified, patient had routine laboratory test done which showed leukocytosis, patient was started on antibiotic therapy ED Course: BP: 161/99, MAP: 119, Pulse: 104, Resp: 17, Temp: 98.1 (Oral), Pain: 10, O2 sat: 97 on (Room Air), Time: 07/30/2020 06:11. VITAL SIGNS WedJul 30, 2020 07:20 ARIK Dior Jennifer BP: 156/98, Pulse: 105, Resp: 24, Pain: 10, O2 sat: 96 on (Room Air), Time: 07/30/2020 07:20. VITAL SIGNS WedJul 30, 2020 08:46 ARIK Dior Jennifer BP: 150/93, Pulse: 100, Resp: 17, Temp: 99.1 (Oral), Pain: 8, O2 sat: 94 on (Room Air), Time: 07/30/2020 08:46. In the emergency room patient is given morphine 6 mg IV push, cefepime and vancomycin as well as Zofran is given. Hospitalist ROS - Review of Systems Constitutional: reports: weakness. denies: fever, chills, sweats, malaise, other ENT: denies: ear pain, ear discharge, nose pain, nose discharge, nose congestion, mouth pain, mouth swelling, throat pain, throat swelling, other Respiratory: denies: cough, dry, shortness of breath, hemoptysis, SOB with excertion, pleuritic pain, sputum, wheezing, other Cardiovascular: denies: chest pain, palpitations, orthopnea, paroxysmal noc. dyspnea, edema, light headedness, other Gastrointestinal: reports: abdominal pain. denies: nausea, vomiting, diarrhea, constipation, melena, hematochezia, other Genitourinary: denies: dysuria, frequency, incontinence, hematuria, retention, other Musculoskeletal: denies: neck pain, shoulder pain, arm pain, back pain, hand pain, leg pain, foot pain, other - Medication Medications: Home Medication: Medication Instructions Recorded Confirmed Type Albuterol Sulfate [Proair HFA] 2 puff INH Q4HR PRN 09/13/14 04/08/20 History Atorvastatin Calcium 80 mg PO QAM 10/12/14 04/08/20 History Ezetimibe 10 mg PO HS 05/22/18 04/08/20 History Aspirin [Aspirin EC] 81 mg PO QAM 08/01/18 04/08/20 History Pantoprazole [Protonix] 40 mg PO QAM 08/01/18 04/08/20 History Calcitriol 0.25 mcg PO DAILY 02/15/19 04/08/20 History Folic Acid/Vit B Complex and C 1 tablet PO DAILY 02/15/19 04/08/20 History [Dialyvite 800] Sertraline HCl 25 mg PO DAILY 02/15/19 04/08/20 History cloNIDine [Catapres] 0.3 mg PO BID 02/15/19 04/08/20 History clonazePAM [Clonazepam] 0.5 mg PO QPM 02/15/19 04/08/20 History Clopidogrel Bisulfate [Plavix] 75 mg PO DAILY 04/30/19 04/08/20 History Amlodipine [Norvasc] 10 mg PO DAILY #30 tab 05/05/19 04/08/20 Rx Labetalol [Normodyne] 200 mg PO BID #60 tab 05/05/19 04/08/20 Rx Sevelamer Carbonate [Renvela] 800 mg PO TID-WM tab 05/05/19 04/08/20 Rx Furosemide 80 mg PO DAILY 04/08/20 04/08/20 History NIFEdipine [Nifedipine ER] 60 mg PO BID 04/08/20 04/08/20 History hydrALAZINE HCl 100 mg PO BID 04/08/20 04/08/20 History levETIRAcetam [Levetiracetam] 500 mg PO DAILY 04/08/20 04/08/20 History Acetaminophen [Tylenol Extra 1,000 mg PO Q6H PRN tab 04/09/20 Rx Strength] traMADol HCl [Ultram] 50 mg PO Q6H PRN #30 tab 04/09/20 Rx Allergies No Known Allergies Allergy (Unverified 02/18/19 17:10) Code status - Full code Hospitalist History - Past Medical History Other Medical History: Diabetes type 2 Hypertension Anemia of renal disease ESRD on peritoneal dialysis Osteoarthritis Cholelithiasis History of [place] in 2010 - Past Surgical History Other Surgical History: Cardiac catheterization with stent placement x4 Hysterectomy Cholecystectomy Peritoneal dialysis catheter placement Appendicectomy Past psychiatric history anxiety and depression - Family History Other Family History: Positive for hypertension to her father, no strong family history of coronary artery disease stroke or cancer - Social History Other Social History: Patient has history of abuse of marijuana periodically, she is former smoker, sh e denies any alcohol abuse, she is - Exam General Appearance: NAD, awake alert Eye: PERRL, anicteric sclera ENT: normocephalic atraumatic, no oropharyngeal lesions Neck: supple, symmetric, no JVD, no thyromegaly, no lymphadenopathy Heart: RRR, no murmur, no gallops, no rubs Respiratory: no wheezes, no rales, no ronchi Gastrointestinal: soft, tender to palpation Gastrointestinal - other findings: Peritoneal dialysis catheter in place Extremities: no cyanosis, no clubbing, no edema Skin: normal turgor, no lesions, no rashes Neurological: no focal deficits Musculoskeletal: normal tone, normal strength, no muscle wasting Psychiatric: normal affect, normal behavior, A&O x 3 Hospitalist Results - Labs Result Diagrams: 07/30/20 06:30 07/30/20 06:30 Lab results: WBC 18.5 thou/uL (4.8-10.8) H 07/30/20 06:30 Hgb 10.3 g/dL (12.0-16.0) L 07/30/20 06:30 Hct 33.2 % (36.0-47.0) L 07/30/20 06:30 MCV 90.6 fL (78.0-98.0) 07/30/20 06:30 Plt Count 354 thou/uL (130-400) 07/30/20 06:30 Neutrophils % 89.9 % (42.0-75.0) H 07/30/20 06:30 Sodium 140 mmol/L (136-145) 07/30/20 06:30 Potassium 3.6 mmol/L (3.5-5.1) 07/30/20 06:30 Chloride 100 mmol/L (98-107) 07/30/20 06:30 Carbon Dioxide 23 mmol/L (22-29) 07/30/20 06:30 BUN 46 mg/dL (9.8-20.1) H 12 06:30 Creatinine 8.31 mg/dL (0.6-1.1) H 07/30/20 06:30 Glucose 105 mg/dL (70-105) 07/30/20 06:30 Lactic Acid 0.9 mmol/L (0.5-2.2) 07/30/20 07:09 Calcium 8.5 mg/dL (7.8-10.44) 07/30/20 06:30 Total Bilirubin 0.3 mg/dL (0.2-1.2) 07/30/20 06:30 AST 25 U/L (5-34) 07/30/20 06:30 ALT 12 U/L (8-55) 07/30/20 06:30 Alkaline Phosphatase 67 U/L (40-110) 07/30/20 06:30 Troponin I Less than 0.010 ng/mL (< 0.028) 07/30/20 07:09 Serum Total Protein 6.6 g/dL (6.0-8.3) 07/30/20 06:30 Albumin 3.1 g/dL (3.5-5.0) L 07/30/20 06:30 Lipase 13 U/L (8-78) 07/30/20 06:30 Urine Ketones Negative mg/dL (Negative) 07/30/20 06:53 Urine Blood Negative (Negative) 07/30/20 06:53 Urine Nitrite Negative (Negative) 07/30/20 06:53 Ur Leukocyte Esterase Negative [place]/uL (Negative) 07/30/20 06:53 Urine RBC 0-3 HPF (0-3) 07/30/20 06:53 Urine WBC 0-3 HPF (0-3) 07/30/20 06:53 Ur Squamous Epith Cells 0-3 HPF (0-3) 07/30/20 06:53 Urine Bacteria 1+ HPF (None Seen) A 07/30/20 06:53 - EKG Interpretation EK lead EKG shows, sinus tachycardia, Interpretation:, Conduction normal, ST s egments normal, T waves normal, [place] normal, Clinical impression:, No acute findings for ischemia at this time. HR:. - Radiology Interpretation CT scan - abdomen Status: image reviewed by me Additional Comment: No evidence of intra-abdominal abscess, small amount of fluid in abdomen and pelvis related with peritoneal dialysis, no evidence of bowel obstruction, no appendicitis Hospitalist H&P A/P - Problem (1) Peritonitis associated with peritoneal dialysis Status: Acute Qualifiers: Encounter type: initial encounter Qualified Code(s): T85.71XA - Infection and inflammatory reaction due to peritoneal dialysis catheter, initial encounter (2) Sepsis Code(s): A41.9 - SEPSIS, UNSPECIFIED ORGANISM Status: Acute Qualifiers: Acute renal failure type: unspecified Severe sepsis shock status: unspecified (3) CAD (coronary artery disease) Code(s): I25.10 - ATHSCL HEART DISEASE OF [place] CORONARY ARTERY W/O ANG PCTRS Status: Chronic Qualifiers: Coronary Disease-Associated Artery/Lesion type: [place] artery [place] vs. transplanted heart: [place] heart Associated angina: without angina Qualified Code(s): I25.10 - Atherosclerotic heart disease of [place] coronary artery wit hout angina pectoris (4) COPD (chronic obstructive pulmonary disease) Status: Chronic (5) Dyslipidemia Code(s): E78.5 - HYPERLIPIDEMIA, UNSPECIFIED Status: Chronic (6) ESRD (end stage renal disease) on dialysis Code(s): N18.6 - END STAGE RENAL DISEASE; Z99.2 - DEPENDENCE ON RENAL DIALYSIS Status: Chronic (7) HTN (hypertension) Code(s): I10 - ESSENTIAL (PRIMARY) HYPERTENSION Status: Chronic Qualifiers: - Plan Plan: Plan Admission to medical floor We will start cefepime based on renal dose We will continue with vancomycin based on renal dose pharmacy to adjust dose of vancomycin and cefepime Follow-up on culture result Her home medication will be reconciled Pain control with morphine as needed basis Nephrology will be consulted for peritoneal dialysis while in hospital, DVT prophylaxis Heparin 5000 subcu twice daily GI prophylaxis Protonix 40 mg p.o. daily CODE STATUS patient is full code Disposition plan based on clinical course.
[2020-07-30 10:32] LABS: WBC/Nucleated-Auto (BF) 10418 uL
[2020-07-30 10:50] LABS: BF Color Colorless; Body Fluid Source Peritoneal Fluid; Clarity Cloudy/Turbid (Clear); Tube # EDTA
[2020-07-30 10:52] LABS: BF Segmented Neutrophils 91 %; Cell Count Non Hematic 8 %; Lymphocytes 1 %
[2020-07-30] MEDS ORDERED: Fluconazole In NaCl,Iso-Osm 200 MG in Premix Bag 1 BAG IVPB SCH ×2 (11:45→16:15)
[2020-07-30 12:35] VITALS: BMI 22.0
[2020-07-30] MEDS ORDERED: Zolpidem Tartrate 5 MG TAB PO PRN (14:16)
[2020-07-30] MEDS ORDERED: Ondansetron ODT 4 MG TAB PO PRN (14:16)
[2020-07-30] MEDS ORDERED: Benzonatate 100 MG CAP PO PRN (14:16)
[2020-07-30] MEDS ORDERED: Diabetic Tussin 200 MG/10 ML UDCUP PO PRN (14:16)
[2020-07-30] MEDS ORDERED: Cepastat Lozenges 1 LOZ PO PRN (14:16)
[2020-07-30] MEDS ORDERED: Ondansetron PF 4 MG/2 ML Vial IVP PRN (14:16)
[2020-07-30] MEDS ORDERED: Loratadine 10 MG TAB PO PRN (14:16)
[2020-07-30] MEDS ORDERED: Calcium Carbonate 500 MG ChewTAB PO PRN (14:16)
[2020-07-30] MEDS ORDERED: Acetaminophen 325 MG TAB PO PRN (14:16)
[2020-07-30] MEDS ORDERED: Senokot S 8.6-50 MG TAB PO PRN (14:16)
[2020-07-30] MEDS ORDERED: Sodium Chloride 0.65% Nasal 44 ML BOT EA NARE PRN (14:16)
[2020-07-30] MEDS ORDERED: hydrALAZINE 20 MG/ML VIAL SLOW IVP PRN (14:16)
[2020-07-30] MEDS ORDERED: Bisacodyl 10 MG SUPP PR PRN (14:16)
[2020-07-30] MEDS ORDERED: Loperamide HCl 2 MG CAP PO PRN (14:16)
[2020-07-30] MEDS ORDERED: Albuterol Sulfate 2.5 mg/3 ml Neb NEB PRN (14:42)
[2020-07-30] MEDS ORDERED: Vancomycin HCl 500 MG in Sodium Chloride 0.9% 100 ML IVPB SCH (15:15)
[2020-07-30] MEDS ORDERED: Vancomycin HCl 750 MG in Sodium Chloride 0.9% 250 ML 250 ML IVPB SCH (15:15)
[2020-07-30] MEDS ORDERED: Vancomycin 1 GM in Premix Bag 1 BAG IVPB SCH (15:15)
[2020-07-30] MEDS ORDERED: HOLD VANCOMYCIN FOR LEVEL >20 FS SCH (15:15)
[2020-07-30] MEDS ORDERED: Vancomycin Sliding Scale 1 EACH FS ONE (15:15)
[2020-07-30] MEDS ORDERED: Vancomycin HCl 250 MG in Sodium Chloride 0.9% 100 ML IVPB SCH (15:15)
[2020-07-30] MEDS: Sevelamer Carbonate 800 MG TAB PO SCH (17:09)
[2020-07-30] MEDS: HYDROcodone/Acetaminophen 5/325 mg Tablet PO PRN ×2 (17:09→21:59)
[2020-07-30] MEDS ORDERED: Non-Formulary Item 1 EACH (Nifedipine [Nifedipine Er] 60 MG Tablet.Er) PO SCH (21:00)
[2020-07-30] MEDS: clonazePAM 0.5 MG TAB PO SCH (21:56)
[2020-07-30] MEDS: Labetalol 100 MG TAB PO SCH (21:56)
[2020-07-30] MEDS: hydrALAZINE 25 MG TAB PO SCH (21:57)
[2020-07-30] MEDS: cloNIDine 0.3 MG TAB PO SCH (21:58)
[2020-07-30] MEDS: Heparin 5,000 UNITS/ML VIAL SC SCH (21:58)
[2020-07-30] MEDS: Ezetimibe 10 MG TAB PO SCH (21:58)
[2020-07-30 21:59] LABS: SARS-CoV-2 MS2 Positive; SARS-CoV-2 N Gene Negative; SARS-CoV-2 S Gene Negative; SARS-CoV-2 by NAA Not Detected (NotDetected); SARS-CoV-2 orf1ab Negative
--- NOTE | 2020-07-30 22:05 | CON ---
DATE OF CONSULTATION: 07/30/2020 CONSULTING PHYSICIAN: Dr. Rivera. REASON FOR CONSULTATION: End-stage renal disease evaluation care and possible peritonitis. REASON FOR ADMISSION: Abdominal pain. HISTORY OF PRESENT ILLNESS: A 55-year-old female with history of end-stage renal disease, on peritoneal dialysis, hypertension, history of CVA, seizure disorder, and noncompliance and psychiatric disorder, came to the hospital with abdominal pain. The patient gets PD at home and is having abdominal pain and started noticing milky white drainage from her catheter and she was evaluated and she is being admitted for possible peritonitis. Her PD fluid has been sent. She is very weak and lethargic. PAST MEDICAL HISTORY: Positive for end-stage renal disease, type 2 diabetes, hypertension, anemia, osteoarthritis. PAST SURGICAL HISTORY: PD catheter placed, appendectomy, cholecystectomy, hysterectomy, cardiac cath. HOME MEDICATIONS: Reviewed. ALLERGIES: NO KNOWN DRUG ALLERGIES. SOCIAL HISTORY: History of smoking and marijuana use in the past. No alcohol use. FAMILY HISTORY: Positive for hypertension. REVIEW OF SYSTEMS: The following complete review of systems was negative, unless otherwise mentioned in the HPI or below: Constitutional: Weight loss or gain, ability to conduct usual activities. Skin: Rash, itching. Eyes: Double vision, pain. ENT/Mouth: Nose bleeding, neck stiffness, pain, tenderness. Cardiovascular: Palpitations, dyspnea on exertion, orthopnea. Respiratory: Shortness of breath, wheezing, cough, hemoptysis, fever or night sweats. Gastrointestinal: Poor appetite, abdominal pain, heartburn, nausea, vomiting, constipation, or diarrhea. Genitourinary: Urgency, frequency, dysuria, nocturia. Musculoskeletal: Pain, swelling. Neurologic/Psychiatric: Anxiety, depression. Allergy/Immunologic: Skin rash, bleeding tendency. PHYSICAL EXAMINATION: GENERAL: This is a well-built female, in no apparent distress. VITAL SIGNS: Temperature degrees, pulse 85, respiratory rate 20, blood pressure 144/87. HEENT: Atraumatic, normocephalic. Oral mucosa moist. NECK: Supple. CV: S1 and S2 heart. Rate and rhythm regular. RESPIRATORY: Clear. GI: Abdomen soft. MUSCULOSKELETAL: No tenderness. No edema. DERMATOLOGIC: No skin rash. NEUROLOGIC: Lethargic. LABORATORY DATA: Hemoglobin is 10.3, white count is 18.5, potassium 3.6, BUN is 46, and creatinine is 8.31. ASSESSMENT AND PLAN: 1. End-stage renal disease, on peritoneal dialysis. The patient might be having fungal peritonitis. I did ask Dr. Patel and Dr. Estevez to evaluate the patient and give further recommendations. If it is fungal peritonitis per final culture, might have to remove the PD catheter. The patient is not stable for PD. Actually, plan is to switch her to hemo at least temporarily until awaiting the cultures. I would also ask the lab to send PD fluid for fungal culture. 2. Hypertension, stable. 3. Hypoalbuminemia. 4. Edema. 5. Anemia. 6. Leukocytosis. 7. We will have ID and General Surgery consult. Continue antibiotics. Might need fungal coverage and also awaiting final results on the PD fluid culture. We will continue to follow. Thank you for the consult. Job ID: [id number]
--- NOTE | 2020-07-31 00:21 | CON ---
DATE OF CONSULTATION: HISTORY OF PRESENT ILLNESS: Jyoti Peacock is a 55-year-old female with poor veins for primary fistula, upper extremity. She has end-stage renal disease on peritoneal dialysis. Exploration of left arm performed in the past, inadequate veins. Ultrasound vein mapping reveals adequate veins right. I have been seeing her over the past years for dialysis access. She has been on dialysis since 2014. She has had multiple hemodialysis catheters. plan is to remove her peritoneal dialysis catheter and place hemodialysis catheter and central line. She understands risks and benefits, consents. ALLERGIES: NONE. MEDICATIONS: 1. Vancomycin. 2. Cefepime. 3. Folic acid. 4. Ezetimibe. 5. Plavix. 6. Calcitriol. 7. Aspirin. 8. Norvasc. 9. Albuterol. 10. Tylenol. 11. Furosemide. 12. Levetiracetam. 13. Hydralazine. 14. Clonazepam. 15. Catapres. 16. Renvela. 17. Protonix. 18. Nifedipine. 19. Normodyne. PAST SURGICAL HISTORY: Peritoneal dialysis catheter was placed and removed. Hemodialysis catheter was placed and removed. Left arm exploration finding inadequate veins for dialysis. Cholecystectomy September 2014 that I performed, history of stroke, on Plavix, followed by neurologist. Cardiac stents placed in 2009 after ID, although stress test recently negative. She has had a cardiac cath in the past. PAST MEDICAL HISTORY: Anxiety, arthritis, end-stage renal disease, on peritoneal dialysis, inadequate veins for primary fistula, depression, diabetes, hypertension. SOCIAL HISTORY: Tobacco, none. Alcohol, none. PHYSICAL EXAMINATION: VITAL SIGNS: Height 5 foot 8 inches, 145 pounds, 22 BMI. 98.6, 95, 148/84. LUNGS: Clear to auscultation. CARDIAC: Regular rate and rhythm. No murmur or gallop. ABDOMEN: Tender diffusely, peritonitis. EXTREMITIES: Unremarkable. ASSESSMENT AND PLAN: End-stage renal disease, on peritoneal dialysis with peritonitis . PLAN: Removal of her PD catheter and placement of hemodialysis catheter and possible central line. Job ID: [id number]
[2020-07-31 05:24] LABS: #Basophils 0.1 thou/uL (0.0-0.2); #Eosinphils 0.4 thou/uL (0.0-0.7); #Lymphocytes 0.8 thou/uL (1.20-3.40); #Monocytes 0.9 thou/uL (0.11-0.59); #Neutrophils 10.7 thou/uL (1.40-6.50); %Eosinophils 2.9 % (0.0-10.0); %Lymphocytes 5.9 % (21.0-51.0); %Monocytes 7.1 % (0.0-10.0); %Neutrophils 83.2 % (42.0-75.0); Hemoglobin 9.5 g/dL (12.0-16.0); Mean Corpuscular HGB CONC 30.6 g/dL (32.0-36.0); Mean Corpuscular Hemoglobin 28.3 pg (27.0-31.0); Mean Corpuscular Volume 92.4 fL (78.0-98.0); Mean Platelet Volume 6.9 fL (7.4-10.4); Platelet Count 297 thou/uL (130-400); RBC Distribution Width 15.3 % (11.5-14.5); Red Blood Cell (RBC) Count 3.35 mill/uL (4.20-5.40); White Blood Cell (WBC) Count 12.9 thou/uL (4.8-10.8)
[2020-07-31 05:38] LABS: ALT (SGPT) 23 U/L (8-55); AST (SGOT) 26 U/L (5-34); Albumin 2.6 g/dL (3.5-5.0); Alkaline Phosphatase 73 U/L (40-110); Anion Gap 19 mmol/L (10-20); BUN (Urea Nitrogen) 53 mg/dL (9.8-20.1); Bilirubin, Total 0.2 mg/dL (0.2-1.2); Calc. Creatinine Clearance 7 mL/min (70-130); Calcium 8.1 mg/dL (7.8-10.44); Carbon Dioxide 22 mmol/L (22-29); Chloride 104 mmol/L (98-107); Glucose 94 mg/dL (70-105); Potassium 3.6 mmol/L (3.5-5.1); Protein, Total 5.6 g/dL (6.0-8.3); Sodium 141 mmol/L (136-145)
[2020-07-31] MEDS: Atorvastatin Calcium 40 MG TAB PO SCH (08:01)
[2020-07-31] MEDS: Labetalol 100 MG TAB PO SCH ×2 (08:01→21:58)
[2020-07-31] MEDS: Clopidogrel Bisulfate 75 MG TAB PO SCH (08:02)
[2020-07-31] MEDS: hydrALAZINE 25 MG TAB PO SCH ×2 (08:02→21:59)
[2020-07-31] MEDS: Amlodipine 10 MG TAB PO SCH (08:03)
[2020-07-31] MEDS: Saccharomyces boulardii 250 MG CAP PO SCH (08:03)
[2020-07-31] MEDS: Folic Acid/Vit B Comp W-C PO SCH (08:03)
[2020-07-31] MEDS: Furosemide 80 MG TAB PO SCH (08:03)
[2020-07-31] MEDS: Sevelamer Carbonate 800 MG TAB PO SCH ×3 (08:03→18:04)
[2020-07-31] MEDS: levETIRAcetam 500 MG TAB PO SCH (08:04)
[2020-07-31] MEDS: Calcitriol 0.25 MCG CAP PO SCH (08:04)
[2020-07-31] MEDS: Heparin 5,000 UNITS/ML VIAL SC SCH ×2 (08:10→21:59)
[2020-07-31] MEDS ORDERED: Aspirin 81 mg Enteric Coated Tablet PO SCH (09:00)
[2020-07-31] MEDS: cloNIDine 0.3 MG TAB PO SCH ×2 (09:13→21:59)
--- NOTE | 2020-07-31 11:51 | PRG ---
DATE OF SERVICE: 07/31/2020 SUBJECTIVE: Patient was seen and examined at bedside and overnight events noted. Patient denies any shortness of breath or chest pain or palpitation. No history of nausea or vomiting or diarrhea or fever or chills or cramps. OBJECTIVE: GENERAL: This is well-built female in no apparent distress. VITAL SIGNS: Temperature 98.3. Heart Rate 73. Respiratory rate 20. Blood pressure 133/82. HEENT: Atraumatic, normocephalic. Oral mucosa is moist. NECK: Supple. CARDIOVASCULAR: S1, S2 heard. Rate and rhythm regular. RESPIRATORY: Clear to auscultation. GASTROINTESTINAL: Abdomen is soft. MUSCULOSKELETAL: No tenderness. No edema. DERMATOLOGIC: No skin rash. NEUROLOGIC: Alert and awake and oriented x3. No focal neurologic deficits. Moving all the extremities. PSYCHIATRIC: Mood and affect normal. LABORATORY DATA: Potassium 3.6, BUN is 53, and creatinine is 9.5. ASSESSMENT AND PLAN: 1. End-stage renal disease, on peritoneal dialysis. Unfortunately, the patient seems to be having fungal peritonitis. I did discuss with the Surgery and Infectious Disease. Recommendation is to remove the peritoneal dialysis catheter since she is having a fungal infection. Actually, culture reported today is having yeast species. We will recommend Diflucan for now and follow up sensitivities. 2. History of hypertension, stable. 3. Hypoalbuminemia. 4. Edema. 5. Anemia. 6. Leukocytosis. Plan is to remove peritoneal dialysis catheter due to fungal peritonitis and the patient could go back to peritoneal dialysis later on and will have a hemodialysis catheter. Surgery is aware, and we will start on hemodialysis and have foster care case manager contact her dialysis facility to switch her to hemodialysis at least temporarily until peritonitis is resolved and then consider resuming peritoneal dialysis with a new catheter. Appreciate help from Infectious Disease and General Surgery. We will follow. Job ID: [id number]
[2020-07-31] MEDS: Fluconazole In NaCl,Iso-Osm 400 MG in Premix Bag 1 BAG IVPB SCH (12:24)
[2020-07-31 14:15] LABS: HBSAg Index 0.15 S/CO (0-0.99); Hep B Core Total Ab Non-Reactive (NonReactive); Hep B Core Total Index 0.07 S/CO (0-0.79); Hep B Surf Ag Non-Reactive S/CO (NonReactive); Hep C IgG Ab Non-Reactive (NonReactive); Hep C Index 0.04 S/CO (0-0.79)
[2020-07-31] MEDS ORDERED: Bupivacaine PF 0.5% 30 ML VIAL ONE (18:14)
[2020-07-31] MEDS ORDERED: Heparin 10,000 UNITS/ 10 ML VIAL ONE (18:14)
[2020-07-31] MEDS ORDERED: Lidocaine 1% w/Epinephrine 1:100K 20 ML VIAL ONE (18:14)
[2020-07-31] MEDS ORDERED: Sodium Chloride 0.9% 30 ML ONE (18:14)
[2020-07-31] MEDS ORDERED: Midazolam HCl 2 mg/2 ml Vial ONE (18:16)
[2020-07-31] MEDS ORDERED: Ketamine 50 MG/ML (10ML VIAL) ONE (18:16)
[2020-07-31] MEDS ORDERED: Propofol 500 MG/50 ML VIAL ONE (18:16)
[2020-07-31] MEDS ORDERED: Fentanyl 100 MCG/2 ML VIAL ONE (18:16)
--- NOTE | 2020-07-31 19:44 | PDOC.HOSPP ---
- Subjective Encounter Date: 07/31/20 Encounter Time: 14:00 Subjective: Patient seen and examined for abdominal pain due to peritonitis. Some nausea. Continues to have abdominal pain moderate in intensity. Denies any fever or chills. - Objective Vital Signs & Weight: Vital Signs (12 hours) Temp Pulse Resp BP Pulse Ox 07/31/20 16:24 98.5 F 95 18 122/69 91 L 07/31/20 12:00 98.4 F 95 20 114/63 95 07/31/20 08:00 98.3 F 93 20 133/82 96 Weight Admit Weight 145 lb Weight 145 lb Result Diagrams: 07/31/20 04:49 07/31/20 04:49 Additional Labs: Abnormal Lab Results - Last 48 hrs 07/30/20 06:30: Anion Gap 21 H, BUN 46 H, Creatinine 8.31 H, Albumin 3.1 L, Albumin/Globulin Ratio 0.9 L 07/30/20 06:30: WBC 18.5 H, RBC 3.66 L, Hgb 10.3 L, Hct 33.2 L, MCHC 31.1 L, RDW 15.3 H, MPV 7.1 L, Neutrophils % 89.9 H, Lymphocytes % 3.7 L, Neutrophils # 16.6 H, Lymphocytes # 0.7 L, Monocytes # 1.0 H 07/30/20 06:53: Urine Protein 50 A, Urine Bacteria 1+ A 07/30/20 09:15: Fluid Clarity Cloudy/Turbid H 07/31/20 04:49: BUN 53 H, Creatinine 9.59 H, Serum Total Protein 5.6 L, Albumin 2.6 L, Albumin/Globulin Ratio 0.9 L 07/31/20 04:49: WBC 12.9 H, RBC 3.35 L, Hgb 9.5 L, Hct 31.0 L, MCHC 30.6 L, RDW 15.3 H, MPV 6.9 L, Neutrophils % 83.2 H, Lymphocytes % 5.9 L, Neutrophils # 10.7 H, Lymphocytes # 0.8 L, Monocytes # 0.9 H Microbiology - Entire Visit 07/30/20 09:15 Dialysate Fluid Culture - Pending Body Fluid Culture - Preliminary Yeast species 07/30/20 06:53 Urine clean catch Urine Culture - Preliminary NO GROWTH AT 24 HOURS 07/30/20 07:15 Venous blood - Right Arm Blood Culture - Preliminary Specimen has been received and culture in progress. No Growth to date. 07/30/20 07:15 Venous blood - Left Hand Blood Culture - Preliminary Specimen has been received and culture in progress. No Growth to date. Radiology Reviewed by me: Yes (CT abdomenreviewed) Hospitalist ROS - Review of Systems Cardiovascular: denies: chest pain, palpitations, orthopnea, paroxysmal noc. dyspnea, edema, light headedness, other Gastrointestinal: denies: nausea, vomiting, abdominal pain, diarrhea, c onstipation, melena, hematochezia, other - Medication Medications: Active Medications Generic Name Dose Route Start Last Admin Trade Name Freq PRN Reason Stop Dose Admin Hydrocodone Bitart/Acetaminophen 1 tab 07/30/20 14:16 07/30/20 21:59 Hydrocodone/Acetaminophen 5/325 Mg Tablet PO 1 tab Q4H PRN Administration Moderate Pain (4-6) Amlodipine Besylate 10 mg 07/31/20 09:00 07/31/20 08:03 Amlodipine 10 Mg Tab PO 10 mg DAILY ABELARDO Administration Aspirin 81 mg 07/31/20 09:00 07/31/20 08:01 Aspirin 81 Mg Enteric Coated Tablet PO 81 mg QAM ABELARDO Administration Atorvastatin Calcium 80 mg 07/31/20 09:00 07/31/20 08:01 Atorvastatin Calcium 40 Mg Tab PO 80 mg QAM ABELARDO Administration Calcitriol 0.25 mcg 07/31/20 09:00 07/31/20 08:04 Calcitriol 0.25 Mcg Cap PO 0.25 mcg DAILY ABELARDO Administration Clonazepam 0.5 mg 07/30/20 21:00 07/30/20 21:56 Clonazepam 0.5 Mg Tab PO 0.5 mg QPM ABELARDO Administration Clonidine 0.3 mg 07/30/20 21:00 07/31/20 09:13 Clonidine 0.3 Mg Tab PO 0.3 mg BID ABELARDO Administration Clopidogrel Bisulfate 75 mg 07/31/20 09:00 07/31/20 08:02 Clopidogrel Bisulfate 75 Mg Tab PO 75 mg DAILY ABELARDO Administration Ezetimibe 10 mg 07/30/20 21:00 07/30/20 21:58 Ezetimibe 10 Mg Tab PO 10 mg HS ABELARDO Administration Furosemide 80 mg 07/31/20 09:00 07/31/20 08:03 Furosemide 80 Mg Tab PO 80 mg DAILY ABELARDO Administration Heparin Sodium (Porcine) 5,000 units 07/30/20 21:00 07/31/20 08:10 Heparin 5,000 Units/Ml Vial SC Not Given Q12HR ABELARDO Hydralazine HCl 100 mg 07/30/20 21:00 07/31/20 08:02 Hydralazine 25 Mg Tab PO 100 mg BID ABELARDO Administration Fluconazole/Sodium Chloride 200 mls @ 100 mls/hr 07/31/20 12:00 07/31/20 12:24 400 mg/ Device IVPB 200 mls 1200 ABELARDO Administration Labetalol HCl 200 mg 07/30/20 21:00 07/31/20 08:01 Labetalol 100 Mg Tab PO 200 mg BID ABELARDO Administration Levetiracetam 500 mg 07/31/20 09:00 07/31/20 08:04 Levetiracetam 500 Mg Tab PO 500 mg DAILY ABELARDO Administration Pantoprazole Sodium 40 mg 07/31/20 09:00 07/31/20 08:02 Pantoprazole 40 Mg Tab PO 40 mg QAM ABELARDO Administration Saccharomyces Boulardii 250 mg 07/31/20 09:00 07/31/20 08:03 Saccharomyces Boulardii 250 Mg Cap PO 250 mg DAILY ABELARDO Administration Sertraline HCl 25 mg 07/31/20 09:00 07/31/20 08:02 Sertraline Hcl 25 Mg Tab PO 25 mg DAILY ABELARDO Administration Sevelamer Carbonate 800 mg 07/30/20 17:00 07/31/20 18:04 Sevelamer Carbonate 800 Mg Tab PO Not Given TID-WM ABELARDO Sodium Chloride 10 ml 07/30/20 21:00 07/31/20 08:10 Flush - Normal Saline 10 Ml Syringe IVF Not Given Q12HR ABELARDO Vitamin B Complex/Vit C/Folic Acid 1 tab 07/31/20 09:00 07/31/20 08:03 Folic Acid/Vit B Comp W-C PO 1 tab DAILY ABELARDO Administration - Exam General Appearance: ill appearing Heart: RRR, no gallops, no rubs, normal peripheral pulses Respiratory: no wheezes, no rales, no ronchi, normal chest expansion Gastrointestinal: soft, no guarding, no rigidity, tender to palpation Extremities: no cyanosis, no clubbing, no edema Extremities - other findings: No calf tenderness Neurological: no new deficit Psychiatric: normal affect, A&O x 3 Hosp A/P - Plan DVT proph w/SCDs Peritoneal dialysis catheter associated fungal peritonitis with sepsisPOA Diabetes mellitus type 2diet controlled Hypertension Metabolic acidosis Anemia due to renal disease End-stage renal disease on peritoneal dialysis Coronary artery disease Plan: Peritoneal dialysis catheter removal today. Dialysis will be switched to hemodialysis. Patient is currently n.p.o. Started on fluconazole. Continue empiric vancomycin and cefepime. Monitor vancomycin level. Continue aspirin, clonidine, Plavix, labetalol, a.m. labs amlodipine and other medications as above
[2020-07-31] MEDS ORDERED: Acetaminophen 500 MG TAB PO PRN (20:06)
--- NOTE | 2020-07-31 20:40 | RAD ---
PORTABLE CHEST: 07/31/20 HISTORY: Central line placement. COMPARISON: 04/08/20 exam. Heart size is enlarged. There has been placement of a right sided subclavian line. Catheter tip overl ies the right atrium. The left sided Hemosplit catheter is unchanged in position. No pneumothorax. Heart size is enlarged. Pulmonary vessels are engorged. IMPRESSION: 1. Cardiomegaly with pulmonary edema changes. 2. Right sided central line placement. No pneumothorax. POS: ANGIE
[2020-07-31] MEDS: Ezetimibe 10 MG TAB PO SCH (21:59)
[2020-07-31] MEDS: clonazePAM 0.5 MG TAB PO SCH (21:59)
--- NOTE | 2020-08-01 02:01 | OP ---
DATE OF PROCEDURE: 07/31/2020 PREOPERATIVE DIAGNOSES: Fungal peritonitis; peritoneal dialysis catheter in place; end-stage renal disease; failed left arm fistula vein is too small, probably [place] vein fistula. Will probably need a prosthetic graft in the future. POSTOPERATIVE DIAGNOSES: Fungal peritonitis; peritoneal dialysis catheter in place; end-stage renal disease; failed left arm fistula vein is too small, probably [place] vein fistula. Will probably need a prosthetic graft in the future. PROCEDURE PERFORMED: Placement of left IJ cuffed tunneled hemodialysis catheter, placement of right subclavian vein triple-lumen catheter, noting right IJ to be thrombosed from previous catheters. Removal of PD catheter. ANESTHESIA: TIVA, local 0.5% Marcaine with 30 mL mixed with 1% Xylocaine with epinephrine 20 mL. DESCRIPTION OF PROCEDURE: The patient was taken to the operating room, where under intravenous sedation, neck and chest, abdomen and PD catheter were prepared with ChloraPrep and draped in routine fashion. Local anesthetic was infiltrated in the skin and subcutaneous tissue about the operative sites. Using ultrasound guidance, the right internal jugular vein was noted to be occluded. The left internal jugular vein was cannulated with trocar catheter, J-wire threaded, trocar catheter was removed. Skin site enlarged sharply. Stab incision was made over the left chest. Using the tunneling device, the pre-curved [employer] cuffed tunneled hemodialysis catheter tunneled between two incisions, placed the fabric cuff beneath the skin and catheter secured with two interrupted suture of 3-0 nylon. Small and medium size dilators were placed over the J-wire into the internal jugular vein. Dilator and Peel-Away sheath placed over the J-wire under fluoroscopic visualization in the superior vena cava. Dilator and J-wire removed. Catheter placed with Peel-Away sheath. Peel-Away sheath removed. Platysma approximated with 4-0 Monocryl, skin with subdermal 4-0 Monocryl and [place] glue applied. Each port aspirated blood, flushed with saline solution. Heparinized saline solution with 1000 units of heparin per mL, indicating volume of the port. Sterile dressings applied. In right subclavian vein, triple-lumen catheter placed under Seldinger technique securing the catheter with 3-0 silk. Sterile dressing applied. Fluoroscopic images revealed good line placement. Attention was then turned to the PD catheter for removal. PD catheter and cuff dissected free. Catheter removed intact. Gauze dressing applied. The patient tolerated the procedure well. Job ID: [id number]
[2020-08-01] MEDS: HYDROcodone/Acetaminophen 5/325 mg Tablet PO PRN ×4 (02:59→20:55)
[2020-08-01 03:03] LABS: HBSAB Concentration 10.82 mIU/mL
[2020-08-01 06:57] LABS: #Basophils 0.2 thou/uL (0.0-0.2); #Eosinphils 0.4 thou/uL (0.0-0.7); #Lymphocytes 0.9 thou/uL (1.20-3.40); #Monocytes 1.3 thou/uL (0.11-0.59); #Neutrophils 10.2 thou/uL (1.40-6.50); %Basophils 1.3 % (0.0-1.0); %Eosinophils 3.1 % (0.0-10.0); %Lymphocytes 7.3 % (21.0-51.0); %Monocytes 9.9 % (0.0-10.0); %Neutrophils 78.4 % (42.0-75.0); Hemoglobin 9.1 g/dL (12.0-16.0); Mean Corpuscular HGB CONC 32.3 g/dL (32.0-36.0); Mean Corpuscular Hemoglobin 28.9 pg (27.0-31.0); Mean Corpuscular Volume 89.5 fL (78.0-98.0); Mean Platelet Volume 6.9 fL (7.4-10.4); Platelet Count 327 thou/uL (130-400); RBC Distribution Width 15.5 % (11.5-14.5); Red Blood Cell (RBC) Count 3.16 mill/uL (4.20-5.40)
[2020-08-01 07:24] LABS: ALT (SGPT) 17 U/L (8-55); AST (SGOT) 19 U/L (5-34); Albumin 2.6 g/dL (3.5-5.0); Alkaline Phosphatase 76 U/L (40-110); Anion Gap 21 mmol/L (10-20); BUN (Urea Nitrogen) 62 mg/dL (9.8-20.1); Bilirubin, Total 0.2 mg/dL (0.2-1.2); Calc. Creatinine Clearance 6 mL/min (70-130); Calcium 8.1 mg/dL (7.8-10.44); Carbon Dioxide 19 mmol/L (22-29); Chloride 103 mmol/L (98-107); Globulin 3.2 g/dL (2.4-3.5); Glucose 76 mg/dL (70-105); Potassium 4.4 mmol/L (3.5-5.1); Protein, Total 5.8 g/dL (6.0-8.3); Sodium 139 mmol/L (136-145)
[2020-08-01] MEDS ORDERED: Cefepime 2 GM in Sodium Chloride 0.9% 100 ML IVPB SCH (09:00)
[2020-08-01 11:11] LABS: Vancomycin, Trough 33.6 ug/mL
[2020-08-01] MEDS: Sevelamer Carbonate 800 MG TAB PO SCH ×3 (11:18→18:28)
[2020-08-01] MEDS: Amlodipine 10 MG TAB PO SCH (11:19)
[2020-08-01] MEDS: cloNIDine 0.3 MG TAB PO SCH ×2 (11:19→20:55)
[2020-08-01] MEDS: Atorvastatin Calcium 40 MG TAB PO SCH (11:19)
[2020-08-01] MEDS: Calcitriol 0.25 MCG CAP PO SCH (11:19)
[2020-08-01] MEDS: Clopidogrel Bisulfate 75 MG TAB PO SCH (11:19)
[2020-08-01] MEDS: Folic Acid/Vit B Comp W-C PO SCH (11:19)
[2020-08-01] MEDS: Furosemide 80 MG TAB PO SCH (11:19)
[2020-08-01] MEDS: Labetalol 100 MG TAB PO SCH (11:20)
[2020-08-01] MEDS: Saccharomyces boulardii 250 MG CAP PO SCH (11:20)
[2020-08-01] MEDS: hydrALAZINE 25 MG TAB PO SCH ×2 (11:20→20:55)
[2020-08-01] MEDS: levETIRAcetam 500 MG TAB PO SCH (11:20)
[2020-08-01] MEDS: Heparin 5,000 UNITS/ML VIAL SC SCH ×2 (11:20→20:55)
--- NOTE | 2020-08-01 11:53 | PRG ---
DATE OF SERVICE: 08/01/2020 SUBJECTIVE: Patient was seen and examined at bedside and overnight events noted. Patient denies any shortness of breath or chest pain or palpitation. No history of nausea or vomiting or diarrhea or fever or chills or cramps. OBJECTIVE: General: This is a well-built female, in no apparent distress. Vital Signs: Temperature 97.9. Heart Rate 89. Respiratory rate 16. Blood pressure 128/75. HEENT: Atraumatic, normocephalic. Oral mucosa is moist. Neck: Supple. Cardiovascular: S1, S2 heard. Rate and rhythm regular. Respiratory: Clear to auscultation. Gastrointestinal: Abdomen is soft. Musculoskeletal: No tenderness. No edema. Dermatologic: No skin rash. Neurologic: Alert and awake and oriented x3. No focal neurologic deficits. Moving all the extremities. Psychiatric: Mood and affect normal. LABORATORY DATA: Potassium 4.4, BUN is 62, and creatinine is 10.8. ASSESSMENT AND PLAN: 1. End-stage renal disease, was on peritoneal dialysis, now switch to hemodialysis due to possible fungal peritonitis. Continue on Diflucan and follow up with ID recommendations. I think it is okay to stop the vancomycin and cefepime. Vancomycin level is high anyway. 2. History of hypertension, hypoalbuminemia. 3. Edema. 4. Anemia of chronic disease. 5. Leukocytosis. Continue antifungal therapy. Appreciate help from General Surgery for removal of PD catheter and placement of hemodialysis catheter. We will follow ID recommendations moving forward. Plan discussed with Dr. Thornton. Job ID: [id number]
[2020-08-01] MEDS: traMADol HCl 50 MG TAB PO PRN (14:23)
[2020-08-01] MEDS: Fluconazole In NaCl,Iso-Osm 400 MG in Premix Bag 1 BAG IVPB SCH (15:45)
--- NOTE | 2020-08-01 18:00 | PDOC.HOSPP ---
- Subjective Encounter Date: 08/01/20 Encounter Time: 11:30 Subjective: Patient seen and examined during dialysis. Denies any chest pain or shortness of breath. No nausea, vomiting or fever. Abdominal pain improving. - Objective Vital Signs & Weight: Vital Signs (12 hours) Temp Pulse Resp BP Pulse Ox 08/01/20 17:14 98.9 F 96 12 157/84 H 92 L 08/01/20 14:00 99 143/73 H 08/01/20 11:20 88 08/01/20 11:19 88 Weight Admit Weight 145 lb Weight 145 lb Result Diagrams: 08/01/20 06:31 08/01/20 06:31 Additional Labs: Abnormal Lab Results - Last 48 hrs 07/31/20 04:49: BUN 53 H, Creatinine 9.59 H, Serum Total Protein 5.6 L, Albumin 2.6 L, Albumin/Globulin Ratio 0.9 L 07/31/20 04:49: WBC 12.9 H, RBC 3.35 L, Hgb 9.5 L, Hct 31.0 L, MCHC 30.6 L, RDW 15.3 H, MPV 6.9 L, Neutrophils % 83.2 H, Lymphocytes % 5.9 L, Neutrophils # 10.7 H, Lymphocytes # 0.8 L, Monocytes # 0.9 H 08/01/20 06:31: Carbon Dioxide 19 L, Anion Gap 21 H, BUN 62 H, Creatinine 10.80 H, Serum Total Protein 5.8 L, Albumin 2.6 L, Albumin/Globulin Ratio 0.8 L 08/01/20 06:31: WBC 13.0 H, RBC 3.16 L, Hgb 9.1 L, Hct 28.3 L, RDW 15.5 H, MPV 6.9 L, Neutrophils % 78.4 H, Lymphocytes % 7.3 L, Basophils % 1.3 H, Neutrophils # 10.2 H, Lymphocytes # 0.9 L, Monocytes # 1.3 H 08/01/20 10:05: Vancomycin Trough 33.6 H* Microbiology - Entire Visit 07/30/20 07:15 Venous blood - Right Arm Blood Culture - Preliminary NO GROWTH AT 48 HOURS 07/30/20 07:15 Venous blood - Left Hand Blood Culture - Preliminary NO GROWTH AT 48 HOURS 07/30/20 06:53 Urine clean catch Urine Culture - Final NO GROWTH AT 48 HOURS 07/30/20 09:15 Dialysate Fluid Culture - Pending Body Fluid Culture - Preliminary Yeast species Hospitalist ROS - Review of Systems Constitutional: denies: fever, chills, sweats, weakness, malaise, other Cardiovascular: denies: chest pain, palpitations, orthopnea, paroxysmal noc. dyspnea, edema, light headedness, other - Medication Medications: Active Medications Generic Name Dose Route Start Last Admin Trade Name Freq PRN Reason Stop Dose Admin Hydrocodone Bitart/Acetaminophen 1 tab 07/30/20 14:16 08/01/20 13:35 Hydrocodone/Acetaminophen 5/325 Mg Tablet PO 1 tab Q4H PRN Administration Moderate Pain (4-6) Amlodipine Besylate 10 mg 07/31/20 09:00 08/01/20 11:19 Amlodipine 10 Mg Tab PO Not Given DAILY ABELARDO Atorvastatin Calcium 80 mg 07/31/20 09:00 08/01/20 11:19 Atorvastatin Calcium 40 Mg Tab PO Not Given QAM ABELARDO Calcitriol 0.25 mcg 07/31/20 09:00 08/01/20 11:19 Calcitriol 0.25 Mcg Cap PO Not Given DAILY ABELARDO Clonazepam 0.5 mg 07/30/20 21:00 07/31/20 21:59 Clonazepam 0.5 Mg Tab PO 0.5 mg QPM ABELARDO Administration Clonidine 0.3 mg 07/30/20 21:00 08/01/20 11:19 Clonidine 0.3 Mg Tab PO Not Given BID ABELARDO Clopidogrel Bisulfate 75 mg 07/31/20 09:00 08/01/20 11:19 Clopidogrel Bisulfate 75 Mg Tab PO Not Given DAILY ABELARDO Ezetimibe 10 mg 07/30/20 21:00 07/31/20 21:59 Ezetimibe 10 Mg Tab PO 10 mg HS ABELARDO Administration Furosemide 80 mg 07/31/20 09:00 08/01/20 11:19 Furosemide 80 Mg Tab PO Not Given DAILY ABELARDO Heparin Sodium (Porcine) 5,000 units 07/30/20 21:00 08/01/20 11:20 Heparin 5,000 Units/Ml Vial SC Not Given Q12HR ABELARDO Hydralazine HCl 100 mg 07/30/20 21:00 08/01/20 11:20 Hydralazine 25 Mg Tab PO Not Given BID ABELARDO Cefepime HCl 2 gm/ Sodium 100 mls @ 200 mls/hr 08/01/20 09:00 08/01/20 13:36 Chloride IVPB 100 mls Q2D ABELARDO Administration Fluconazole/Sodium Chloride 200 mls @ 100 mls/hr 07/31/20 12:00 08/01/20 15:45 400 mg/ Device IVPB 200 mls 1200 ABELARDO Administration Labetalol HCl 200 mg 07/30/20 21:00 08/01/20 11:20 Labetalol 100 Mg Tab PO Not Given BID ABELARDO Levetiracetam 500 mg 07/31/20 09:00 08/01/20 11:20 Levetiracetam 500 Mg Tab PO Not Given DAILY ABELARDO Pantoprazole Sodium 40 mg 07/31/20 09:00 08/01/20 11:20 Pantoprazole 40 Mg Tab PO Not Given QAM ABELARDO Saccharomyces Boulardii 250 mg 07/31/20 09:00 08/01/20 11:20 Saccharomyces Boulardii 250 Mg Cap PO Not Given DAILY ABELARDO Sertraline HCl 25 mg 07/31/20 09:00 08/01/20 11:20 Sertraline Hcl 25 Mg Tab PO Not Given DAILY ABELARDO Sevelamer Carbonate 800 mg 07/30/20 17:00 08/01/20 12:05 Sevelamer Carbonate 800 Mg Tab PO Not Given TID-WM ABELARDO Sodium Chloride 10 ml 07/30/20 21:00 08/01/20 11:21 Flush - Normal Saline 10 Ml Syringe IVF Not Given Q12HR ABELARDO Tramadol HCl 50 mg 07/31/20 20:06 08/01/20 14:23 Tramadol Hcl 50 Mg Tab PO 50 mg Q4H PRN Administration Breakthrough Pain Vitamin B Complex/Vit C/Folic Acid 1 tab 07/31/20 09:00 08/01/20 11:19 Folic Acid/Vit B Comp W-C PO Not Given DAILY ABELARDO - Exam General Appearance: NAD Neck: supple, no JVD Heart: RRR, no gallops Respiratory: no wheezes, no ronchi Gastrointestinal: soft, normal bowel sounds, no guarding, no rigidity, tender to palpation Extremities: no cyanosis, no clubbing Neurological: no new deficit Hosp A/P - Plan DVT proph w/SCDs Peritoneal dialysis catheter associated fungal peritonitis with sepsis S/p peritoneal dialysis catheter removal on 07/31 Diabetes mellitus type 2 Hypertension Metabolic acidosis Anemia due to renal disease End-stage renal disease on peritoneal dialysis Coronary artery disease Plan: Discontinue vancomycin. Continue fluconazole with cefepime.. Outpatient dialysis set up. Continue amlodipine, aspirin, Lipitor, clonidine, Plavix and other medications as above. Consult walking program. Recheck labs in a.m. Peritoneal fluid culture positive for yeast
[2020-08-01] MEDS ORDERED: Fluconazole In NaCl,Iso-Osm 400 MG in Premix Bag 1 BAG IVPB SCH (19:30)
[2020-08-01] MEDS: Ezetimibe 10 MG TAB PO SCH (20:55)
[2020-08-01] MEDS: clonazePAM 0.5 MG TAB PO SCH (20:55)
[2020-08-02] MEDS: Labetalol 100 MG TAB PO SCH ×3 (01:02→21:17)
[2020-08-02 06:47] LABS: #Basophils 0.1 thou/uL (0.0-0.2); #Eosinphils 0.4 thou/uL (0.0-0.7); #Lymphocytes 1.3 thou/uL (1.20-3.40); #Monocytes 1.3 thou/uL (0.11-0.59); #Neutrophils 10.5 thou/uL (1.40-6.50); %Basophils 0.5 % (0.0-1.0); %Eosinophils 2.8 % (0.0-10.0); %Lymphocytes 9.8 % (21.0-51.0); %Monocytes 9.5 % (0.0-10.0); %Neutrophils 77.4 % (42.0-75.0); Hemoglobin 10.2 g/dL (12.0-16.0); Mean Corpuscular HGB CONC 31.7 g/dL (32.0-36.0); Mean Corpuscular Volume 91.2 fL (78.0-98.0); Mean Platelet Volume 6.8 fL (7.4-10.4); Platelet Count 330 thou/uL (130-400); RBC Distribution Width 15.6 % (11.5-14.5); Red Blood Cell (RBC) Count 3.51 mill/uL (4.20-5.40); White Blood Cell (WBC) Count 13.5 thou/uL (4.8-10.8)
[2020-08-02 07:11] LABS: Anion Gap 17 mmol/L (10-20); BUN (Urea Nitrogen) 31 mg/dL (9.8-20.1); Calc. Creatinine Clearance 10 mL/min (70-130); Calcium 8.4 mg/dL (7.8-10.44); Carbon Dioxide 22 mmol/L (22-29); Chloride 104 mmol/L (98-107); Glucose 106 mg/dL (70-105); Potassium 3.4 mmol/L (3.5-5.1); Sodium 140 mmol/L (136-145)
[2020-08-02] MEDS ORDERED: Fluconazole In NaCl,Iso-Osm 200 MG in Premix Bag 1 BAG IVPB SCH (09:00)
[2020-08-02] MEDS: Clopidogrel Bisulfate 75 MG TAB PO SCH (10:04)
[2020-08-02] MEDS: hydrALAZINE 25 MG TAB PO SCH ×2 (10:05→21:13)
[2020-08-02] MEDS: Atorvastatin Calcium 40 MG TAB PO SCH (10:05)
[2020-08-02] MEDS: Calcitriol 0.25 MCG CAP PO SCH (10:06)
[2020-08-02] MEDS: Heparin 5,000 UNITS/ML VIAL SC SCH ×2 (10:07→21:09)
[2020-08-02] MEDS: Sevelamer Carbonate 800 MG TAB PO SCH ×3 (10:10→17:32)
[2020-08-02] MEDS: Amlodipine 10 MG TAB PO SCH (10:10)
[2020-08-02] MEDS: cloNIDine 0.3 MG TAB PO SCH ×2 (10:11→21:16)
[2020-08-02] MEDS: Folic Acid/Vit B Comp W-C PO SCH (10:11)
[2020-08-02] MEDS: levETIRAcetam 500 MG TAB PO SCH (10:13)
[2020-08-02] MEDS: Furosemide 80 MG TAB PO SCH (10:13)
[2020-08-02] MEDS: Saccharomyces boulardii 250 MG CAP PO SCH (10:13)
[2020-08-02] MEDS: traMADol HCl 50 MG TAB PO PRN (10:20)
--- NOTE | 2020-08-02 15:21 | PRG ---
DATE OF SERVICE: 08/02/2020 Jyoti Peacock is doing well. Her abdomen feels better since having her PD catheter removed. At this point, she should come to see me in my office in 2 to 4 weeks to schedule another PD catheter placement laparoscopically. I will see her as needed this hospitalization. Please call as needed. Job ID: [id number]
[2020-08-02] MEDS ORDERED: Cefepime 0.5 GM, Admixture Fee 1 EACH in Sodium Chloride 0.9% 100 ML IVPB SCH (17:00)
--- NOTE | 2020-08-02 17:55 | PRG ---
DATE OF SERVICE: 08/02/2020 SUBJECTIVE: Patient was seen and examined at bedside and overnight events noted. Patient denies any shortness of breath or chest pain or palpitation. No history of nausea or vomiting or diarrhea or fever or chills or cramps. OBJECTIVE: GENERAL: This is a well-built female, in no apparent distress. VITAL SIGNS: Temperature 98.1. Heart Rate 91. Respiratory rate 18. Blood pressure 139/84. HEENT: Atraumatic, normocephalic. Oral mucosa is moist. NECK: Supple. CARDIOVASCULAR: S1, S2 heard. Rate and rhythm regular. RESPIRATORY: Clear to auscultation. GASTROINTESTINAL: Abdomen is soft. MUSCULOSKELETAL: No tenderness. No edema. DERMATOLOGIC: No skin rash. NEUROLOGIC: Alert and awake and oriented x3. No focal neurologic deficits. Moving all the extremities. PSYCHIATRIC: Mood and affect normal. LABORATORY DATA: Potassium 3.4, BUN is 31, and creatinine is 6.5. ASSESSMENT AND PLAN: 1. End-stage renal disease. Continue on hemodialysis as tolerated. 2. Fungal peritonitis. Need antibiotics and need to continue Diflucan per ID recommendations. 3. History of hypertension. 4. Edema. 5. Anemia of chronic disease. 6. Leukocytosis. Continue fungal coverage per ID recommendations. Job ID: [id number]
--- NOTE | 2020-08-02 19:37 | CON ---
DATE OF CONSULTATION: 08/02/2020 REASON FOR CONSULTATION: Fungal peritonitis. HISTORY OF PRESENT ILLNESS: A 55-year-old, who has a history of type 2 diabetes, hypertension, and end-stage renal disease, who has been on peritoneal dialysis for 2 years now and developed progressively worsening diffuse abdominal pain over the past few days with a decrease in the output of the peritoneal dialysis fluid associated with a creamy discharge, she was admitted to the hospital on July 30. Initial findings included BP 160/99, pulse 104, respirations 17, temperature 98.1, and O2 saturation 97. Breath sounds were clear. The abdominal examination was not remarkable and the initial findings included also white cell count 18.5, hemoglobin 10.3, platelets 354, and 89% neutrophils. Creatinine 8.31 and liver profile normal. Albumin 3.1. Urinalysis was not particularly remarkable. Ascitic fluid with 10,000 wbc's with predominance of mature neutrophils. Apparently, a sample obtained outside the hospital had yielded yeast from the cultures, so I discussed the case with Dr. oTussaint and recommended removal of the peritoneal dialysis catheter, which was accomplished by Dr. Estevez. She has a triple-lumen catheter in the right side and tunneled hemodialysis catheter in the left IJ. She is feeling better, rattling machine tender in the abdominal site, but no headaches. Chronic visual symptoms related to diabetic retinopathy. No sore throat, odynophagia, or dysphagia. No cough or sputum production. No chest pain. No back pain. She does not have much urine output. No joint symptoms. No neurological symptoms. PAST MEDICAL HISTORY: Type 2 diabetes, hypertension, osteoarthritis, cholelithiasis, and end-stage renal disease on peritoneal dialysis for the past 2 years. PAST SURGICAL HISTORY: Cholecystectomy and PD catheter placement and now the hemodialysis catheter placement. She has a triple-lumen catheter in the right IJ and appendectomy. SOCIAL HISTORY: Lives in [place] by herself in an apartment. Former smoker. ALLERGIES: NONE. MEDICATIONS: 1. Ventolin. 2. Norvasc. 3. Lipitor. 4. Tessalon. 5. Dulcolax. 6. Rocaltrol. 7. Klonopin. 8. Catapres. 9. Zetia. 10. Fluconazole IV. 11. Few other p.r.n. medications. FAMILY HISTORY: Noncontributory except for diabetes. PHYSICAL EXAMINATION: VITAL SIGNS: Temperature has been normal, BP 130/80, heart rate 91, respiratory rate 19, and O2 saturation 96. GENERAL: Does not appear in distress. SKIN: The catheter is noted in the L IJ side and the PD catheter has been removed. No areas of skin breakdown otherwise. HEENT: Ocular movements conjugate. Oral cavity normal. NECK: No jugular vein distention. LUNGS: With basilar crackles, probably interstitial fluid. HEART: S1 and S2. Regular rate without murmurs. ABDOMEN: Soft, not distended with [id number] tenderness in the left side. No organomegaly. No bladder distention. EXTREMITIES: No joint inflammatory activity. Pulses are diminished in dorsalis pedis. Plantar responses are flexor. No edema. She moves all extremities. LABORATORY DATA: White cell count is down to 13.5, hemoglobin 10, platelets 330, and 77% neutrophils. Creatinine 6.59. The culture from dialysis fluid revealed Mere tropicalis. There is a chest x-ray from July 31 with cardiomegaly, pulmonary edema changes, and then the abdomen and pelvis CT, no evidence of any intraabdominal abscess, small amount of fluid in the abdomen and pelvis. No obstruction. No appendicitis. ASSESSMENT: 1. End-stage renal disease secondary to type 2 diabetes, previously on peritoneal dialysis. 2. Continuous ambulatory peritoneal dialysis associated peritonitis due to Mere tropicalis. DISCUSSION: Now, the catheter has been removed which was the proper approach since fungal CAPD peritonitis is not amenable to conservative management. She will complete treatment with oral Diflucan, dose adjusted for renal function at 200 mg daily for a total of 21 days, so I think she has another 19 days to complete the therapy and she can be transitioned to oral Diflucan now in the hospital in preparation for discharge. Job ID: [id number] [facility]ITAL[facility]
--- NOTE | 2020-08-02 21:08 | PDOC.HOSPP ---
- Subjective Encounter Date: 08/02/20 Encounter Time: 12:00 Subjective: Patient seen and examined for fungal peritonitis due to peritoneal dialysis catheter. Abdominal pain improved. Denies any nausea or vomiting. - Objective Vital Signs & Weight: Vital Signs (12 hours) Temp Pulse Resp BP Pulse Ox 08/02/20 15:30 98.1 F 91 19 139/84 96 08/02/20 11:32 98.4 F 86 20 142/81 H 99 08/02/20 10:10 91 08/02/20 10:06 91 08/02/20 10:05 91 Weight Admit Weight 145 lb Weight 145 lb I&O: 08/01/20 08/02/20 08/03/20 06:59 06:59 06:59 Intake Total 540 Output Total 300 Balance 540 -300 Result Diagrams: 08/02/20 06:22 08/02/20 06:22 Hospitalist ROS - Review of Systems Cardiovascular: denies: chest pain, palpitations, orthopnea, paroxysmal noc. dyspnea, edema, light headedness, other Gastrointestinal: denies: nausea, vomiting, abdominal pain, diarrhea, constipation, melena, hematochezia, other - Medication Medications: Active Medications Generic Name Dose Route Start Last Admin Trade Name Freq PRN Reason Stop Dose Admin Hydrocodone Bitart/Acetaminophen 1 tab 07/30/20 14:16 08/01/20 20:55 Hydrocodone/Acetaminophen 5/325 Mg Tablet PO 1 tab Q4H PRN Administration Moderate Pain (4-6) Amlodipine Besylate 10 mg 07/31/20 09:00 08/02/20 10:10 Amlodipine 10 Mg Tab PO 10 mg DAILY ABELARDO Administration Atorvastatin Calcium 80 mg 07/31/20 09:00 08/02/20 10:05 Atorvastatin Calcium 40 Mg Tab PO 80 mg QAM ABELARDO Administration Calcitriol 0.25 mcg 07/31/20 09:00 08/02/20 10:06 Calcitriol 0.25 Mcg Cap PO 0.25 mcg DAILY ABELARDO Administration Clonazepam 0.5 mg 07/30/20 21:00 08/01/20 20:55 Clonazepam 0.5 Mg Tab PO 0.5 mg QPM ABELARDO Administration Clonidine 0.3 mg 07/30/20 21:00 08/02/20 10:11 Clonidine 0.3 Mg Tab PO 0.3 mg BID ABELARDO Administration Clopidogrel Bisulfate 75 mg 07/31/20 09:00 08/02/20 10:04 Clopidogrel Bisulfate 75 Mg Tab PO 75 mg DAILY ABELARDO Administration Ezetimibe 10 mg 07/30/20 21:00 08/01/20 20:55 Ezetimibe 10 Mg Tab PO 10 mg HS ABELARDO Administration Furosemide 80 mg 07/31/20 09:00 08/02/20 10:13 Furosemide 80 Mg Tab PO 80 mg DAILY ABELARDO Administration Heparin Sodium (Porcine) 5,000 units 07/30/20 21:00 08/02/20 10:07 Heparin 5,000 Units/Ml Vial SC 5,000 units Q12HR ABELARDO Administration Hydralazine HCl 100 mg 07/30/20 21:00 08/02/20 10:05 Hydralazine 25 Mg Tab PO 100 mg BID ABELARDO Administration Labetalol HCl 200 mg 07/30/20 21:00 08/02/20 10:06 Labetalol 100 Mg Tab PO 200 mg BID ABELARDO Administration Levetiracetam 500 mg 07/31/20 09:00 08/02/20 10:13 Levetiracetam 500 Mg Tab PO 500 mg DAILY ABELARDO Administration Pantoprazole Sodium 40 mg 07/31/20 09:00 08/02/20 10:05 Pantoprazole 40 Mg Tab PO 40 mg QAM ABELARDO Administration Saccharomyces Boulardii 250 mg 07/31/20 09:00 08/02/20 10:13 Saccharomyces Boulardii 250 Mg Cap PO 250 mg DAILY ABELARDO Administration Sertraline HCl 25 mg 07/31/20 09:00 08/02/20 10:07 Sertraline Hcl 25 Mg Tab PO 25 mg DAILY ABELARDO Administration Sevelamer Carbonate 800 mg 07/30/20 17:00 08/02/20 17:32 Sevelamer Carbonate 800 Mg Tab PO 800 mg TID-WM ABELARDO Administration Sodium Chloride 10 ml 07/30/20 21:00 08/02/20 10:15 Flush - Normal Saline 10 Ml Syringe IVF Not Given Q12HR ABELARDO Tramadol HCl 50 mg 07/31/20 20:06 08/02/20 10:20 Tramadol Hcl 50 Mg Tab PO 50 mg Q4H PRN Administration Breakthrough Pain Vitamin B Complex/Vit C/Folic Acid 1 tab 07/31/20 09:00 08/02/20 10:11 Folic Acid/Vit B Comp W-C PO 1 tab DAILY ABELARDO Administration Zolpidem Tartrate 5 mg 07/30/20 14:16 08/01/20 20:55 Zolpidem Tartrate 5 Mg Tab PO 5 mg HSPRN PRN Administration Insomnia - Exam General Appearance: NAD Heart: RRR, no gallops Respiratory: no wheezes, no ronchi Gastrointestinal: soft, non-distended Extremities: no cyanosis Neurological: no new deficit Hosp A/P - Plan DVT proph w/SCDs Peritoneal dialysis catheter associated fungal peritonitis with sepsis S/p peritoneal dialysis catheter removal on 07/31 Diabetes mellitus type 2 Hypertension Metabolic acidosis Anemia due to renal disease End-stage renal disease on peritoneal dialysis Coronary artery disease Plan: Hemodialysis started. Patient has been approved for outpatient hemodialysis starting Wednesday. She will undergo hemodialysis tomorrow and can probably be discharged on oral fluconazole 200 mg daily for another 19 days (total of 21 days per infectious disease). Cefepime discontinued. Continue amlodipine, Lipitor, Plavix and other medications as above
[2020-08-02] MEDS: clonazePAM 0.5 MG TAB PO SCH (21:15)
[2020-08-02] MEDS: Ezetimibe 10 MG TAB PO SCH (21:16)
[2020-08-03] MEDS: HYDROcodone/Acetaminophen 5/325 mg Tablet PO PRN ×2 (07:59→13:45)
[2020-08-03] MEDS: Amlodipine 10 MG TAB PO SCH (07:59)
[2020-08-03] MEDS: Saccharomyces boulardii 250 MG CAP PO SCH (07:59)
[2020-08-03] MEDS: Atorvastatin Calcium 40 MG TAB PO SCH (08:00)
[2020-08-03] MEDS: cloNIDine 0.3 MG TAB PO SCH (08:00)
[2020-08-03] MEDS: Sevelamer Carbonate 800 MG TAB PO SCH ×2 (08:00→13:48)
[2020-08-03] MEDS: Folic Acid/Vit B Comp W-C PO SCH (08:00)
[2020-08-03] MEDS: Furosemide 80 MG TAB PO SCH (08:00)
[2020-08-03] MEDS: Calcitriol 0.25 MCG CAP PO SCH (08:01)
[2020-08-03] MEDS: Clopidogrel Bisulfate 75 MG TAB PO SCH (08:01)
[2020-08-03] MEDS: levETIRAcetam 500 MG TAB PO SCH (08:01)
[2020-08-03] MEDS ORDERED: Fluconazole 100 MG TAB PO SCH (09:00)
[2020-08-03] MEDS: hydrALAZINE 25 MG TAB PO SCH (09:00)
[2020-08-03] MEDS: Labetalol 100 MG TAB PO SCH (09:01)
--- NOTE | 2020-08-03 10:14 | PDOC.DS.DS ---
Provider - Provider Date of Admission: 07/30/20 09:27 Admitting Provider: Ange Rivera MD Consultations: General Surgery (Dr. Estevez), Infectious Disease (Dr. Patel), Nephrology (Dr. Toussaint) Primary Care Physician: Ynes Jauregui MD Course - Hospital Course Hospital Course: Discharge diagnosis: Sepsis Peritoneal dialysis catheter associated fungal peritonitisS/p peritoneal dialysis catheter removal on 07/31 Diabetes mellitus type 2 Hypertension Metabolic acidosis Anemia due to renal disease End-stage renal disease on peritoneal dialysis Coronary artery disease Hospital course: Patient is a pleasant 55-year-old lady who was admitted to the hospital on July 30, 2020 for peritonitis associated with peritoneal dialysis and sepsis. Nephrology and general surgery services were consulted. On July 31, peritoneal dialysis catheter was removed. She had a left IJ cuffed tunneled hemodialysis catheter, right subclavian vein triple-lumen catheter placed. She was started on hemodialysis. Peritoneal fluid culture grew presumptive Mere tropicalis. She was seen by infectious disease service. She is being discharged home on fluconazole, total 21 days treatment. Preliminary blood cultures are negative at the time of this dictation, and she is advised to follow-up with primary care provider for the final blood culture results. Many thanks for allowing me to participate in your patient's care. Please feel free to contact me with any questions or concerns. Discharge destination: Home Total amount of time spent coordinating this discharge: 32 minutes Resuscitation Status: 07/30/20 14:16 Resuscitation Status Routine Resuscitation Status: FULL: Full Resuscitation - Labs Lab Results: 08/02/20 06:22 08/02/20 06:22 Abnormal Lab Results - Last 48 hrs 08/01/20 10:05: Vancomycin Trough 33.6 H* 08/02/20 06:22: WBC 13.5 H, RBC 3.51 L, Hgb 10.2 L, Hct 32.0 L, MCHC 31.7 L, RDW 15.6 H, MPV 6.8 L, Neutrophils % 77.4 H, Lymphocytes % 9.8 L, Neutrophils # 10.5 H, Monocytes # 1.3 H 08/02/20 06:22: Potassium 3.4 L, BUN 31 H, Creatinine 6.59 H Microbiology - Entire Visit 07/30/20 09:15 Dialysate Fluid Culture - Pending Body Fluid Culture - Final Presumptive Mere tropicalis 07/30/20 07:15 Venous blood - Right Arm Blood Culture - Preliminary NO GROWTH AT 48 HOURS 07/30/20 07:15 Venous blood - Left Hand Blood Culture - Preliminary NO GROWTH AT 48 HOURS 07/30/20 06:53 Urine clean catch Urine Culture - Final NO GROWTH AT 48 HOURS - Physical Exam Vitals: Vital Signs (12 hours) Temp Pulse Resp BP Pulse Ox 08/03/20 08:05 97.6 F 87 20 169/66 H 95 08/03/20 04:00 98.5 F 90 18 154/74 H 97 08/03/20 00:00 98.6 F 91 16 159/91 H Weight Admit Weight 145 lb Weight 145 lb Physical Exam: The patient was seen and examined on the day of discharge. Plan - Discharge Medications Prescriptions: Fluconazole 200 mg PO DAILY #19 tablet Home Medications: Medication Instructions Recorded Confirmed Type Albuterol Sulfate [Proair HFA] 2 puff INH Q4HR PRN 09/13/14 07/30/20 History Atorvastatin Calcium 80 mg PO QAM 10/12/14 07/30/20 History Ezetimibe 10 mg PO HS 05/22/18 07/30/20 History Aspirin [Aspirin EC] 81 mg PO QAM 08/01/18 07/30/20 History Pantoprazole [Protonix] 40 mg PO QAM 08/01/18 07/30/20 History Calcitriol 0.25 mcg PO DAILY 02/15/19 07/30/20 History Folic Acid/Vit B Complex and C 1 tablet PO DAILY 02/15/19 07/30/20 History [Dialyvite 800] Sertraline HCl 25 mg PO DAILY 02/15/19 07/30/20 History cloNIDine [Catapres] 0.3 mg PO BID 02/15/19 07/30/20 History clonazePAM [Clonazepam] 0.5 mg PO QPM 02/15/19 07/30/20 History Clopidogrel Bisulfate [Plavix] 75 mg PO DAILY 04/30/19 07/30/20 History Amlodipine [Norvasc] 10 mg PO DAILY #30 tab 05/05/19 07/30/20 Rx Labetalol [Normodyne] 200 mg PO BID #60 tab 05/05/19 07/30/20 Rx Sevelamer Carbonate [Renvela] 800 mg PO TID-WM tab 05/05/19 07/30/20 Rx Furosemide 80 mg PO DAILY 04/08/20 07/30/20 History NIFEdipine [Nifedipine ER] 60 mg PO BID 04/08/20 07/30/20 History hydrALAZINE HCl 100 mg PO BID 04/08/20 07/30/20 History levETIRAcetam [Levetiracetam] 500 mg PO DAILY 04/08/20 07/30/20 History Acetaminophen [Tylenol Extra 1,000 mg PO Q6H PRN tab 04/09/20 07/30/20 Rx Strength] Fluconazole 200 mg PO DAILY #19 tablet 08/03/20 Rx Allergies: No Known Allergies Allergy (Verified 07/30/20 12:22) - Discharge Instructions Activity:: Activity as Tolerated Nourishment:: Heart Healthy Diet, Renal Diet - Follow up Plan Referrals: Balaji Estevez MD [Active] - 2-3 Weeks Ynes Jauregui MD [Primary Care Provider] - 3 Days Disposition: HOME Quality - Care Measures CORE MEASURES:: N/A
[2020-08-03 12:16] VITALS: BP 136/90; TEMP 98
[2020-08-03] MEDS ORDERED: Heparin 10,000 UNITS/ 10 ML VIAL ONE (12:46)
[2020-08-03 12:53] LABS: #Eosinphils 0.5 thou/uL (0.0-0.7); #Lymphocytes 1.2 thou/uL (1.20-3.40); #Monocytes 0.8 thou/uL (0.11-0.59); #Neutrophils 8.7 thou/uL (1.40-6.50); %Basophils 0.3 % (0.0-1.0); %Eosinophils 4.6 % (0.0-10.0); %Lymphocytes 10.5 % (21.0-51.0); %Neutrophils 77.6 % (42.0-75.0); Mean Corpuscular HGB CONC 31.9 g/dL (32.0-36.0); Mean Corpuscular Hemoglobin 28.2 pg (27.0-31.0); Mean Corpuscular Volume 88.6 fL (78.0-98.0); Mean Platelet Volume 6.7 fL (7.4-10.4); Platelet Count 372 thou/uL (130-400); RBC Distribution Width 15.8 % (11.5-14.5); White Blood Cell (WBC) Count 11.3 thou/uL (4.8-10.8)
[2020-08-03 13:20] LABS: Anion Gap 19 mmol/L (10-20); BUN (Urea Nitrogen) 11 mg/dL (9.8-20.1); Calc. Creatinine Clearance 20 mL/min (70-130); Calcium 8.5 mg/dL (7.8-10.44); Carbon Dioxide 24 mmol/L (22-29); Chloride 100 mmol/L (98-107); Glucose 75 mg/dL (70-105); Potassium 3.9 mmol/L (3.5-5.1); Sodium 139 mmol/L (136-145)
--- NOTE | 2020-08-03 17:12 | PRG ---
DATE OF SERVICE: 08/03/2020 SUBJECTIVE: Patient was seen and examined at bedside and overnight events noted. Patient denies any shortness of breath or chest pain or palpitation. No history of nausea or vomiting or diarrhea or fever or chills or cramps. OBJECTIVE: GENERAL: This is a well-built female, in no apparent distress. VITAL SIGNS: Temperature 98. Heart rate 82. Respiratory rate 18. Blood pressure 136/90. HEENT: Atraumatic, normocephalic. Oral mucosa is moist NECK: Supple. CARDIOVASCULAR: S1, S2 heard. Rate and rhythm regular. RESPIRATORY: Clear to auscultation. GASTROINTESTINAL: Abdomen is soft. MUSCULOSKELETAL: No tenderness. No edema. DERMATOLOGIC: No skin rash. NEUROLOGIC: Alert and awake and oriented X3. No focal neurologic deficits. Moving all the extremities. PSYCHIATRIC: Mood and affect normal. LABORATORY DATA: Potassium 3.9, BUN is 11, creatinine is 3.2. ASSESSMENT AND PLAN: 1. End-stage renal disease. Continue on hemodialysis as tolerated. 2. Fungal peritonitis. PD catheter removed and continue Diflucan for a total of three weeks. 3. History of hypertension and edema. 4. Anemia of chronic disease. The patient is set up for outpatient hemodialysis and will continue hemodialysis on Wednesday, Wednesday, and Wednesday. The patient had dialysis today, seen during dialysis, tolerated well. Job ID: [id number]
== END 2020-08-03 14:00 | disposition home or self-care (01) | DRG 919 ==
LOC: ERS 06:06 → 3SE 09:27
PROVIDERS: ADMIT Internal Medicine; ATTEND Internal Medicine
PROC: 0WPGX3Z Removal of Infusion Device from Peritoneal Cavity, External Approach (ICD-10-PCS; principal; 2020-07-31)
PROC: 0JH60XZ Insertion of Tunneled Vascular Access Device into Chest Subcutaneous Tissue and Fascia, Open Approach (ICD-10-PCS; 2020-07-31)
PROC: 02HV33Z Insertion of Infusion Device into Superior Vena Cava, Percutaneous Approach (ICD-10-PCS; 2020-07-31)
PROC: B548ZZA Ultrasonography of Superior Vena Cava, Guidance (ICD-10-PCS; 2020-07-31)
PROC: 5A1D70Z Performance of Urinary Filtration, Intermittent, Less than 6 Hours Per Day (ICD-10-PCS; 2020-07-31)
DX: T85.71XA Infection and inflammatory reaction due to peritoneal dialysis catheter, initial encounter (principal); A41.9 Sepsis, unspecified organism; N18.6 End stage renal disease; K65.8 Other peritonitis; R65.20 Severe sepsis without septic shock; I12.0 Hypertensive chronic kidney disease with stage 5 chronic kidney disease or end stage renal disease; E87.2 Acidosis; N17.9 Acute kidney failure, unspecified; Y84.1 Kidney dialysis as the cause of abnormal reaction of the patient, or of later complication, without mention of misadventure at the time of the procedure; E11.22 Type 2 diabetes mellitus with diabetic chronic kidney disease; D63.1 Anemia in chronic kidney disease; I25.10 Atherosclerotic heart disease of native coronary artery without angina pectoris; F41.9 Anxiety disorder, unspecified; E78.5 Hyperlipidemia, unspecified; E88.09 Other disorders of plasma-protein metabolism, not elsewhere classified; M19.90 Unspecified osteoarthritis, unspecified site; F32.9 Major depressive disorder, single episode, unspecified; Z90.710 Acquired absence of both cervix and uterus; Z99.2 Dependence on renal dialysis; I25.2 Old myocardial infarction; Z90.49 Acquired absence of other specified parts of digestive tract; Z87.891 Personal history of nicotine dependence; Z79.82 Long term (current) use of aspirin; Z79.899 Other long term (current) drug therapy; Z79.51 Long term (current) use of inhaled steroids; Z95.5 Presence of coronary angioplasty implant and graft
CPT/HCPCS: 36415; 71045; 74177; 80048; 80053; 80202; 81003; 81015; 83605; 83690; 84484; 85025; 85060; 86704; 86706; 86803; 87040; 87070; 87086; 87102; 87205; 87340; 87635; 89051; 90935; 93005; 96365; 96367; 96375; C1751; C1752; G0257; J0692; J1450; J1642; J1644; J2250; J2270; J2405; J2704; J3010; J3370; J3490; Q9967; S0020; U0003

== ENCOUNTER 2020-09-16 00:07 | Observation (INO) | payer MEDICARE, MEDICAID ==
[2020-09-16 00:52] LABS: #Basophils 0.1 thou/uL (0.0-0.2); #Eosinphils 0.3 thou/uL (0.0-0.7); #Lymphocytes 1.5 thou/uL (1.20-3.40); #Monocytes 0.7 thou/uL (0.11-0.59); #Neutrophils 9.5 thou/uL (1.40-6.50); %Basophils 0.5 % (0.0-1.0); %Eosinophils 2.5 % (0.0-10.0); %Lymphocytes 12.3 % (21.0-51.0); %Monocytes 5.5 % (0.0-10.0); %Neutrophils 79.2 % (42.0-75.0); Mean Corpuscular HGB CONC 31.2 g/dL (32.0-36.0); Mean Corpuscular Hemoglobin 28.8 pg (27.0-31.0); Mean Corpuscular Volume 92.2 fL (78.0-98.0); Mean Platelet Volume 7.3 fL (7.4-10.4); Platelet Count 291 thou/uL (130-400); RBC Distribution Width 16.9 % (11.5-14.5); Red Blood Cell (RBC) Count 3.13 mill/uL (4.20-5.40)
[2020-09-16] MEDS ORDERED: Metoprolol Tartrate 5 MG/5 ML VIAL ONE (01:09)
[2020-09-16 01:14] LABS: ALT (SGPT) 10 U/L (8-55); AST (SGOT) 18 U/L (5-34); Albumin 4.1 g/dL (3.5-5.0); Alkaline Phosphatase 69 U/L (40-110); Anion Gap 20 mmol/L (10-20); BUN (Urea Nitrogen) 54 mg/dL (9.8-20.1); Bilirubin, Total 0.4 mg/dL (0.2-1.2); Calc. Creatinine Clearance 0 mL/min (70-130); Calcium 9.2 mg/dL (7.8-10.44); Carbon Dioxide 21 mmol/L (22-29); Chloride 103 mmol/L (98-107); Globulin 3.5 g/dL (2.4-3.5); Glucose 96 mg/dL (70-105); Potassium 4.1 mmol/L (3.5-5.1); Protein, Total 7.6 g/dL (6.0-8.3); Sodium 140 mmol/L (136-145)
[2020-09-16] MEDS ORDERED: hydrALAZINE 20 MG/ML VIAL ONE ×2 (01:34→04:16)
[2020-09-16] MEDS ORDERED: cloNIDine 0.1 MG TAB ONE (02:57)
--- NOTE | 2020-09-16 02:58 | PDOC.FPRHP ---
- History of Present Illness Chief Complaint: SOB History of Present Illness: Pt is a 55yo female with hx of ESRD on HD MWF who presents with SOB. Pt went to dialysis on Wednesday and then began developing SOB on Wednesday. SOB worse with activity. In ED was found to have SBP in 190s-210. Pt states she is compliant with all medications even stating she knows not to take certain medications on days of dialysis. Was given hydralazine, clonidine and lopressor in ED. Dr Toussaint was consulted from the ED and plans for dialysis. Pt was very anxious appearing. She denies CP, fever, cough, congestion, N/V/D. Of note, pt has history of peritonitis due to aleshia tropicalis in July 2020 when she was still receiving peritoneal dialysis. PD catheter was removed and tunneled cath placed. She says she has surgery next week to replace the PD catheter. ED Course: clonazepam, lopressor, hydralazine, clonidine - Allergies/Adverse Reactions Allergies Allergy/AdvReac Type Severity Reaction Status Date / Time No Known Allergies Allergy Verified 07/30/20 12:22 - Home Medications Medication Instructions Recorded Confirmed Type Albuterol Sulfate [Proair HFA] 2 puff INH Q4HR PRN 09/13/14 09/16/20 History Atorvastatin Calcium 80 mg PO QAM 10/12/14 09/16/20 History Ezetimibe 10 mg PO HS 05/22/18 09/16/20 History Aspirin [Aspirin EC] 81 mg PO QAM 08/01/18 09/16/20 History Pantoprazole [Protonix] 40 mg PO QAM 08/01/18 09/16/20 History Calcitriol 0.25 mcg PO DAILY 02/15/19 09/16/20 History Folic Acid/Vit B Complex and C 1 tablet PO DAILY 02/15/19 09/16/20 History [Dialyvite 800] Sertraline HCl 25 mg PO DAILY 02/15/19 09/16/20 History cloNIDine [Catapres] 0.3 mg PO BID 02/15/19 09/16/20 History clonazePAM [Clonazepam] 0.5 mg PO QPM 02/15/19 09/16/20 History Clopidogrel Bisulfate [Plavix] 75 mg PO DAILY 04/30/19 09/16/20 History Amlodipine [Norvasc] 10 mg PO DAILY #30 tab 05/05/19 09/16/20 Rx Labetalol [Normodyne] 200 mg PO BID #60 tab 05/05/19 09/16/20 Rx Sevelamer Carbonate [Renvela] 800 mg PO TID-WM tab 05/05/19 09/16/20 Rx Furosemide 80 mg PO DAILY 04/08/20 09/16/20 History NIFEdipine [Nifedipine ER] 60 mg PO BID 04/08/20 09/16/20 History hydrALAZINE HCl 100 mg PO BID 04/08/20 09/16/20 History levETIRAcetam [Levetiracetam] 500 mg PO DAILY 04/08/20 09/16/20 History Acetaminophen [Tylenol Extra 1,000 mg PO Q6H PRN tab 04/09/20 09/16/20 Rx Strength] Fluconazole 200 mg PO DAILY #19 tablet 08/03/20 09/16/20 Rx traMADol HCl [Tramadol HCl] 50 mg PO TID PRN #15 tablet 08/03/20 09/16/20 Rx - History PMHx: ESRD on HD MWF, ZOLTAN, HTN, DM2, seizure disorder, CVAx2 PSHx: hysterectomy, cardiac stents, cholecystectomy, peritoneal dialysis catheter removal, appendectomy FHx: mother and father HTN and DM Social: lives in [place] with a friend. former smoker. Currently no T/A/D - Review of Systems General: denies: fever/chills, fatigue Eyes: denies: vision changes ENT: denies: nasal congestion, rhinorrhea Respiratory: reports: shortness of breath. denies: cough, congestion Cardiovascular: denies: chest pain, palpitation Gastrointestinal: denies: nausea, vomiting, diarrhea Genitourinary: denies: dysuria Skin: denies: rashes Musculoskeletal: reports: pain (chronic leg cramps) Neurological: denies: numbness - Vital signs BP: 194/128, HR 104, RR 19, O2 100% on RA, T 98.2 - Physical Exam Constitutional: awake, alert and oriented -Constitutional: Had increased work of breathing, worse after just getting back from the bathroom HEENT: normocephalic and atraumatic, no scleral icterus, grossly normal hearing, normal nasal mucosa Neck: supple, FROM Heart: no murmurs/rubs/gallops, no edema -Heart: tachycardia, regular rhythm Lungs: CTAB, no wheezing Abdomen: soft -Abdomen: mild diffuse tenderness to palpation, no rebound tenderness or guarding Musculoskeletal: normal structure, normal tone, ROM grossly normal Neurological: no focal deficit Skin: no rash/lesions, capillary refill <2 seconds Heme/Lymphatic: no unusual bruising or bleeding Psychiatric: good judgment and insight, intact recent and remote memory FMR H&P: Results - Labs Result Diagrams: 09/16/20 00:36 09/16/20 00:36 Lab results: WBC 12.0 thou/uL (4.8-10.8) H 09/16/20 00:36 Hgb 9.0 g/dL (12.0-16.0) L 09/16/20 00:36 Hct 28.8 % (36.0-47.0) L 09/16/20 00:36 MCV 92.2 fL (78.0-98.0) 09/16/20 00:36 Plt Count 291 thou/uL (130-400) 09/16/20 00:36 Neutrophils % 79.2 % (42.0-75.0) H 09/16/20 00:36 Sodium 140 mmol/L (136-145) 09/16/20 00:36 Potassium 4.1 mmol/L (3.5-5.1) 09/16/20 00:36 Chloride 103 mmol/L (98-107) 09/16/20 00:36 Carbon Dioxide 21 mmol/L (22-29) L 09/16/20 00:36 BUN 54 mg/dL (9.8-20.1) H 09/16/20 00:36 Creatinine 8.79 mg/dL (0.6-1.1) H 09/16/20 00:36 Glucose 96 mg/dL (70-105) 09/16/20 00:36 Calcium 9.2 mg/dL (7.8-10.44) 09/16/20 00:36 Total Bilirubin 0.4 mg/dL (0.2-1.2) 09/16/20 00:36 AST 18 U/L (5-34) 09/16/20 00:36 ALT 10 U/L (8-55) 09/16/20 00:36 Alkaline Phosphatase 69 U/L (40-110) 09/16/20 00:36 B-Natriuretic Peptide 427.1 pg/mL (0-100) H 09/16/20 00:36 Serum Total Protein 7.6 g/dL (6.0-8.3) 09/16/20 00:36 Albumin 4.1 g/dL (3.5-5.0) 09/16/20 00:36 FMR H&P: A/P - Plan Pt is a 55yo female with hx of ESRD on HD MWF who presents with SOB #HTN urgency - SBP 1902-215 in ED. given lopressor, hydralazine, and clonidine - Dr Toussaint consulted from ED and he plans for dialysis today. This is likely what she will need to resolve her elevated BP - will continue home meds - CXR: pending official read but does not appear volume overload #Tachycardia -ekg: sinus tach -pt was very anxious, resumed home benzo -considered other etiologies including infection and PE but seemed less likely, O2 sat 100% on RA #Normocytic Anemia -H/H 05/20.8, stable compared to prior visits -likely due to chronic disease Code: FULL DVT Ppx: Heparin PCP: Ainsley Viera Disposition: Admit to medical obs, plan for dialysis this morning, likely to discharge after is VSS. LOS <48hrs. FMR H&P: Upper Level - Plan Date/Time: 09/16/20 0258 IDay, have evaluated this patient and agree with findings/plan as outlined by international account manager resident. Pertinent changes/additions are listed here. 55 yo F with PMH ESRD on HD, CAD, anemia, DM2 presents for SOB and is admitted for HTN with plans for dialysis. HD is MWF, she has not missed any treatments. B P 216/133 initially in ED. Given lopressor, hydralazine, clonidine with BP improving VS: 188/127, 99, 18, 97.8, 99% on RA PE: Gen: NAD HEENT: Moist MM Heart: RRR, no murmurs. Normal cap refill Lungs: CTAB, no wheezing. No increased work of breathing. Abd: soft, nontender, ND, BS+ Ext: no cyanosis or edema Skin: no rashes HTN urgency - Given lopressor, hydralazine, clonidine in ED with improvement. Goal to lower to closer to 160/100s if possible. Ultimately, HD will correct BPs well. - Home BP meds include hydralazine, amlodipine, nifedipine, labetalol, clonidine. Will restart these. - No signs of end organ damage or obvious volume overload - CXR clear, no O2 requirement, no edema - Plan for HD this am, Dr. Toussaint consulted from ED If symptoms not improved with HD, consider other etiologies for sinus tachycardia including PE though no significant risk factors. Patient is anxious likely contributing to tachy, resume home benzo. Chronic leukocytosis, stable compared to prior Chronic anemia, due to chronic disease Code: FULL Prophylaxis: Heparin Fluids: SL Diet: Renal PCP: ROSIO Attending: Dr. Bales Disposition: admit for observation with plan for HD this morning, if BP better controlled after that will likely be able to d/c Addendum - Attending - Attending Attestation Date/Time: 09/16/20 1031 I personally evaluated the patient and discussed the management with Dr. Calvert/ Koffi. I agree with the History, Examination, Assessment and Plan documented above with any addition or exceptions noted below.
[2020-09-16] MEDS ORDERED: Dextrose 5% in Water 1,000 ML IV PRN (03:38)
[2020-09-16] MEDS ORDERED: Dextrose 50% Abboject 50 ML SYRINGE SLOW IVP PRN (03:38)
[2020-09-16] MEDS ORDERED: Acetaminophen 325 MG TAB PO PRN (03:38)
[2020-09-16] MEDS ORDERED: HumaLOG 300 UNITS/3 ML VIAL SC PRN ×2 (03:38)
[2020-09-16] MEDS ORDERED: clonazePAM 0.5 MG TAB ONE (04:16)
[2020-09-16] MEDS ORDERED: Albuterol 200 PUFF (6.7GM INHALER) INH PRN (04:29)
[2020-09-16 05:34] VITALS: BMI 23.4
[2020-09-16] MEDS: Sevelamer Carbonate 800 MG TAB PO SCH ×3 (07:35→16:15)
[2020-09-16] MEDS: Heparin 5,000 UNITS/ML VIAL SC SCH ×3 (07:36→21:50)
--- NOTE | 2020-09-16 08:01 | RAD ---
Portable frontal chest radiograph: 09/16/2020 COMPARISON: 07/31/2020 HISTORY: Dialysis patient with shortness of breath FINDINGS: Stable prominence of the cardiac silhouette. Mild pulmonary vascular congestion and mild li near interstitial density in the lung bases. Stable left dialysis catheter. No pneumothorax, lobar consolidation, or alveolar edema. IMPRESSION: No focal consolidation or alveolar edema.
[2020-09-16 09:17] LABS: SARS-CoV-2 PCR by NAA DETECTED (NotDetected)
[2020-09-16] MEDS: levETIRAcetam 500 MG TAB PO SCH (10:26)
[2020-09-16] MEDS: Aspirin 81 mg Enteric Coated Tablet PO SCH (10:26)
[2020-09-16] MEDS: NIFEdipine XL 60 MG TAB PO SCH ×2 (10:27→21:49)
[2020-09-16] MEDS: Furosemide 80 MG TAB PO SCH (10:27)
[2020-09-16] MEDS: Calcitriol 0.25 MCG CAP PO SCH (10:27)
[2020-09-16] MEDS: Atorvastatin Calcium 40 MG TAB PO SCH (10:27)
[2020-09-16] MEDS: Clopidogrel Bisulfate 75 MG TAB PO SCH (10:27)
[2020-09-16] MEDS: Labetalol 100 MG TAB PO SCH ×2 (10:27→21:40)
[2020-09-16] MEDS: Folic Acid/Vit B Comp W-C PO SCH (10:28)
[2020-09-16] MEDS: Amlodipine 10 MG TAB PO SCH (10:28)
[2020-09-16] MEDS: hydrALAZINE 25 MG TAB PO SCH ×2 (10:28→21:49)
[2020-09-16] MEDS: cloNIDine 0.3 MG TAB PO SCH ×2 (10:28→21:30)
[2020-09-16] MEDS ORDERED: Heparin 10,000 UNITS/ 10 ML VIAL ONE (12:43)
[2020-09-16] MEDS ORDERED: traMADol HCl 50 MG TAB PO SCH (14:30)
[2020-09-16] MEDS ORDERED: clonazePAM 0.5 MG TAB PO SCH (21:00)
[2020-09-16] MEDS ORDERED: Ezetimibe 10 MG TAB PO SCH (21:00)
--- NOTE | 2020-09-16 23:49 | CON ---
DATE OF CONSULTATION: REASON FOR CONSULTATION: Dyspnea. HISTORY OF PRESENT ILLNESS: This is a 55-year-old female who presented with severe dyspnea, was noted to have COVID positive. The patient does dialysis on Wednesday, Wednesday, and Wednesday. The patient denies any nausea, vomiting, or chest pain. PAST MEDICAL HISTORY: Significant for end-stage renal disease, hypertension, anemia, secondary hyperparathyroidism, appendectomy, hysterectomy, cholecystectomy, peritoneal dialysis catheter, obstructive sleep apnea, diabetes mellitus, CVA. SOCIAL HISTORY: No alcohol or drug use. FAMILY HISTORY: Negative for ESRD. ALLERGIES: REVIEWED. HOME MEDICATIONS: List reviewed. HOSPITAL MEDICATIONS: List reviewed. REVIEW OF SYSTEMS: 15-point review of system was performed, negative except for positives noted above. HEENT: Eyes intact, no diplopia. Ears: No hearing loss or earache. Nose: No discharge or bleeding. Chest: No cough or phlegm. Abdomen: No nausea or vomiting. Genitourinary: No hematuria. No Weiner catheter. Musculoskeletal: No low back pain. No joint swelling or pain. Neurological: No syncope. No seizures. Skin: No complaints of rash or itching. Psychiatric: No depression. Constitutional: No weight loss or loss of appetite. PHYSICAL EXAMINATION: General: The patient is awake and alert. Vital Signs: Afebrile, pulse 75, breathing at 16, blood pressure 161/94. HEENT: Head normocephalic and atraumatic. Eyes intact, no ulcers. Nose intact, no ulcers. Ears intact, no ulcers. Neck: Supple. No JVD. Chest: Symmetrical and clear. Cardiovascular: Shows S1 and S2, no rub, no murmur. Gastrointestinal: Abdomen is soft, bowel sounds positive. Extremities: Show no edema or ulcers. Skin: Shows no rash or petechiae. Musculoskeletal: Shows no joint swelling or stiffness. Genitourinary: Shows no Weiner or CVA tenderness. Neurologic: Motor intact. Cranial nerves intact. LABORATORY DATA: Hemoglobin 9. ASSESSMENT AND PLAN: Chronic kidney disease, stage 6 and dyspnea, plan on dialysis; hypertension; anemia, stable; COVID-19 positive. Overall prognosis is poor. Job ID: [id number]
--- NOTE | 2020-09-17 07:22 | PDOC.FM ---
- Subjective Subjective: Doing well this morning. States she feels much better. She had half of dialysis yesterday. She was unaware she was COVID +. She does not have respiratory symptoms at this time. - Objective MAR Reviewed: Yes Vital Signs & Weight: Vital Signs (12 hours) Temp Pulse Resp BP BP Pulse Ox 09/17/20 05:00 97.8 F 105 H 18 107/70 97 09/17/20 00:00 97.7 F 101 H 18 112/69 100 09/16/20 21:49 100 09/16/20 21:40 100 09/16/20 21:30 161/109 H 09/16/20 20:00 100 Weight Weight 70.023 kg I&O: 09/16/20 09/17/20 09/18/20 06:59 06:59 06:59 Intake Total 490 Balance 490 Result Diagrams: 09/16/20 00:36 09/16/20 00:36 Phys Exam - Physical Examination Constitutional: NAD HEENT: PERRLA, moist MMs Neck: no nodes, no JVD Respiratory: no wheezing, no rales, no rhonchi, clear to auscultation bilateral Cardiovascular: RRR, no significant murmur Gastrointestinal: soft, non-tender Musculoskeletal: no edema Neurological: non-focal, normal sensation, moves all 4 limbs Psychiatric: normal affect, A&O x 3 Skin: no rash, normal turgor Dx/Plan (1) Hypertensive urgency Code(s): I16.0 - HYPERTENSIVE URGENCY Status: Acute (2) S/P hemodialysis catheter insertion Code(s): Z99.2 - DEPENDENCE ON RENAL DIALYSIS Status: Acute (3) COPD (chronic obstructive pulmonary disease) Status: Chronic (4) Dyslipidemia Code(s): E78.5 - HYPERLIPIDEMIA, UNSPECIFIED Status: Chronic (5) ESRD (end stage renal disease) on dialysis Code(s): N18.6 - END STAGE RENAL DISEASE; Z99.2 - DEPENDENCE ON RENAL DIALYSIS Status: Chronic (6) HTN (hypertension) Code(s): I10 - ESSENTIAL (PRIMARY) HYPERTENSION Status: Chronic Qualifiers: - Plan Plan: HTN urgency, resolved - will continue home meds Tachycardia -ekg: sinus tach -pt was very anxious, resumed home benzo -considered other etiologies including infection and PE but seemed less likely, O2 sat 100% on RA -Continue to monitor Normocytic Anemia -H/H 05/20.8, stable compared to prior visits -likely due to chronic disease Stage CKD - Dr. Toussaint consulted. Continue normal dialysis schedule. Code: FULL DVT Ppx: Heparin PCP: Ainsley Viera Disposition: Awaiting CM to set up OP HD with COVID + Status. Stable for d/c once this is established. Addendum - Attending - Attending Attestation Date/Time: 09/17/20 0870 I personally evaluated the patient and discussed the management with Dr. Robles. I agree with the History, Examination, Assessment and Plan documented above with any addition or exceptions noted below. Patient feels well after HD yesterday. She will be having that again today. Her BP is much improved after HD and has been stable. Patient feels well. Has minimal symptoms associated with her COVID diagnosis, CXR clear, afebrile, and normal respiratory vitals. Will need to ensure we can set up her outpatient HD while she is COVID positive and once that complete she should be stable for discharge.
[2020-09-17] MEDS: Labetalol 100 MG TAB PO SCH (08:22)
[2020-09-17] MEDS: hydrALAZINE 25 MG TAB PO SCH (08:22)
[2020-09-17] MEDS: NIFEdipine XL 60 MG TAB PO SCH (08:23)
[2020-09-17] MEDS: Calcitriol 0.25 MCG CAP PO SCH (08:25)
[2020-09-17] MEDS: levETIRAcetam 500 MG TAB PO SCH (08:25)
[2020-09-17] MEDS: Sevelamer Carbonate 800 MG TAB PO SCH ×3 (08:25→16:30)
[2020-09-17] MEDS: Atorvastatin Calcium 40 MG TAB PO SCH (08:25)
[2020-09-17] MEDS: Folic Acid/Vit B Comp W-C PO SCH (08:25)
[2020-09-17] MEDS: Heparin 5,000 UNITS/ML VIAL SC SCH ×2 (08:30→15:00)
[2020-09-17] MEDS: Clopidogrel Bisulfate 75 MG TAB PO SCH (08:30)
[2020-09-17] MEDS: cloNIDine 0.3 MG TAB PO SCH (08:30)
[2020-09-17] MEDS: Aspirin 81 mg Enteric Coated Tablet PO SCH (08:30)
[2020-09-17] MEDS: Furosemide 80 MG TAB PO SCH (08:44)
[2020-09-17] MEDS: Amlodipine 10 MG TAB PO SCH (09:00)
--- NOTE | 2020-09-17 12:36 | PRG ---
DATE OF SERVICE: 09/17/2020 SUBJECTIVE: A 55-year-old female, being seen for end-stage renal disease. The patient denied nausea, vomiting, or chest pain. PHYSICAL EXAMINATION: General: The patient is awake and alert. Vital Signs: Afebrile, pulse 95, breathing at 16, blood pressure 128/84. HEENT: Head normocephalic and atraumatic. Eyes intact, no ulcers. Nose intact, no ulcers. Ears intact, no ulcers. Neck: Supple. No JVD. Chest: Symmetrical and clear. Cardiovascular: Shows S1 and S2, no rub, no murmur. Gastrointestinal: Abdomen is soft, bowel sounds positive. Extremities: Show no edema or ulcers. Skin: Shows no rash or petechiae. Musculoskeletal: Shows no joint swelling or stiffness. Genitourinary: Shows no Weiner or CVA tenderness. Neurologic: Motor intact. Cranial nerves intact. LABORATORY DATA: Reviewed. ASSESSMENT AND PLAN: 1. Stage 6 chronic kidney disease, plan dialysis. 2. Hypertension, stable. 3. Anemia, stable. 4. Medication based on GFR, appropriate. Job ID: [id number]
[2020-09-17] MEDS ORDERED: traMADol HCl 50 MG TAB PO SCH (15:45)
[2020-09-17 16:15] VITALS: BP 126/78; TEMP 98.2
--- NOTE | 2020-09-18 13:02 | DIS ---
DATE OF ADMISSION: 09/16/2020 DATE OF DISCHARGE: 09/17/2020 ADMITTING ATTENDING: Miguel Dumont MD DISCHARGE ATTENDING: John Castro MD CONSULT: Dr. Galvin, Nephrology. He recommended routine dialysis schedule. PROCEDURES: Hemodialysis. PRIMARY DIAGNOSIS: Hypertensive urgency. SECONDARY DIAGNOSES: 1. Hypertension. 2. Normocytic anemia. 3. End-stage renal disease, on hemodialysis. 4. Chronic anemia. 5. COVID-19 asymptomatic infection. DISCHARGE MEDICATIONS: 1. Aspirin 81 mg. 2. Atorvastatin 80 mg. 3. Calcitriol 0.25 mcg. 4. Clonidine 0.3 mg b.i.d. 5. Clonazepam 0.5 mg as needed. 6. Ezetimibe 10 mg. 7. Furosemide 80 mg. 8. Hydralazine 100 mg b.i.d. 9. Keppra 500 mg daily. 10. Nifedipine 60 mg b.i.d. 11. Plavix 75 mg daily. 12. Albuterol 2 puffs q.4 hours p.r.n. 13. Protonix 40 mg daily. 14. Sertraline 25 mg daily. 15. Fluconazole 200 mg daily. 16. Labetalol 200 mg b.i.d. 17. Norvasc 10 mg daily. 18. Renvela 800 mg t.i.d. 19. Tramadol 50 mg t.i.d. p.r.n. 20. Tylenol 1000 mg q.6 p.r.n. DISCONTINUED MEDICATIONS: None. HISTORY OF PRESENT ILLNESS/HOSPITAL COURSE: Ms. Peacock is a 55-year-old female who presented to the ER for chief complaint of shortness of breath. She felt that it was due to her high blood pressure. She has been having recent headaches and blurry vision on occasion. In the emergency room, she was found to have blood pressure of 190 systolic and was given p.r.n. blood pressure medications. Nephrology was consulted who resumed dialysis. After dialysis, her blood pressure went back to her normal, roughly 131/80 and remained normotensive throughout the course of her hospitalization. On admission, she was screened for COVID-19 and found to be positive. However, she was not exhibiting any symptoms of COVID other than shortness of breath, which had resolved after dialysis. Dialysis was arranged to be continued and also transportation arranged by the Dialysis Unit, and she was discharged to home. DISPOSITION: Stable. DISCHARGE INSTRUCTIONS: 1. Location: Home. 2. Diet: Renal. 3. Activity: Ad romana. 4. Follow up with primary care physician within 1 week. Strict ER return precautions for COVID-19 complications were given. Job ID: [id number]
== END 2020-09-17 16:58 | disposition home or self-care (01) ==
LOC: ERS 00:07 → SURG A 02:53 → T4-B 10:02
PROVIDERS: ADMIT Family Medicine; ATTEND Family Medicine
DX: U07.1 COVID-19 (principal); I16.0 Hypertensive urgency; I12.0 Hypertensive chronic kidney disease with stage 5 chronic kidney disease or end stage renal disease; E11.22 Type 2 diabetes mellitus with diabetic chronic kidney disease; N18.6 End stage renal disease; N25.81 Secondary hyperparathyroidism of renal origin; D63.1 Anemia in chronic kidney disease; G47.33 Obstructive sleep apnea (adult) (pediatric); G40.909 Epilepsy, unspecified, not intractable, without status epilepticus; Z86.73 Personal history of transient ischemic attack (TIA), and cerebral infarction without residual deficits; Z79.82 Long term (current) use of aspirin; Z79.899 Other long term (current) drug therapy; Z87.891 Personal history of nicotine dependence; Z99.2 Dependence on renal dialysis
CPT/HCPCS: 71045; 80053; 82962 ×2; 83880; 84484; 85025; 93005; 96372; 96374; 96375; 96376; 99285; G0378 ×3; U0003; U0005; 36415; 36416; 87635; 90935; G0257; J0360; J1644

== ENCOUNTER 2020-10-22 10:27 | Day surgery (SDC) | payer MEDICARE, MEDICAID ==
[2020-10-21 12:02] VITALS: BMI 22.0
[~2020-10-22 10:27] MED LIST: Lidocaine 1% PF 5 ML VIAL ONE; PROPOFOL 200 MG/20 ML VIAL ONE; Rocuronium Bromide 10 MG/ML (10ML VIAL) ONE
[2020-10-22 12:49] LABS: #Basophils 0.1 thou/uL (0.0-0.2); #Eosinphils 0.2 thou/uL (0.0-0.7); #Lymphocytes 1.7 thou/uL (1.20-3.40); #Monocytes 0.7 thou/uL (0.11-0.59); #Neutrophils 5.7 thou/uL (1.40-6.50); %Basophils 0.8 % (0.0-1.0); %Eosinophils 2.7 % (0.0-10.0); %Lymphocytes 19.7 % (21.0-51.0); %Monocytes 8.6 % (0.0-10.0); %Neutrophils 68.3 % (42.0-75.0); Hemoglobin 9.4 g/dL (12.0-16.0); Mean Corpuscular HGB CONC 30.6 g/dL (32.0-36.0); Mean Corpuscular Hemoglobin 29.1 pg (27.0-31.0); Mean Platelet Volume 6.5 fL (7.4-10.4); Platelet Count 452 thou/uL (130-400); RBC Distribution Width 16.2 % (11.5-14.5); Red Blood Cell (RBC) Count 3.25 mill/uL (4.20-5.40); White Blood Cell (WBC) Count 8.4 thou/uL (4.8-10.8)
[2020-10-22 13:00] LABS: Anion Gap 18 mmol/L (10-20); BUN (Urea Nitrogen) 51 mg/dL (9.8-20.1); Calc. Creatinine Clearance 9 mL/min (70-130); Calcium 9.1 mg/dL (7.8-10.44); Carbon Dioxide 22 mmol/L (22-29); Chloride 105 mmol/L (98-107); Glucose 93 mg/dL (70-105); Potassium 4.8 mmol/L (3.5-5.1); Sodium 140 mmol/L (136-145)
[2020-10-22] MEDS ORDERED: Midazolam HCl 2 mg/2 ml Vial ONE (14:43)
[2020-10-22] MEDS ORDERED: Fentanyl 100 MCG/2 ML VIAL ONE ×2 (14:43→15:07)
[2020-10-22] MEDS ORDERED: Bupivacaine PF 0.5% 30 ML VIAL ONE (14:49)
[2020-10-22] MEDS ORDERED: Lidocaine 2% PF 5 ML VIAL ONE (14:49)
[2020-10-22] MEDS ORDERED: Heparin 10,000 UNITS/ 10 ML VIAL ONE (14:49)
[2020-10-22] MEDS ORDERED: Bupivacaine 0.25% HCL 30 ML VIAL ONE (14:49)
[2020-10-22] MEDS ORDERED: EPINEPHrine 1 MG/ML AMP ONE (14:49)
[2020-10-22] MEDS ORDERED: Heparin 1,000 UNITS/ML VIAL ONE ×2 (17:28→17:38)
--- NOTE | 2020-10-22 22:28 | OP ---
DATE OF PROCEDURE: 10/22/2020 PREOPERATIVE DIAGNOSES: End-stage renal disease, history of infected PD catheter requiring removal with catheter free interval, poor veins for fistula in arms. PROCEDURES PERFORMED: Laparoscopic peritoneal dialysis catheter, laparoscopic omentopexy, and laparoscopic adhesiolysis. ANESTHESIA: General, local 0.5% Marcaine 30 mL mixed with 1% Xylocaine with epinephrine 20 mL total volume used. DESCRIPTION OF PROCEDURE: The patient was taken to the operating room, where under general anesthesia, abdomen was prepared with ChloraPrep and draped in routine fashion. Local anesthetic mixture was infiltrated into the skin and subcutaneous tissue about the operative sites. Bilateral subcostal incision was made through old trocar scars and pneumoperitoneum to 15 mmHg was obtained with a Veress needle, replaced with a 5 port, laparoscope inserted. Contralateral 5 port placed subcostal. There were some omental adhesions in the lower abdomen, taken down with the LigaSure. These were filmy adhesions and the omentum reflected. Omentopexy performed with a GraNee needle, 0 Vicryl transabdominal wall fixation suture. Pexing the omentum to the upper abdominal wall, keeping out of the pelvis. Incision was made through an old counter incision umbilical level, left lower quadrant 8 mm port placed under laparoscopic visualization passed caudally through the subcutaneous tissue rectus sheath, penetrating the abdominal cavity inferiorly, placing the PD catheter under laparoscopic visualization in the pelvis, placing the internal cuff in the rectus sheath, removing the port. Stab incision made at the desired exit site and using the [place] dissector, catheter pulled through this incision through the exit site, placed an external cuff beneath the skin. Catheter flushed with heparinized saline solution, 1000 units of heparin/mL . There were no significant adhesions present. Good hemostasis noted. Irrigant and pneumoperitoneum evacuated. All instruments removed and all skin incisions approximated with interrupted subdermal 4-0 Monocryl and sterile dressings applied. The patient tolerated the procedure well. Job ID: [id number]
== END 2020-10-22 18:01 | disposition home or self-care (01) ==
LOC: SDC 10:27
PROVIDERS: ATTEND Specialist
PROC: 0JPT3XZ Removal of Tunneled Vascular Access Device from Trunk Subcutaneous Tissue and Fascia, Percutaneous Approach (ICD-10-PCS; principal; 2020-10-22)
PROC: 0JH83XZ Insertion of Tunneled Vascular Access Device into Abdomen Subcutaneous Tissue and Fascia, Percutaneous Approach (ICD-10-PCS; 2020-10-22)
DX: T85.71XA Infection and inflammatory reaction due to peritoneal dialysis catheter, initial encounter (principal); I12.0 Hypertensive chronic kidney disease with stage 5 chronic kidney disease or end stage renal disease; E11.22 Type 2 diabetes mellitus with diabetic chronic kidney disease; N18.6 End stage renal disease; F41.9 Anxiety disorder, unspecified; F32.9 Major depressive disorder, single episode, unspecified; E78.00 Pure hypercholesterolemia, unspecified; M19.90 Unspecified osteoarthritis, unspecified site; I25.10 Atherosclerotic heart disease of native coronary artery without angina pectoris; E78.5 Hyperlipidemia, unspecified; I25.2 Old myocardial infarction; K21.9 Gastro-esophageal reflux disease without esophagitis; Z79.02 Long term (current) use of antithrombotics/antiplatelets; Z79.82 Long term (current) use of aspirin; Z79.899 Other long term (current) drug therapy; Z95.5 Presence of coronary angioplasty implant and graft
CPT/HCPCS: 80048; 85025; 93005; 93010; J0171; J0690; J1644; J2001; J2250; J2704; J3010; S0020